=== PATIENT | female | born 1990 | race Caucasian/White ===

== ENCOUNTER 2018-10-22 04:21 | Emergency (ER) | payer BC ==
[~2018-10-22] VITALS: Ht 152.4 cm; Wt 58.1 kg
--- NOTE | 2018-10-22 04:31 | NUR ---
Note undone in EDM - 10/22/18 at 0434 by ELLIE BIBRA FROM HOME. AAOX4. NO RESP DISTRESS NOTED, BREATHING EVEN AND UNLABORED. C/O ANXIETY ATTACK. PT STATES THAT SHE FEELS HER HEART RATE FAST AND FEELS PALPITATION. PT STATES THAT SHE HAD CONSUMMED AND UNKNOWN AMOUNT AF VODKA. SHE REPORTS PASSING OUT FROM DRINKING. PT REPORTS THAT HER ANXIETY ID BECAUSE SHE IS BEING A BAD FRIEND. TO ER BED 9. AWAITING MD FOR MAINE.
--- NOTE | 2018-10-22 04:31 | NUR ---
GABRIELA FROM HOME. AAOX4. NO RESP DISTRESS NOTED, BREATHING EVEN AND UNLABORED. C/O ANXIETY ATTACK. PT STATES THAT SHE FEELS HER HEART RATE FAST AND FEELS PALPITATION. PT IS NOTED TACHYCARDIC ON MONITOR. PT STATES THAT SHE HAD CONSUMMED AND UNKNOWN AMOUNT AF VODKA. SHE REPORTS PASSING OUT FROM DRINKING. PT REPORTS THAT HER ANXIETY ID BECAUSE SHE IS BEING A BAD FRIEND. TO ER BED 9. AWAITING MD FOR MAINE.
[2018-10-22] MEDS ORDERED: LORAZEPAM INJ 2 MG/ML VIAL ONE ×2 (05:10→06:05)
[2018-10-22] MEDS ORDERED: ASPIRIN 81 MG TAB.CHEW ONE (05:10)
[2018-10-22 05:14] LABS: BASOPHILS % (AUTO) 0.4 % (0.0-2.0); EOSINOPHILS % (AUTO) 0.3 % (0.0-6.0); HEMATOCRIT 37 % (33-45); HEMOGLOBIN 12.4 g/dL (11.5-14.8); LYMPHOCYTES # (AUTO) 0.5 /CMM (0.8-4.8); LYMPHOCYTES % (AUTO) 13.8 % (20.0-44.0); MEAN CORPUSCULAR HGB CONC 34 g/dl (31.0-36.0); MEAN CORPUSCULAR VOLUME 95 fL (82-100); MONOCYTES # (AUTO) 0.3 /CMM (0.1-1.30); MONOCYTES % (AUTO) 7.7 % (2.0-12.0); NEUTROPHILS # (AUTO) 3.1 /CMM (1.8-8.9); NEUTROPHILS % (AUTO) 77.8 % (43.0-81.0); PLATELET COUNT (AUTO) 80 /CMM (150-450); RED BLOOD CELL COUNT(AUTO) 3.85 MIL/uL (4.0-5.2)
[2018-10-22] MEDS: ASPIRIN 81 MG TAB.CHEW PO ONE (05:15)
[2018-10-22] MEDS: IV D5/ 0.9% NACL 1,000 ML IV ONE (05:15)
[2018-10-22] MEDS: LORAZEPAM INJ 2 MG/ML VIAL IV ONE ×2 (05:15→06:12)
[2018-10-22 05:19] LABS: CALCIUM, SERUM 9.3 mg/dL (8.5-10.1); CARBON DIOXIDE 25 mmol/L (21-32); CHLORIDE 102 mmol/L (98-107); CREATININE 0.8 mg/dL (0.6-1.3); GLUCOSE 124 mg/dL (74-106); POTASSIUM 3.4 mmol/L (3.5-5.1); SODIUM SERUM 138 mmol/L (136-145); UREA NITROGEN, BLOOD 20 mg/dL (7-18)
[2018-10-22 05:35] LABS: ALANINE AMINOTRANSFERASE 54 U/L (12-78); ALBUMIN 3.8 g/dL (3.4-5.0); ALCOHOL, BLOOD 9 mg/dL (0-0); ALKALINE PHOSPHATASE 68 U/L (46-116); ASPARTATE AMINOTRANSFERASE 69 U/L (15-37); BILIRUBIN,DIRECT 0.1 mg/dL (0.0-0.2); BILIRUBIN,TOTAL 0.6 mg/dL (0.2-1.0); TOTAL PROTEIN, SERUM 7.6 g/dL (6.4-8.2)
[2018-10-22 05:36] LABS: ACETAMINOPHEN 0 ug/ml (10-30); SALICYLATE 1.1 mg/dL (2.8-20.0)
[2018-10-22 05:39] LABS: EOSINOPHILS % (MANUAL) 1 % (0-4); LYMPHOCYTES % (MANUAL) 13 % (16-48); MONOCYTES % (MANUAL) 1 % (0-11.0); NEUTROPHILS % (MANUAL) 85 (42-76)
--- NOTE | 2018-10-22 05:50 | NUR ---
PT REPORTS THAT THE CHEST PALPITATIONS ARE BACK. MD MADE AWARE. ORDER TO DO REPEAT EKG. MED ORDERS RECEIVED WELL
[2018-10-22 06:06] LABS: APPEARANCE,URINE Slightly Cloudy (CLEAR); BILIRUBIN,URINE SMALL (NEGATIVE); BLOOD, URINE Negative Ery/uL (NEGATIVE); COLOR,URINE Other (YELLOW); KETONES,URINE Trace (NEGATIVE); LEUKOCYTE ESTERASE ,URINE Negative (NEGATIVE); NITRITE, URINE Negative (NEGATIVE); PROTEIN,URINE 30 mg/dl (NEGATIVE); UGLUCOSE 250 MG/DL mg/dL (NEGATIVE)
[2018-10-22] MEDS: IV LR 1000 ML 1,000 ML IV ONE (06:23)
--- NOTE | 2018-10-22 06:24 | NUR ---
LULU (BOYFRIEND) [phone] PLEASE CALL FOR ANY INFORMATION PER PT
--- NOTE | 2018-10-22 07:19 | NUR ---
PT AND REPORT GIVEN TO DELTA CUNNINGHAM FOR CAMMIE. PT IN BED SLEEPING. NAD NOTED
[2018-10-22 08:10] LABS: RBC,URINE 0-2 /HPF (0-2); WBC,URINE 0-2 /HPF (0-3)
[2018-10-22 08:11] LABS: BACTERIA,URINE Rare /HPF (None Seen); CALCIUM OXALATE CRYSTALS,UR Few /HPF (None Seen); SQUAMOUS EPITHELIAL CELL,UR Few /HPF (None Seen)
--- NOTE | 2018-10-22 08:18 | NUR ---
LAB IN TO DRAW BLOOD VSS SLEEPING CALM AND QUIET NOW
--- NOTE | 2018-10-22 09:00 | NUR ---
PT. VERBALIZED UNDERSTANDING OF AFTERCARE INSTRUCTIONS.IV removed. Catheter intact and site benign. Pressure and 4x4 applied to site. No bleeding noted.
[2018-10-22 10:22] VITALS: BP 125/74
== END 2018-10-22 10:23 | disposition home or self-care (01) ==
LOC: ER 04:25
DX: R00.0 Tachycardia, unspecified (principal); R07.89 Other chest pain; F41.9 Anxiety disorder, unspecified; R00.2 Palpitations; F10.10 Alcohol abuse, uncomplicated; F12.10 Cannabis abuse, uncomplicated; Y90.0 Blood alcohol level of less than 20 mg/100 ml; Z98.890 Other specified postprocedural states
CPT/HCPCS: 36415; 71045; 80048; 80076; 80307; 80329; 81001; 84484 ×2; 84703; 85025; 85378; 93005 ×2; 96374; 96376; 99284; J2060 ×2; J7042; J7120 ×2; 80305; 81000-TC; G0480

== ENCOUNTER 2020-10-10 21:34 | Emergency (ER) | payer BC ==
[~2020-10-10] VITALS: Ht 152.4 cm; Wt 61.2 kg
--- NOTE | 2020-10-10 21:40 | NUR ---
PT BIBRA C/O NEAR SYNCOPE, WEAKNESS, DIZZINESS. PT AAOX4 BREATHING EVENLY AND UNLABORED. PER PT, SHE "NEARLY PASSED OUT AND FELL FORWARD TO HER KNEES". PT ATTACHED TO MONITOR AND POX. PT HAS 20G IV IN LEFT AC. BLOOD OBTAINED AND SENT TO LAB. PA AT BEDSIDE. WILL CONTINUE TO MONITOR.
--- NOTE | 2020-10-10 21:40 | NUR ---
Note undone in EDM - 10/11/20 at 0007 by PATTIE PT BIBRA C/O NEAR SYNCOPY, WEAKNESS, DIZZINESS. PT AAOX4 BREATHING EVENLY AND UNLABORED. PER PT, SHE "NEARLY PASSED OUT AND FELL FORWARD TO HER KNEES". PT ATTACHED TO MONITOR AND POX. PT HAS 20G IV IN LEFT AC. BLOOD OBTAINED AND SENT TO LAB. PA AT BEDSIDE. WILL CONTINUE TO MONITOR.
--- NOTE | 2020-10-10 21:53 | NUR ---
ATIF VANG - BROTHER. [phone]
[2020-10-10 22:23] LABS: BASOPHILS % (AUTO) 0.4 % (0.0-2.0); EOSINOPHILS % (AUTO) 0.1 % (0.0-6.0); HEMATOCRIT 34 % (33-45); HEMOGLOBIN 11.3 g/dL (11.5-14.8); LYMPHOCYTES # (AUTO) 0.6 K/uL (0.8-4.8); LYMPHOCYTES % (AUTO) 5.1 % (20.0-44.0); MEAN CORPUSCULAR HGB CONC 33 g/dl (31.0-36.0); MEAN CORPUSCULAR VOLUME 101 fL (82-100); MONOCYTES # (AUTO) 0.7 K/uL (0.1-1.30); MONOCYTES % (AUTO) 5.3 % (2.0-12.0); NEUTROPHILS # (AUTO) 11.4 K/uL (1.8-8.9); NEUTROPHILS % (AUTO) 89.1 % (43.0-81.0); PLATELET COUNT (AUTO) 233 K/uL (150-450); RED BLOOD CELL COUNT(AUTO) 3.37 MIL/uL (4.0-5.2); WHITE BLOOD COUNT (AUTO) 12.7 K/uL (4.3-11.0)
[2020-10-10] MEDS ORDERED: IV NS 0.9% 1,000 ML BAG IV ONE (22:30)
[2020-10-10 22:33] LABS: CALCIUM, SERUM 9.2 mg/dL (8.5-10.1); CREATININE 0.5 mg/dL (0.6-1.3); POTASSIUM 4.2 mmol/L (3.5-5.1)
[2020-10-10 22:40] LABS: ALBUMIN 2.5 g/dL (3.4-5.0); BILIRUBIN,DIRECT 1.7 mg/dL (0.0-0.2); BILIRUBIN,TOTAL 2.3 mg/dL (0.2-1.0); TOTAL PROTEIN, SERUM 7.5 g/dL (6.4-8.2)
--- NOTE | 2020-10-10 23:06 | NUR ---
URINE SENT TO LAB
[2020-10-10 23:12] LABS: BILIRUBIN,URINE LARGE (NEGATIVE); COLOR,URINE DARK YELLOW (YELLOW); LEUKOCYTE ESTERASE ,URINE Negative (NEGATIVE); NITRITE, URINE Negative (NEGATIVE); PH,URINE 6.5 (5.0-8.0); PROTEIN,URINE Trace mg/dl (NEGATIVE); UGLUCOSE Negative (NEGATIVE); UROBILINOGEN,URINE >=8.0 EU/dL (0.2)
[2020-10-10 23:25] LABS: BACTERIA,URINE Rare /HPF (None Seen); RBC,URINE NONE SEEN /HPF (0-2); SQUAMOUS EPITHELIAL CELL,UR Few /HPF (None Seen); WBC,URINE NONE SEEN /HPF (0-3)
--- NOTE | 2020-10-10 23:44 | NUR ---
Patient discharged to home in stable condition. Written and verbal after care instructions given. Patient verbalizes understanding of instruction. IV removed. Catheter intact and site benign. Pressure and 4x4 applied to site. No bleeding noted. PT ambulatory with a steady gait
[2020-10-10 23:52] VITALS: BP 136/70
== END 2020-10-11 | disposition home or self-care (01) ==
LOC: ER 21:36
DX: R53.1 Weakness (principal); R55 Syncope and collapse; F10.20 Alcohol dependence, uncomplicated; F32.9 Major depressive disorder, single episode, unspecified; Z98.890 Other specified postprocedural states; Y90.9 Presence of alcohol in blood, level not specified
CPT/HCPCS: 36415; 80048; 80076; 80307; 80320; 81001; 84703; 85025; 93005; 99284; J7030; G0480

== ENCOUNTER 2021-02-22 23:45 | Emergency (ER) | payer BC ==
[~2021-02-22] VITALS: Ht 160 cm; Wt 68.0 kg
[2021-02-23 00:57] VITALS: BP 134/71
== END 2021-02-22 23:58 | disposition left against medical advice (07) ==
LOC: ER 23:51
DX: F41.0 Panic disorder [episodic paroxysmal anxiety] (principal); F32.9 Major depressive disorder, single episode, unspecified; Z98.890 Other specified postprocedural states

== ENCOUNTER 2021-03-26 14:08 | Emergency (ER) | payer BC ==
[~2021-03-26] VITALS: Ht 167.6 cm; Wt 74.8 kg
--- NOTE | 2021-03-26 14:23 | NUR ---
Pj ra c/o bilateral lower extremity swelling +3 and pain 3/10 x 3 days. In room air and denies SOB. Respiration regular and unlabored. Attached to the monitor.
--- NOTE | 2021-03-26 15:35 | NUR ---
Patient does not wish to proceed with medical care recommended by Dr. Beaver. Patient given information related to possible complications, up to and including , which could occur as a result of leaving the hospital at this time. Patient verbalizes understanding of risks involved due to leaving against medical advice. Patient has signed AMA form.
[2021-03-26 15:39] VITALS: BP 129/84
== END 2021-03-26 15:41 | disposition left against medical advice (07) ==
LOC: ER 14:10
DX: R60.0 Localized edema (principal); F32.9 Major depressive disorder, single episode, unspecified; Z98.890 Other specified postprocedural states

== ENCOUNTER 2021-08-23 20:56 | Inpatient (IN) | payer BC ==
[~2021-08-23] VITALS: Ht 152.4 cm; Wt 56.7 kg
--- NOTE | 2021-08-23 21:16 | NUR ---
pt bibra c/o sob in detox facility,pt connected to monitor o2 is 98% to 100% on RA.
[2021-08-23] MEDS ORDERED: IV NS 0.9% 1,000 ML BAG IV ONE (21:30)
[2021-08-23 21:43] LABS: BASOPHILS % (AUTO) 0.3 % (0.0-2.0); EOSINOPHILS % (AUTO) 0.3 % (0.0-6.0); HEMATOCRIT 28 % (33-45); HEMOGLOBIN 9.5 g/dL (11.5-14.8); LYMPHOCYTES # (AUTO) 0.4 K/uL (0.8-4.8); LYMPHOCYTES % (AUTO) 6.9 % (20.0-44.0); MEAN CORPUSCULAR HGB CONC 34 g/dl (31.0-36.0); MEAN CORPUSCULAR VOLUME 102 fL (82-100); MONOCYTES # (AUTO) 0.6 K/uL (0.1-1.30); MONOCYTES % (AUTO) 9.8 % (2.0-12.0); NEUTROPHILS # (AUTO) 4.9 K/uL (1.8-8.9); NEUTROPHILS % (AUTO) 82.7 % (43.0-81.0); PLATELET COUNT (AUTO) 73 K/uL (150-450); RED BLOOD CELL COUNT(AUTO) 2.77 MIL/uL (4.0-5.2)
[2021-08-23 21:53] LABS: CALCIUM, SERUM 8.2 mg/dL (8.5-10.1); CREATININE 1.1 mg/dL (0.6-1.3); POTASSIUM 3.7 mmol/L (3.5-5.1)
--- NOTE | 2021-08-23 22:00 | NUR ---
NS NOT GIVEN MD CANCELLED IT.
[2021-08-23 22:05] LABS: BILIRUBIN,DIRECT 17.2 mg/dL (0.0-0.2); BILIRUBIN,TOTAL 21.4 mg/dL (0.2-1.0)
[2021-08-23 22:20] LABS: ALBUMIN 1.4 g/dL (3.4-5.0)
[2021-08-23] MEDS ORDERED: CEFTRIAXONE 1GM BAG (ER ONLY) 1 GM/50 ML PIGGYBACK IV ONE (22:30)
[2021-08-23] MEDS ORDERED: CEFTRIAXONE 1GM BAG (ER ONLY) 50 ML IV ONE (22:55)
[2021-08-23] MEDS ORDERED: TEMAZEPAM 15 MG CAPSULE PO PRN (23:30)
[2021-08-23] MEDS ORDERED: Z GUARD REMEDY 4 OZ OINT TP PRN (23:30)
[2021-08-23] MEDS ORDERED: LORAZEPAM INJ 2 MG/ML VIAL IV PRN (23:30)
[2021-08-23] MEDS ORDERED: ONDANSETRON HCL/PF 4 MG/2 ML VIAL IVP PRN (23:30)
[2021-08-23] MEDS ORDERED: MORPHINE SULFATE INJ 2 MG/ML DISP.SYRIN IV PRN (23:30)
[2021-08-23] MEDS ORDERED: IV NS 0.9% 1,000 ML IV PRN (23:30)
--- NOTE | 2021-08-24 05:59 | NUR ---
covid swab collected and sent
[2021-08-24 06:19] LABS: BASOPHILS # (AUTO) 0.1 K/uL (0.0-0.2); BASOPHILS % (AUTO) 1.6 % (0.0-2.0); EOSINOPHILS % (AUTO) 0.7 % (0.0-6.0); HEMATOCRIT 26 % (33-45); LYMPHOCYTES # (AUTO) 0.4 K/uL (0.8-4.8); MEAN CORPUSCULAR HGB CONC 35 g/dl (31.0-36.0); MEAN CORPUSCULAR VOLUME 102 fL (82-100); MONOCYTES # (AUTO) 0.6 K/uL (0.1-1.30); MONOCYTES % (AUTO) 9.7 % (2.0-12.0); NEUTROPHILS # (AUTO) 4.7 K/uL (1.8-8.9); PLATELET COUNT (AUTO) 62 K/uL (150-450); RED BLOOD CELL COUNT(AUTO) 2.56 MIL/uL (4.0-5.2); WHITE BLOOD COUNT (AUTO) 5.8 K/uL (4.3-11.0)
[2021-08-24 06:57] LABS: CALCIUM, SERUM 8.2 mg/dL (8.5-10.1); CREATININE 1.2 mg/dL (0.6-1.3); PHOSPHORUS 2.7 mg/dL (2.5-4.9); POTASSIUM 3.6 mmol/L (3.5-5.1)
[2021-08-24] MEDS ORDERED: PANTOPRAZOLE 40 MG TABLET.DR PO SCH (07:30)
--- NOTE | 2021-08-24 07:32 | NUR ---
REPORT GIVEN TO DESEAN SORENSON FOR CAMMIE
[2021-08-24] MEDS ORDERED: FOLIC ACID 1 MG TABLET ONE (08:35)
[2021-08-24] MEDS ORDERED: THIAMINE HCL 100 MG TABLET ONE (08:35)
[2021-08-24] MEDS ORDERED: PANTOPRAZOLE 40 MG TABLET.DR PO ONE (08:35)
[2021-08-24] MEDS ORDERED: FOLIC ACID 1 MG TABLET PO SCH (09:00)
[2021-08-24] MEDS ORDERED: THIAMINE HCL 100 MG TABLET PO SCH (09:00)
[2021-08-24 09:44] LABS: EOSINOPHILS % (MANUAL) 1 % (0-4); LYMPHOCYTES % (MANUAL) 4 % (16-48); MONOCYTES % (MANUAL) 3 % (0-11.0); NEUTROPHILS % (MANUAL) 92 (42-76)
[2021-08-24] MEDS ORDERED: CHOL100043 PO (10:01)
[2021-08-24] MEDS ORDERED: THIA100T70 PO (10:01)
[2021-08-24] MEDS ORDERED: BACI28.42 TP (10:01)
[2021-08-24] MEDS ORDERED: FLUC200T8 PO (10:01)
[2021-08-24] MEDS ORDERED: MULT1TAB70 PO (10:01)
[2021-08-24] MEDS ORDERED: FOLI0.4T6 PO (10:01)
--- NOTE | 2021-08-24 11:55 | NUR ---
IV CANNULA REMOVED
--- NOTE | 2021-08-24 11:55 | NUR ---
PATIENT WENT AMA DESPITE EXPLANATION. FORM SIGNED. DR DOROTHY OSORIO MADE AWARE.
[2021-08-24 12:17] VITALS: BP 138/71
[2021-08-24] MEDS ORDERED: CEFTRIAXONE 1 G in IV D5W 50 ML IV SCH (21:00)
== END 2021-08-24 11:55 | disposition left against medical advice (07) | DRG 372 ==
LOC: ER 21:05 → TRANSITION 08-24 00:36
PROVIDERS: ADMIT Nurse Practitioner Acute Care; ATTEND Nurse Practitioner Acute Care
DX: K65.2 Spontaneous bacterial peritonitis (principal); E87.1 Hypo-osmolality and hyponatremia; K76.6 Portal hypertension; J90 Pleural effusion, not elsewhere classified; K80.70 Calculus of gallbladder and bile duct without cholecystitis without obstruction; D69.59 Other secondary thrombocytopenia; Z53.29 Procedure and treatment not carried out because of patient's decision for other reasons; Z20.822 Contact with and (suspected) exposure to COVID-19; Z98.890 Other specified postprocedural states; F32.A Depression, unspecified; K70.10 Alcoholic hepatitis without ascites; D53.9 Nutritional anemia, unspecified; E88.09 Other disorders of plasma-protein metabolism, not elsewhere classified; F10.10 Alcohol abuse, uncomplicated; Y90.9 Presence of alcohol in blood, level not specified
CPT/HCPCS: 36415; 71045-TC; 80048-TC; 80076-TC; 82140-TC; 83690-TC; 83735-TC; 84100-TC; 84703-TC; 85025-TC; 85730-TC; G0378; J0696; J2060; J2270; J2405; J7030; J7060

== ENCOUNTER 2021-11-19 11:24 | Inpatient (IN) | payer BC ==
[~2021-11-19] VITALS: Ht 152.4 cm; Wt 60.3 kg
[2021-11-19] VITALS: BP 113/43
[~2021-11-19 11:24] MED LIST: BACI28.42 TP; CHOL100043 PO; FLUC200T8 PO; FOLI0.4T6 PO; MULT1TAB70 PO; THIA100T70 PO
--- NOTE | 2021-11-19 11:30 | NUR ---
BIBRA 89 FROM HOME W/ C/O NAUSEA/VOMITING AND LOW BLOOD SUGAR (52); ZOFRAN, D10 AND 250 ML NS GIVEN PERFORMANCE IMPROVEMENT MANAGER. TO ER BED 12.
--- NOTE | 2021-11-19 11:55 | NUR ---
MIRIAM ([facility]) [phone]
[2021-11-19] MEDS ORDERED: IV NS 0.9% 500 ML BAG IV ONE (12:00)
[2021-11-19] MEDS ORDERED: ONDANSETRON HCL/PF 4 MG/2 ML VIAL IVP ONE (12:00)
--- NOTE | 2021-11-19 12:00 | NUR ---
COVID SWAB COLLECTED AND SENT TO LAB
[2021-11-19] MEDS ORDERED: ONDANSETRON HCL/PF 4 MG/2 ML VIAL ONE ×2 (12:15→13:44)
--- NOTE | 2021-11-19 12:15 | NUR ---
PT RETURNED FROM RADIOLOGY
--- NOTE | 2021-11-19 12:25 | NUR ---
IV LINE ON LAC #20 STUDENT ADMISSIONS CLERK; BLOOD DRAWN AND SENT TO LAB.
--- NOTE | 2021-11-19 12:39 | NUR ---
EKG DONE AT BED SIDE
--- NOTE | 2021-11-19 12:42 | NUR ---
PT CONDITION STABL NO PAIN
[2021-11-19 12:55] LABS: SERUM AMMONIA 28 umol/L (11-32)
[2021-11-19 12:59] LABS: ALANINE AMINOTRANSFERASE 43 U/L (12-78); ALBUMIN 2.1 g/dL (3.4-5.0); ALKALINE PHOSPHATASE 122 U/L (46-116); ASPARTATE AMINOTRANSFERASE 258 U/L (15-37); BILIRUBIN,DIRECT 9.2 mg/dL (0.0-0.2); BILIRUBIN,TOTAL 12.6 mg/dL (0.2-1.0); CALCIUM, SERUM 8.2 mg/dL (8.5-10.1); CARBON DIOXIDE 13 mmol/L (21-32); CHLORIDE 98 mmol/L (98-107); CREATININE 0.8 mg/dL (0.6-1.3); GLUCOSE 132 mg/dL (74-106); LIPASE 72 U/L (73-393); SODIUM SERUM 138 mmol/L (136-145); TOTAL PROTEIN, SERUM 8.2 g/dL (6.4-8.2); UREA NITROGEN, BLOOD 10 mg/dL (7-18)
[2021-11-19 13:11] LABS: BASOPHILS % (AUTO) 0.4 % (0.0-2.0); LYMPHOCYTES # (AUTO) 0.4 K/uL (0.8-4.8); LYMPHOCYTES % (AUTO) 9.6 % (20.0-44.0); MEAN CORPUSCULAR HGB CONC 34 g/dl (31.0-36.0); MEAN CORPUSCULAR VOLUME 112 fL (82-100); MONOCYTES # (AUTO) 0.4 K/uL (0.1-1.30); MONOCYTES % (AUTO) 8.3 % (2.0-12.0); NEUTROPHILS # (AUTO) 3.8 K/uL (1.8-8.9); NEUTROPHILS % (AUTO) 81.7 % (43.0-81.0); WHITE BLOOD COUNT (AUTO) 4.6 K/uL (4.3-11.0)
--- NOTE | 2021-11-19 13:15 | NUR ---
TROPONIN 55 PER LAB; DR. LOCKHART MADE AWARE.
[2021-11-19 13:17] LABS: RED BLOOD CELL COUNT(AUTO) 1.45 MIL/uL (4.0-5.2)
[2021-11-19 13:19] LABS: HEMATOCRIT 16 % (33-45); HEMOGLOBIN 5.6 g/dL (11.5-14.8); PLATELET COUNT (AUTO) 32 K/uL (150-450)
[2021-11-19] MEDS ORDERED: IV NS 0.9% 1,000 ML BAG IV ONE (13:30)
[2021-11-19] MEDS ORDERED: CEFTRIAXONE 1GM BAG (ER ONLY) 50 ML IV ONE (13:47)
[2021-11-19] MEDS ORDERED: CEFTRIAXONE 1GM BAG (ER ONLY) 1 GM/50 ML PIGGYBACK IV ONE (14:00)
[2021-11-19] MEDS ORDERED: ONDANSETRON HCL/PF 4 MG/2 ML VIAL IV ONE (14:00)
--- NOTE | 2021-11-19 14:00 | NUR ---
GOT BED 117-2
--- NOTE | 2021-11-19 14:04 | NUR ---
REPORT GIVEN TO NURSE VUONG FOR CAMMIE
[2021-11-19 14:11] LABS: BASOPHILS % (MANUAL) 0 % (0.0-2.0); EOSINOPHILS % (MANUAL) 0 % (0-4); LYMPHOCYTES % (MANUAL) 9 % (16-48); MONOCYTES % (MANUAL) 8 % (0-11.0); NEUTROPHILS % (MANUAL) 83 (42-76)
--- NOTE | 2021-11-19 14:36 | NUR ---
PT TRANSFERRED TO [facility] VIA [facility] ACLS PROTOCOL.
--- NOTE | 2021-11-19 16:00 | NUR ---
[facility] RN OPENING NOTE RECEIVED PATIENT FROM ER VIA VIKTOR ASSISTED BY 2 ER STAFF. ALERT, ORIENTED X 4. ON ROOM AIR. WITH LEFT ANTECUBITAL IV SALINE LOCK, INTACT AND PATENT. INITIAL PHYSICAL ASSESSMENT DONE. ORIENTED PATIENT TO ROOM. PLACED PATIENT ON NPO. BED IS LOCKED IN LOWEST POSITION, 3 SIDE RAILS UP, CALL LIGHT WITHIN REACH. WILL CONTINUE TO MONITOR.
[2021-11-19] MEDS ORDERED: MAGNESIUM HYDROXIDE 30 ML UDC PO PRN (16:30)
[2021-11-19] MEDS ORDERED: ACETAMINOPHEN 325 MG TABLET PO PRN (16:30)
[2021-11-19] MEDS ORDERED: Z GUARD REMEDY 4 OZ OINT TP PRN (16:30)
[2021-11-19] MEDS ORDERED: GUAIFENESIN/D-METHORPHAN HB 5 ML UDC PO PRN (16:30)
--- NOTE | 2021-11-19 16:30 | NUR ---
BRENDAN FALK NOTIFIED REGARDING ELEVATED TROPONIN AND LACTIC ACID.
[2021-11-19] MEDS: POTASSIUM CL. PREMIX PERIPHER. 50 ML IV SCH ×4 (17:27→22:04)
[2021-11-19] MEDS: PANTOPRAZOLE 40 MG VIAL IV SCH (17:52)
[2021-11-19] MEDS ORDERED: PHYTONADIONE INJ 10 MG/1 ML AMPUL SQ ONE (18:30)
[2021-11-19 18:48] VITALS: BP 111/54
--- NOTE | 2021-11-19 18:51 | NUR ---
RN CLOSING NOTE PATIENT IS RESTING COMFORTABLY IN BED. BREATHING UNLABORED AND NOT IN ANY FORM OF DISTRESS. LEFT ANTECUBITAL LINE INTACT AND HAS ONGOING INFUSION OF POTASSIUM 50 ML (2ND BAG OUT 4 BAGS) AND NS AT 75 ML/HR. ZOSYN IV AND BLOOD TRANSFUSION WILL BE GIVEN ONCE ALL REQUIRED POTASSIUM REPLACEMENT BAGS ARE GIVEN. PATIENT IS ON NPO. ALL DUE MEDS GIVEN. ALL SAFETY PRECAUTIONS ARE KEPT IN PLACE. WILL ENDORSE TO [place] AND SILVERWARE SALESPERSON NURSE.
--- NOTE | 2021-11-19 19:38 | NUR ---
[facility] RN OPENING NOTE: RECEIVED PATIENT RESTING COMFORTABLY IN BED. ON RA TOLERATING WELL, BREATHING EVEN AND UNLABORED AND NOT IN ANY FORM OF RESPIRATORY DISTRESS. WITH IV ACCESS ON LEFT ANTECUBITAL LINE INTACT AND HAS ONGOING INFUSION OF POTASSIUM 50 ML (2ND BAG OUT 4 BAGS) AND NS AT 75 ML/HR. AWAITING FOR ZOSYN IV AND BLOOD TRANSFUSION TO BE GIVEN ONCE ALL REQUIRED POTASSIUM REPLACEMENT BAGS ARE GIVEN. PATIENT REMAINS ON NPO. CALL LIGHT WITHIN REACH, BED IN LOWEST AND LOCKED POSITION, SIGNIFICANT OTHER AT BEDSIDE. WILL CONTINUE TO MONITOR CLOSELY.
[2021-11-19 19:46] LABS: OCCULT BLOOD STOOL POSITIVE (NEGATIVE)
[2021-11-19 20:00] VITALS: BP 110/50
[2021-11-19] MEDS: ONDANSETRON HCL/PF 4 MG/2 ML VIAL IVP PRN (20:16)
[2021-11-19] MEDS: PIPERACILLIN /TAZOBACTAM 3.375 G in IV D5W 50 ML IV SCH (23:18)
--- NOTE | 2021-11-19 23:35 | NUR ---
RN NOTE PATIENT REFUSED BLOOD DRAWN FOR ABG, PT IS HARDSTICK TO OBTAIN NEW IV ACCESS. DOC BERJ ORDERED MIDLINE INSERTION. STILL AWAITING FOR BLOOD TRANSFUSION.
[2021-11-20] VITALS (21 sets, daily range): BP systolic 100–120; BP diastolic 43–77
--- NOTE | 2021-11-20 02:40 | NUR ---
RN NOTE BLOOD TRANSFUSION STARTED AT THIS TIME, BLOOD PRODUCT COMPATIBILITY CHECKED, V/S TAKEN AND RECORDED, WILL CONT TO MONITOR CLOSELY FOR ANY ADVERSE REACTION.
--- NOTE | 2021-11-20 03:00 | NUR ---
RN NOTE PATIENT REQUESTED TO HAVE FLUIDS BY MOUTH. SHE'S BEEN NPO SINCE YESTERDAY AFTERNOON DUE TO N/V. INFORMED DOC YADI, ORDERED CLEAR LIQUID DIET TO START NOW.
[2021-11-20] MEDS: PANTOPRAZOLE 40 MG VIAL IV SCH ×2 (04:20→15:35)
--- NOTE | 2021-11-20 06:07 | NUR ---
RN NOTE BLOOD TRANSFUSION DONE AT THIS TIME. PATIENT ABLE TO TOLERATE WELL. V/S TAKEN AND RECORDED, NO ADVERSE REACTION NOTED THROUGHOUT THE TRANSFUSION. NO COMPLAINTS OF SOB AND PAIN, WILL CONT TO MONITOR.
[2021-11-20] MEDS: PIPERACILLIN /TAZOBACTAM 3.375 G in IV D5W 50 ML IV SCH ×3 (06:11→17:54)
--- NOTE | 2021-11-20 06:57 | NUR ---
[facility] RN CLOSING NOTE PATIENT IS RESTING COMFORTABLY IN BED. BREATHING EVEN AND UNLABORED. NOT IN ANY FORM OF DISTRESS. LEFT ANTECUBITAL LINE INTACT RUNNING NS AT 75 ML/HR. S/P 1PRBC. ALL DUE MEDS GIVEN. KEPT DRY AND CLEAN, ALL NEEDS ATTENDED, SAFETY PRECAUTIONS ARE KEPT IN PLACE. SECURITY AT BEDSIDE, CALL LIGHT WITHIN REACH, YESIKA IN LOWEST AND LOCKED POSITION. AWAITING FOR MIDLINE INSERTION, WILL ENDORSE TO AM SHIFT NURSE.
[2021-11-20] MEDS: methylPREDNISolone SOD SUCC 40 MG/ML VIAL IV SCH (08:31)
[2021-11-20] MEDS ORDERED: prednisoLONE 5 MG/5 ML UDC PO SCH (09:00)
[2021-11-20 09:11] LABS: BASOPHILS % (AUTO) 0.6 % (0.0-2.0); EOSINOPHILS % (AUTO) 0.2 % (0.0-6.0); LYMPHOCYTES # (AUTO) 0.5 K/uL (0.8-4.8); LYMPHOCYTES % (AUTO) 13.3 % (20.0-44.0); MEAN CORPUSCULAR HGB CONC 34 g/dl (31.0-36.0); MEAN CORPUSCULAR VOLUME 106 fL (82-100); MONOCYTES # (AUTO) 0.5 K/uL (0.1-1.30); MONOCYTES % (AUTO) 12.5 % (2.0-12.0); NEUTROPHILS # (AUTO) 2.9 K/uL (1.8-8.9); NEUTROPHILS % (AUTO) 73.4 % (43.0-81.0)
[2021-11-20] MEDS: MORPHINE SULFATE INJ 2 MG/ML DISP.SYRIN IV PRN (09:13)
[2021-11-20 09:16] LABS: RED BLOOD CELL COUNT(AUTO) 1.75 MIL/uL (4.0-5.2)
[2021-11-20 09:20] LABS: HEMATOCRIT 19 % (33-45); HEMOGLOBIN 6.3 g/dL (11.5-14.8); PLATELET COUNT (AUTO) 30 K/uL (150-450)
[2021-11-20 09:59] LABS: ALBUMIN 1.9 g/dL (3.4-5.0); BILIRUBIN,DIRECT 8.9 mg/dL (0.0-0.2); BILIRUBIN,TOTAL 12.5 mg/dL (0.2-1.0); CALCIUM, SERUM 7.7 mg/dL (8.5-10.1); CREATININE 1.1 mg/dL (0.6-1.3); POTASSIUM 3.1 mmol/L (3.5-5.1); TOTAL PROTEIN, SERUM 7.5 g/dL (6.4-8.2)
[2021-11-20 10:08] LABS: BAND % (MANUAL) 3 % (0.0-5.0); BASOPHILS % (MANUAL) 0 % (0.0-2.0); EOSINOPHILS % (MANUAL) 0 % (0-4); LYMPHOCYTES % (MANUAL) 13 % (16-48); MAGNESIUM 1.2 mg/dL (1.8-2.4); MONOCYTES % (MANUAL) 10 % (0-11.0); NEUTROPHILS % (MANUAL) 74 (42-76)
[2021-11-20 11:23] LABS: THYROID STIMULATING HORMONE 1.878 uIU/mL (0.358-3.74)
--- NOTE | 2021-11-20 11:58 | NUR ---
[facility]/RN PATIENT WITH ONGOING PRBC TRANSFUSION. ONLY ONE IV ACCESS AT THIS TIME. PT REFUSES PLACEMENT OF NEW PERIPHERAL IV LINE, MIDLINE ORDERED. UNABLE TO ADMINISTER IV MEDICATION AT THIS TIME, WILL HOLD IV ABX UNTIL AFTER BLOOD TRANSFUSION.
[2021-11-20] MEDS ORDERED: POTASSIUM CHLORIDE 20 MEQ TAB.PRT.SR PO SCH (13:00)
[2021-11-20] MEDS ORDERED: Magnesium 1GM/D5W 100ML PREMIX 100 ML IV SCH (13:00)
--- NOTE | 2021-11-20 13:35 | NUR ---
[facility]/RN 1 UNIT PRBC COMPLETED. VITAL SIGNS STABLE. NO SIGNS OF ADVERSE EFFECT.
[2021-11-20] MEDS: Magnesium 1GM/D5W 100ML PREMIX 100 ML IV SCH ×3 (14:26→17:01)
[2021-11-20 15:34] LABS: BASOPHILS % (AUTO) 0.2 % (0.0-2.0); HEMOGLOBIN 7.3 g/dL (11.5-14.8); LYMPHOCYTES # (AUTO) 0.2 K/uL (0.8-4.8); LYMPHOCYTES % (AUTO) 8.1 % (20.0-44.0); MEAN CORPUSCULAR HGB CONC 36 g/dl (31.0-36.0); MEAN CORPUSCULAR VOLUME 101 fL (82-100); MONOCYTES # (AUTO) 0.1 K/uL (0.1-1.30); MONOCYTES % (AUTO) 3.5 % (2.0-12.0); NEUTROPHILS # (AUTO) 2.6 K/uL (1.8-8.9); NEUTROPHILS % (AUTO) 88.2 % (43.0-81.0); RED BLOOD CELL COUNT(AUTO) 2.02 MIL/uL (4.0-5.2)
[2021-11-20] MEDS: IV NS 0.9% 1,000 ML IV PRN (15:35)
[2021-11-20 15:47] LABS: PLATELET COUNT (AUTO) 25 K/uL (150-450)
[2021-11-20 15:48] LABS: HEMATOCRIT 20 % (33-45)
--- NOTE | 2021-11-20 15:56 | NUR ---
[facility]/RN HEMOGLOBIN 7.3, HEMATOCRIT 20 AND PLT 25. DNP FALK NOTIFIED.
[2021-11-20 16:33] LABS: LYMPHOCYTES % (MANUAL) 8 % (16-48); MONOCYTES % (MANUAL) 1 % (0-11.0); NEUTROPHILS % (MANUAL) 91 (42-76)
--- NOTE | 2021-11-20 19:22 | NUR ---
[facility] RN CLOSING NOTE: PATIENT REMAINS IN BED. AWAKE, A0X4. ON RA, BREATHING EVEN AND UNLABORED. NO S/S OF ACUTE DISTRESS. TELE MONITOR READS NSR WITH HR OF 91 BPM AT THIS TIME. LEFT ANTECUBITAL #20 G, PATENT AND INTACT, WITH NS RUNNING @ 75 ML/HR. SHE ALSO HAS HIWOT MIDLINE, PATENT AND INTACT. SALINE LOCKED. DRESSING C/D/I FOR BOTH IV SITES. S/P 2 PRBC THIS SHIFT. VS STABLE. ALL DUE MEDS GIVEN. KEPT DRY AND CLEAN. ALL NEEDS ATTENDED. SAFETY PRECAUTIONS MAINTAINED: SECURITY AT BEDSIDE, CALL LIGHT WITHIN REACH, YESIKA IN LOWEST AND LOCKED POSITION. WILL ENDORSE CONTINUITY OF CARE TO MATERIAL HANDLER LOADER RN.
--- NOTE | 2021-11-20 20:00 | NUR ---
[facility] RN OPENING NOTE: RECEIVED PATIENT IN BED COMFORTABLE.PER ENDORSEMENT PTS S/P PRBC . ON R/A TOLERATING WELL,SATING 99% NO SOB NO DISTRESS NOTED BREATHING EVEN AND UNLABORED AND NOT IN ANY FORM OF RESPIRATORY DISTRESS.V/S STABLE AFEBRILE . IV ACCESS ON LEFT ANTECUBITAL g20 AND RIGHT UPPER ARM MIDLINE LINE BOTH INTACT AND PATENT . IVF OF NS AT 75CC/HR INFUSING WELL . PATIENT ON CLEAR LIQUID ORDERED. .DUE MEDS GIVEN ORDERED NO ASE NOTED CALL LIGHT WITHIN REACH, ALL NEEDS ATTENDED TOO ,BED IN LOWEST AND LOCKED POSITION, WILL CONTINUE TO MONITOR CLOSELY. PER ENDORSEMENT FFP PLASMA AND PLATELETS TO BE GIVEN , SPOKE TO BRAIN IN THE LAB ONLY PLASMA CAN BE GIVEN TONITE BECAUSE PLATELETS NOT AVAILABLE YET MAYBE ERUM .DENISSE IBARRA IN AM TO FOLLOW UP .
--- NOTE | 2021-11-20 21:32 | NUR ---
ryan rn notes FFP plasma started as ordered double check by 2 rn , v/s stable afebrile no ase noted will continue to monitor pts.
--- NOTE | 2021-11-20 22:27 | NUR ---
[facility] RN NOTES FFP PLASMA ENDED AT 2227 HRS WITH NO COMPLICATION NOTED NO ASE NOTED ,V/S STABLE AFEBRILE WILL CONTINUE TO MONITOR PTS.
[2021-11-21] VITALS (12 sets, daily range): BP systolic 115–136; BP diastolic 69–86
[2021-11-21] MEDS: PANTOPRAZOLE 40 MG VIAL IV SCH ×2 (04:39→17:02)
[2021-11-21] MEDS: IV NS 0.9% 1,000 ML IV PRN (05:36)
--- NOTE | 2021-11-21 06:42 | NUR ---
telehealth nurse closing notes Pts in bed comfortably sleeping , on room air. sating 96% no SOB. no S/S of distress noted. Iv site at Right ac # 20 right upper arm ml intact and infusing well NS@ 75ml/hr. VS is stable. Tele monitor showed SR hr 60. Kept Pt clean, dry and comfortable. Safety precautions is maintained. Bed at low position, brakes locked, side rails upX2, hob elevated, bed alarm is on, and call light is within reach. Will endorse to to rn shift for continuity of care, pts refused the am lab will endorse to morning shift to follow up
--- NOTE | 2021-11-21 07:16 | NUR ---
ryan rn notes Received order from dr lori rose to put pts on npo status. order noted and carried out.
--- NOTE | 2021-11-21 08:09 | NUR ---
drivers license examiner OPENING NOTE PATIENT IN BED SLEEPING. PATIENT IS ALERT AND ORIENTED X4. PATIENT IS ON ROOM AIR. NO SIGNS OF PAIN OR DISCOMFORT. PATIENT HAS IV SITE ON RIGHT AC 20 GAUGE. PATIENT HAS RIGHT UPPER ARM MIDLINE. PATIENT IS NPO . ALL Safety precautions is maintained. Bed at lowEST position, SIDE RAILS UP X2.HOB ELEVATED. BED ALARM IS ON. CALL LIGHT WITHIN REACH.WILL CONTINUE TO ASSESS THROUGHOUT SHIFT.
--- NOTE | 2021-11-21 08:12 | NUR ---
PATIENT HAS PRIVATE SECURITY AT BEDSIDE.
--- NOTE | 2021-11-21 08:12 | NUR ---
PLATELETS READY FOR PICKUP
[2021-11-21] MEDS: methylPREDNISolone SOD SUCC 40 MG/ML VIAL IV SCH (08:58)
[2021-11-21 09:22] LABS: BASOPHILS % (AUTO) 1.1 % (0.0-2.0); HEMATOCRIT 22 % (33-45); HEMOGLOBIN 7.8 g/dL (11.5-14.8); LYMPHOCYTES # (AUTO) 0.2 K/uL (0.8-4.8); LYMPHOCYTES % (AUTO) 5.1 % (20.0-44.0); MEAN CORPUSCULAR HGB CONC 35 g/dl (31.0-36.0); MEAN CORPUSCULAR VOLUME 101 fL (82-100); MONOCYTES # (AUTO) 0.4 K/uL (0.1-1.30); MONOCYTES % (AUTO) 12.2 % (2.0-12.0); NEUTROPHILS # (AUTO) 2.9 K/uL (1.8-8.9); NEUTROPHILS % (AUTO) 81.6 % (43.0-81.0); RED BLOOD CELL COUNT(AUTO) 2.23 MIL/uL (4.0-5.2); WHITE BLOOD COUNT (AUTO) 3.6 K/uL (4.3-11.0)
[2021-11-21 09:25] LABS: BILIRUBIN,TOTAL 13.2 mg/dL (0.2-1.0); CALCIUM, SERUM 7.4 mg/dL (8.5-10.1); MAGNESIUM 2.2 mg/dL (1.8-2.4); PHOSPHORUS 1.1 mg/dL (2.5-4.9); POTASSIUM 3.2 mmol/L (3.5-5.1); TOTAL PROTEIN, SERUM 7.4 g/dL (6.4-8.2)
[2021-11-21 09:51] LABS: PLATELET COUNT (AUTO) 27 K/uL (150-450)
[2021-11-21 10:08] LABS: BAND % (MANUAL) 3 % (0.0-5.0); BASOPHILS % (MANUAL) 0 % (0.0-2.0); EOSINOPHILS % (MANUAL) 0 % (0-4); LYMPHOCYTES % (MANUAL) 6 % (16-48); MONOCYTES % (MANUAL) 9 % (0-11.0); NEUTROPHILS % (MANUAL) 82 (42-76)
--- NOTE | 2021-11-21 10:41 | NUR ---
NOTIFIED DR. FALK ON PLATELETS. AWARE. PLATELET TRANSFUSION
[2021-11-21] MEDS ORDERED: Sodium Phosphate 15 MMOL in IV NS 0.9% 245 ML IV SCH (11:00)
--- NOTE | 2021-11-21 13:23 | NUR ---
telemarketing representative note suspicious smell of weed in the room, notified security and Blair. Blair, security and rn went to the room to educate the importance of not smoking in room. pt and family verbalized understanding.
--- NOTE | 2021-11-21 15:43 | NUR ---
telesales supervisor note patient has private security at bedside
[2021-11-21] MEDS: MORPHINE SULFATE INJ 2 MG/ML DISP.SYRIN IV PRN (18:15)
--- NOTE | 2021-11-21 18:15 | NUR ---
PT COMPLAINING OF PAIN ON A SCALE OF 0-10. GAVE MORPHINE PATIENT IS ALSO COMPLAING OF NAUSEA.GAVE ZOFRAN
[2021-11-21] MEDS: ONDANSETRON HCL/PF 4 MG/2 ML VIAL IVP PRN (18:26)
--- NOTE | 2021-11-21 18:43 | NUR ---
PAVING INSPECTOR CLOSING NOTE PATIENT IS AWAKE, ALERT AND ORIENTED X4. PATIENT O2 TOLERATING WELL ABOVE 95%. PATIENT IS ON ROOM AIR. PATIENT HAS IV SITE ON RIGHT AC 20 GAUGE, RIGHT UPPER ARM MIDLINE. IV PATENT AND FLUSHING WELL. PATIENT IS ON CLEAR LIQUID DIET . PATIENT USES BEDSIDE COMMODE. ALL Safety precautions is maintained. Bed LOCKED AT LOWEST. position,SIDE RAILS UP X2.HOB ELEVATED. . CALL LIGHT WITHIN REACH.
--- NOTE | 2021-11-21 19:30 | NUR ---
MS RN OPENING NOTE RECEIVED PATIENT IN ASLEEP IN BED, A/OX4, BODYGUARD/SECURIY AT BEDSIDE.PATIENT ON RA TOLERATING WELL, NO S/S OF ACUTE RESP DISTRESS.BREATHING EVEN AND UNLABORED.V/S STABLE. IV ACCESS ON LAC g20 AND HIWOT MIDLINE LINE BOTH INTACT AND PATENT.CALL LIGHT WITHIN REACH,BED IN LOWEST AND LOCKED POSITION, WILL CONTINUE TO MONITOR
--- NOTE | 2021-11-22 01:36 | NUR ---
MS RN NOTE UA WAS COLLECTED, LAB WAS CALLED FOR PICKUP.
[2021-11-22 04:00] VITALS: BP 129/78
[2021-11-22] MEDS: PANTOPRAZOLE 40 MG VIAL IV SCH ×2 (05:17→17:19)
[2021-11-22 07:06] LABS: HEMATOCRIT 23 % (33-45); HEMOGLOBIN 7.9 g/dL (11.5-14.8); MEAN CORPUSCULAR HGB CONC 35 g/dl (31.0-36.0); MEAN CORPUSCULAR VOLUME 101 fL (82-100); RED BLOOD CELL COUNT(AUTO) 2.28 MIL/uL (4.0-5.2); WHITE BLOOD COUNT (AUTO) 2.9 K/uL (4.3-11.0)
--- NOTE | 2021-11-22 07:08 | NUR ---
MS RN CLOSING NOTE PATIENT IS ASLEEP IN BED, EASILY AROUSABLE, PATIENT ON RA TOLERATING WELL, NO S/S OF ACUTE RESP DISTRESS.BREATHING EVEN AND UNLABORED.V/S STABLE. PATIENT ABLE TO MAKE NEEDS KNOWN. ALL DUE MEDS GIVEN. CALL LIGHT WITHIN REACH,BED IN LOWEST AND LOCKED POSITION, WILL ENDORSE TO MORNING SHIFT.
[2021-11-22 07:20] LABS: ALBUMIN 1.9 g/dL (3.4-5.0); BILIRUBIN,DIRECT 10.4 mg/dL (0.0-0.2); BILIRUBIN,TOTAL 14.6 mg/dL (0.2-1.0); MAGNESIUM 2.3 mg/dL (1.8-2.4); TOTAL PROTEIN, SERUM 7.3 g/dL (6.4-8.2)
--- NOTE | 2021-11-22 07:30 | NUR ---
superintendent marine oil terminal OPENING NOTE PATIENT IN BED SLEEPING. PATIENT IS ALERT AND ORIENTED X4. PATIENT IS ON ROOM AIR. NO SIGNS OF PAIN OR DISCOMFORT. PATIENT HAS IV SITE ON RIGHT AC 20 GAUGE. PATIENT HAS RIGHT UPPER ARM MIDLINE. IV PATENT AND FLUSHES WELL. PATIENT IS NPO . ALL Safety precautions is maintained. Bed at lowEST position,SIDE RAILS UP X2.HOB ELEVATED. BED ALARM IS ON. CALL LIGHT WITHIN REACH.WILL CONTINUE TO ASSESS THROUGHOUT SHIFT.
[2021-11-22 07:45] LABS: PLATELET COUNT (AUTO) 37 K/uL (150-450)
[2021-11-22 08:00] VITALS: BP 116/70
[2021-11-22 08:46] LABS: CALCIUM, SERUM 7.8 mg/dL (8.5-10.1); CREATININE 0.8 mg/dL (0.6-1.3); PHOSPHORUS 2.4 mg/dL (2.5-4.9); POTASSIUM 3.1 mmol/L (3.5-5.1)
[2021-11-22] MEDS: methylPREDNISolone SOD SUCC 40 MG/ML VIAL IV SCH ×2 (09:00→13:00)
[2021-11-22] MEDS: FOLIC ACID 1 MG TABLET PO SCH (09:00)
[2021-11-22 09:09] LABS: BASOPHILS % (MANUAL) 1 % (0.0-2.0); EOSINOPHILS % (MANUAL) 0 % (0-4); LYMPHOCYTES % (MANUAL) 9 % (16-48); MONOCYTES % (MANUAL) 13 % (0-11.0); NEUTROPHILS % (MANUAL) 77 (42-76)
--- NOTE | 2021-11-22 10:00 | NUR ---
critical lab platelets 37 Addendum: 11/22/21 at 1342 by RAY ALVARADO RN notified dr. rose
[2021-11-22] MEDS: POTASSIUM CL. PREMIX PERIPHER. 50 ML IV SCH ×4 (11:06→14:00)
[2021-11-22] MEDS: ONDANSETRON HCL/PF 4 MG/2 ML VIAL IVP PRN ×2 (11:33→12:49)
--- NOTE | 2021-11-22 11:38 | NUR ---
private security at bedside
--- NOTE | 2021-11-22 11:38 | NUR ---
maria eugenia up cal, patient refused. notified charge nurse. waste in pharmaceutical waste only container in med room
[2021-11-22 12:00] VITALS: BP 159/83
[2021-11-22] MEDS ORDERED: METOCLOPRAMIDE HCL 10 MG/2 ML VIAL IV PRN (13:00)
--- NOTE | 2021-11-22 13:41 | NUR ---
rounds with dr. rose rose ordered reglan for nausa, vomiting
--- NOTE | 2021-11-22 13:41 | NUR ---
private security at bedside
--- NOTE | 2021-11-22 14:02 | NUR ---
patient picked up for surgery. gave report to kell. for procedure EGD. dr. rose aware
--- NOTE | 2021-11-22 14:59 | NUR ---
patient's fiance at bedside
--- NOTE | 2021-11-22 15:00 | NUR ---
4TH DOSE OF KCL IVPB NOT GIVEN PT. WENT FOR EGD.PHARMACY NOTIFIED,WILL GIVE POST EGD.
[2021-11-22 16:00] VITALS: BP 151/91
--- NOTE | 2021-11-22 16:19 | NUR ---
patient back from surgery. patient is back on regular diet. will follow up
[2021-11-22] MEDS ORDERED: Sodium Phosphate 30 MMOL in IV NS 0.9% 250 ML IV SCH (17:00)
[2021-11-22] MEDS ORDERED: POTASSIUM CL. PREMIX PERIPHER. 50 ML IV SCH (17:00)
--- NOTE | 2021-11-22 19:30 | NUR ---
MS RN OPENING NOTE RECEIVED PATIENT IN AWAKE IN BED, A/OX4, BODYGUARD/SECURIY AT BEDSIDE.PATIENT ON RA TOLERATING WELL, NO S/S OF ACUTE RESP DISTRESS.BREATHING EVEN AND UNLABORED.PATIENT HAS A HR OF 101, OTHER V/S STABLE. IV ACCESS ON LAC g20 RUNNING SODIUM PHOSPHATE AT AND HIWOT MIDLINE LINE BOTH INTACT AND PATENT.CALL LIGHT WITHIN REACH,BED IN LOWEST AND LOCKED POSITION, WILL CONTINUE TO MONITOR
--- NOTE | 2021-11-22 19:30 | NUR ---
account development associate closing NOTE PATIENT IN BED SLEEPING. PATIENT IS ALERT AND ORIENTED X4. PATIENT IS ON ROOM AIR. NO SIGNS OF PAIN OR DISCOMFORT. PATIENT HAS IV SITE ON RIGHT AC 20 GAUGE. PATIENT HAS RIGHT UPPER ARM MIDLINE. IV PATENT AND FLUSHES WELL. PATIENT IS on regular diet. patient has bedside commode. SECURITY AT BEDSIDE.ALL Safety precautions is maintained. Bed at LOWEST position,SIDE RAILS UP X2.HOB ELEVATED. BED ALARM IS ON. CALL LIGHT WITHIN REACH.endorse to hourly shift rn
[2021-11-22 20:00] VITALS: BP 123/78
--- NOTE | 2021-11-22 22:48 | NUR ---
MS RN NOTE PLATELETS UNIT STARTED DURING DOWNTIME. VSS. TEMP 98.7, HR 104, RESP 18, BP 128/81, O2 SAT 98%. MANUALLY FILLING OUT FORM. CHECKLIST WAS WITNESSED AND VERIFIED WITH CHARGE NURSE
--- NOTE | 2021-11-22 23:03 | NUR ---
MS RN NOTE 15 MINUTES AFTER PLATELET TRANSFUSION BEGAN. VSS. TEMP 98, HR 93, RESP 19, BP 130/78, O2 SAT 98%
--- NOTE | 2021-11-22 23:33 | NUR ---
MS RN NOTE 30 MINUTES AFTER PLATELETS STARTED VSS. TEMP 98.1, HR 105, RESP 18, BP 119/77, O2 SAT 98%
--- NOTE | 2021-11-22 23:48 | NUR ---
MS RN NOTE PLATELETS JUST ENDED AND VSS. TEMP 98.7, HR 102, RESP 18, BP 135/80, O2 SAT 99%.
[2021-11-23] VITALS: BP 135/80
--- NOTE | 2021-11-23 00:10 | NUR ---
MS RN NOTE BLOOD TRANSFUSION DOWNTIME MANUAL FORM IS COMPLETE AND VERIFIED BY CHARGE NURSE MINERVA. FORM IN PATIENT CHART.
[2021-11-23 04:00] VITALS: BP 119/65
[2021-11-23] MEDS: PANTOPRAZOLE 40 MG VIAL IV SCH ×2 (04:55→16:36)
--- NOTE | 2021-11-23 07:10 | NUR ---
RN NOTE RECEIVED PATIENT IN BED RESTING ALERT ORIENTED X4 VERBALLY RESPONSIVE ON ROOM AIRO2:98% IV SITE IS LEFT AC AND RIGHT UPPER ARM MIDLINE INTACT PATENT,CONTIENT BOWEL/BLADDER AMBULATORY WITH ASSIST,SAFETY MEASURE IMPLEMENT BED IN LOW POSITION AND LOCKED,HEAD OF THE BED ELEVATED,CALL LIGHT WITHIN REACH CONTINUE TO MONITOR.
[2021-11-23 07:37] LABS: BASOPHILS % (AUTO) 0.3 % (0.0-2.0); EOSINOPHILS % (AUTO) 0.6 % (0.0-6.0); HEMATOCRIT 23 % (33-45); LYMPHOCYTES # (AUTO) 0.2 K/uL (0.8-4.8); LYMPHOCYTES % (AUTO) 6.5 % (20.0-44.0); MEAN CORPUSCULAR HGB CONC 35 g/dl (31.0-36.0); MEAN CORPUSCULAR VOLUME 99 fL (82-100); MONOCYTES # (AUTO) 0.6 K/uL (0.1-1.30); MONOCYTES % (AUTO) 23.6 % (2.0-12.0); NEUTROPHILS # (AUTO) 1.7 K/uL (1.8-8.9); RED BLOOD CELL COUNT(AUTO) 2.28 MIL/uL (4.0-5.2); WHITE BLOOD COUNT (AUTO) 2.5 K/uL (4.3-11.0)
[2021-11-23 07:46] LABS: PLATELET COUNT (AUTO) 35 K/uL (150-450)
--- NOTE | 2021-11-23 08:00 | NUR ---
RN NOTE RECEIVED A CALL FROM THE LAB PLATELET IS [address] SAID IF NO BLEEDING NO PROCEDURE JUST OBSERVE,NOTED AND CARRIED OUT CONTINUE TO MONITOR.
[2021-11-23 08:06] LABS: IMMUNOGLOBULIN A, SERUM 461 mg/dL (87-352); IMMUNOGLOBULIN G, SERUM 3087 mg/dL (586-1602); IMMUNOGLOBULIN M, SERUM 293 mg/dL (26-217)
[2021-11-23 08:48] LABS: ALBUMIN 1.8 g/dL (3.4-5.0); BILIRUBIN,TOTAL 15.8 mg/dL (0.2-1.0); CALCIUM, SERUM 7.9 mg/dL (8.5-10.1); CREATININE 0.7 mg/dL (0.6-1.3); TOTAL PROTEIN, SERUM 6.9 g/dL (6.4-8.2)
[2021-11-23] MEDS: prednisoLONE 5 MG/5 ML UDC PO SCH (08:58)
[2021-11-23] MEDS: FOLIC ACID 1 MG TABLET PO SCH (08:58)
--- NOTE | 2021-11-23 09:00 | NUR ---
RN NOTE RECEIVED A CALL FROM LAB POTASSIUM 2.[address] FALK AND RECEIVED ORDER FOR POTASSIUM IV AND PO ORDER NOTED AND CARRIED OUT.
[2021-11-23 09:12] LABS: POTASSIUM 2.6 mmol/L (3.5-5.1)
--- NOTE | 2021-11-23 09:24 | NUR ---
LOW PLATELET AND LOW K RELAYED TO MD ,ORDERS OBTAINED RELAYED TO PRIMARY RN.
--- NOTE | 2021-11-23 09:25 | NUR ---
PER HOSPICE VOLUNTEER IF NO BLEEDING ,NO PROCEDURE DONT TRANSFUSE PLATELET,PER PRIMARY RN NO BLEEDING AT HIS TIME AND NO PROCEDURE, AWARE.
[2021-11-23] MEDS: POTASSIUM CL. PREMIX PERIPHER. 50 ML IV SCH ×5 (09:48→14:24)
[2021-11-23] MEDS: POTASSIUM CHLORIDE 20 MEQ TAB.PRT.SR PO SCH ×2 (09:48→11:29)
[2021-11-23] MEDS: SPIRONOLACTONE 25 MG TABLET PO SCH (10:47)
--- NOTE | 2021-11-23 11:35 | NUR ---
RN NOTE PATIENT REFUSES PO POTASSIUM BUT IV IS OK NOTIFIED DR DEYA CARDONA, SAID OK CONTINUE TO MONITOR.
[2021-11-23 11:54] LABS: BASOPHILS % (MANUAL) 0 % (0.0-2.0); EOSINOPHILS % (MANUAL) 0 % (0-4); LYMPHOCYTES % (MANUAL) 8 % (16-48); MONOCYTES % (MANUAL) 16 % (0-11.0); NEUTROPHILS % (MANUAL) 76 (42-76)
[2021-11-23 12:00] VITALS: BP 123/75
--- NOTE | 2021-11-23 17:32 | NUR ---
RN NOTE RECEIVED A CRITICAL LAB RESULT FIBRINOGEN [address] FALK CONTINUE TO MONITOR.
--- NOTE | 2021-11-23 18:40 | NUR ---
RN NOTE PATIENT REMAINS ALERT ORIENTED X4 ON ROOM AIR NO SOB NOTED,ALL DUE MEDS GIVEN MD ORDERED KEPT CLEAN AND DRY ALL THE TIME,ENDORSE NEXT COMING SHIFT FOR CONTINUATION OF CARE.
--- NOTE | 2021-11-23 19:40 | NUR ---
RN OPENING NOTES: RECEIVED PT IN BED, AWAKE, ALERT/ORIENTED X4 AND VERBALLY RESPONSIVE. ON ROOM AIR AND PT TOLERATED WELL. GUARD AT BEDSIDE. IV ACCESS ON LAC#20 G AND HIWOT MIDLINE #20G INTACT AND PATENT. NO S/S OF INFILTRATIONS. NO C/O PAIN OE DISCOMFORT. NO ACUTE DISTRESS. ABLE TO USE BEDSIDE COMMODE WITH ASSIST. ALL SAFETY MEASURES IN PLACE. BED IN LOWEST POSITION AND LOCKED. SIDE RAILS UP X3, BED ALARM ON. PLACE CALL LIGHT WITH IN REACH. WILL CONTINUE TO MONITOR
[2021-11-23 20:00] VITALS: BP 134/83
[2021-11-23] MEDS: MORPHINE SULFATE INJ 2 MG/ML DISP.SYRIN IV PRN (21:27)
--- NOTE | 2021-11-23 21:35 | NUR ---
RN NOTES: PT C/O SEVERE ABDOMEN PAIN, 9/10 PAIN SCALE. MORPHINE GIVEN PER PRN ORDERED AND PT TOLERATED WELL. WILL CONTINUE TO MONITOR
[2021-11-24 04:00] VITALS: BP 136/82
[2021-11-24] MEDS: PANTOPRAZOLE 40 MG VIAL IV SCH ×2 (04:39→16:30)
--- NOTE | 2021-11-24 06:39 | NUR ---
RN CLOSING NOTES: PT IN BED, AWAKE, ALERT/ORIENTED X4 AND VERBALLY RESPONSIVE. ON ROOM AIR AND PT TOLERATED WELL. O2 SAT 96%. IV ACCESS ON LAC#20 G AND HIWOT MIDLINE #20G INTACT AND PATENT. NO S/S OF INFILTRATIONS. NO C/O PAIN OE DISCOMFORT. NO ACUTE DISTRESS. ABLE TO USE BEDSIDE COMMODE WITH ASSIST. ALL DUE MEDS GIVEN ORDERED. ALL SAFETY MEASURES IN PLACE. BED IN LOWEST POSITION AND LOCKED. SIDE RAILS UP X3, BED ALARM ON. PLACE CALL LIGHT WITH IN REACH. WILL ENDORSE TO MORNING SHIFT NURSE.
[2021-11-24 06:57] LABS: ALBUMIN 1.8 g/dL (3.4-5.0); CALCIUM, SERUM 8.3 mg/dL (8.5-10.1); CREATININE 0.6 mg/dL (0.6-1.3); MAGNESIUM 1.9 mg/dL (1.8-2.4); POTASSIUM 3.6 mmol/L (3.5-5.1); TOTAL PROTEIN, SERUM 7.3 g/dL (6.4-8.2)
[2021-11-24 07:10] LABS: HEMATOCRIT 25 % (33-45); HEMOGLOBIN 8.9 g/dL (11.5-14.8); MEAN CORPUSCULAR HGB CONC 35 g/dl (31.0-36.0); MEAN CORPUSCULAR VOLUME 99 fL (82-100); RED BLOOD CELL COUNT(AUTO) 2.56 MIL/uL (4.0-5.2); WHITE BLOOD COUNT (AUTO) 4.1 K/uL (4.3-11.0)
--- NOTE | 2021-11-24 07:47 | NUR ---
OPENING NOTES: PT IN BED, AWAKE, ALERT/ORIENTED X4 AND VERBALLY RESPONSIVE. ON ROOM AIR AND PT TOLERATED WELL. IV ACCESS ON LAC#20 G AND HIWOT MIDLINE #20G INTACT AND PATENT. NO S/S OF INFILTRATIONS. NO C/O PAIN OE DISCOMFORT. NO ACUTE DISTRESS. ALL SAFETY MEASURES IN PLACE. BED IN LOWEST POSITION AND LOCKED. SIDE RAILS UP X3, BED ALARM ON. PLACE CALL LIGHT WITH IN REACH. WILL CONTINUE THE PLAN OF CARE.
[2021-11-24 07:50] LABS: PLATELET COUNT (AUTO) 42 K/uL (150-450)
--- NOTE | 2021-11-24 07:50 | NUR ---
RN NOTE RECEIVED LAB RESULT OF PLATELET 42. PREVIOUS PLATELET COUNT 35 TRENDING UP.
[2021-11-24 08:00] VITALS: BP 128/84
[2021-11-24] MEDS: FOLIC ACID 1 MG TABLET PO SCH ×3 (08:16→12:00)
[2021-11-24] MEDS: SPIRONOLACTONE 25 MG TABLET PO SCH ×3 (08:16→12:00)
[2021-11-24] MEDS: prednisoLONE 5 MG/5 ML UDC PO SCH ×3 (08:17→12:00)
--- NOTE | 2021-11-24 08:54 | NUR ---
RN NOTE PATIENT REFUSED AM MEDICATION, DISCUSSED WITH PATIENT THE IMPORTANCE OF MEDICATION, PATIENT STILL REFUSED MEDICATION.
[2021-11-24 10:34] LABS: BAND % (MANUAL) 2 % (0.0-5.0); LYMPHOCYTES % (MANUAL) 4 % (16-48); MONOCYTES % (MANUAL) 20 % (0-11.0); NEUTROPHILS % (MANUAL) 74 (42-76)
[2021-11-24 11:07] LABS: *ANA ANTI-CENTROMERE B AB <0.2 AI (0.0-0.9); *ANA ANTI-DNA(DS) AB, QN 15 IU/mL (0-9); *ANA ANTI-JO-1 <0.2 AI (0.0-0.9); *ANA ANTICHROMATIN ANTIBODY 0.2 AI (0.0-0.9); *ANA RNP ANTIBODIES <0.2 AI (0.0-0.9); *ANA SJOGREN'S ANTI-SS-A <0.2 AI (0.0-0.9); *ANA SJOGREN'S ANTI-SS-B <0.2 AI (0.0-0.9); *ANAANTI-SCLERODERMA-70 AB <0.2 AI (0.0-0.9); *ANASMITH AB <0.2 AI (0.0-0.9)
[2021-11-24] MEDS ORDERED: PRED15SO6 PO (11:47)
[2021-11-24] MEDS ORDERED: SPIR25TA6 PO (11:51)
[2021-11-24] MEDS ORDERED: FOLI0.8C PO (11:51)
[2021-11-24] MEDS ORDERED: ONDA4TAB11 PO (11:51)
[2021-11-24] MEDS ORDERED: PANT20TA2 PO (11:51)
[2021-11-24 13:06] LABS: *SPE A/G RATIO 0.6 (0.7-1.7); *SPE ALPHA-1-GLOBULIN 0.3 g/dL (0.0-0.4); *SPE ALPHA-2-GLOBULIN 0.3 g/dL (0.4-1.0); *SPE BETA GLOBULIN 0.5 g/dL (0.7-1.3); *SPE M-SPIKE Not Observed g/dL (Not Observed)
[2021-11-24 16:00] VITALS: BP 134/85
[2021-11-24 17:15] VITALS: BP 122/74
--- NOTE | 2021-11-24 17:50 | NUR ---
RN note patient sp cryo transfusion no reaction noted patient a/ox4 states " I feel fine". VITAL SIGNS STABLE
--- NOTE | 2021-11-24 18:02 | NUR ---
RN NOTE DISCHARGE INSTRUCTIONS GIVEN TO PATIENT, PATIENT REMINDED TO FOLLOW UP WITH PCP AND GI, ALSO TAKE PRESCRIBED MEDICATIONS. PATIENT STATED "OKAY I WILL MAKE A APPOINTMENT". NO FURTHER QUESTIONS
--- NOTE | 2021-11-24 18:30 | NUR ---
RN NOTE PATIENT TAKEN TO FRONT LOBBY PICKED UP BY FRIEND.
== END 2021-11-24 18:56 | disposition home or self-care (01) | DRG 441 ==
LOC: ER 11:27 → TELE1 14:12 → TELE-TD 16:18 → MEDSG1 11-21 08:41
PROVIDERS: ADMIT Nurse Practitioner Family; ATTEND Nurse Practitioner Family
PROC: 30233N1 Transfusion of Nonautologous Red Blood Cells into Peripheral Vein, Percutaneous Approach (ICD-10-PCS; principal; 2021-11-19)
PROC: 05HB33Z Insertion of Infusion Device into Right Basilic Vein, Percutaneous Approach (ICD-10-PCS; 2021-11-20)
PROC: 0DJ08ZZ Inspection of Upper Intestinal Tract, Via Natural or Artificial Opening Endoscopic (ICD-10-PCS; 2021-11-22)
DX: K76.6 Portal hypertension (principal); I21.A1 Myocardial infarction type 2; J69.0 Pneumonitis due to inhalation of food and vomit; E44.0 Moderate protein-calorie malnutrition; E87.2 Acidosis; D61.818 Other pancytopenia; D68.9 Coagulation defect, unspecified; J98.11 Atelectasis; K31.89 Other diseases of stomach and duodenum; D69.6 Thrombocytopenia, unspecified; K70.31 Alcoholic cirrhosis of liver with ascites; Z20.822 Contact with and (suspected) exposure to COVID-19; Z98.890 Other specified postprocedural states; F32.A Depression, unspecified; E87.6 Hypokalemia; E80.6 Other disorders of bilirubin metabolism; E88.09 Other disorders of plasma-protein metabolism, not elsewhere classified; Y90.9 Presence of alcohol in blood, level not specified; K80.20 Calculus of gallbladder without cholecystitis without obstruction; D53.9 Nutritional anemia, unspecified; E83.42 Hypomagnesemia; K76.0 Fatty (change of) liver, not elsewhere classified; E53.8 Deficiency of other specified B group vitamins; D73.1 Hypersplenism; D72.821 Monocytosis (symptomatic); R74.01 Elevation of levels of liver transaminase levels; E16.2 Hypoglycemia, unspecified; N20.0 Calculus of kidney; N28.1 Cyst of kidney, acquired
CPT/HCPCS: 36415; 71045-TC; 76700-TC; 80048-TC; 80053-TC; 80076-TC; 82140-TC; 82272-TC; 82607-TC; 82728-TC; 82784; 83010; 83540-TC; 83605-TC; 83615-TC; 83690-TC; 83735-TC; 84100-TC; 84155; 84165; 84443-TC; 84484-TC; 84702-TC; 85025-TC; 85045-TC; 85385-TC; 85610-TC; 85730-TC; 86140-TC; 86225; 86235; 86334; 86431-TC; 86706; 86803; 86850-TC; 87040-TC; 87081-TC; 87086-TC; 87340; 93307-TC; A9563; C9113; C9803; G0378; J0696; J2270; J2405; J2543; J2704; J2765; J2920; J3430; J3475; J3480; J3490; J7030; J7040; J7050; J7060; J7510; P9012; P9016; P9017; P9034; U0003

== ENCOUNTER 2021-11-27 16:03 | Emergency (ER) | payer BC ==
[~2021-11-27] VITALS: Ht 157.5 cm; Wt 62.1 kg
[~2021-11-27 16:03] MED LIST changes: -BACI28.42 TP; -CHOL100043 PO; -FLUC200T8 PO; -FOLI0.4T6 PO; +FOLI0.8C PO; -MULT1TAB70 PO; +ONDA4TAB11 PO; +PANT20TA2 PO; +PRED15SO6 PO; +SPIR25TA6 PO; -THIA100T70 PO
[2021-11-27 17:23] LABS: BASOPHILS % (AUTO) 0.8 % (0.0-2.0); EOSINOPHILS % (AUTO) 0.6 % (0.0-6.0); HEMATOCRIT 29 % (33-45); HEMOGLOBIN 9.7 g/dL (11.5-14.8); LYMPHOCYTES # (AUTO) 0.2 K/uL (0.8-4.8); LYMPHOCYTES % (AUTO) 4.5 % (20.0-44.0); MEAN CORPUSCULAR HGB CONC 34 g/dl (31.0-36.0); MEAN CORPUSCULAR VOLUME 102 fL (82-100); MONOCYTES # (AUTO) 1.1 K/uL (0.1-1.30); MONOCYTES % (AUTO) 23.8 % (2.0-12.0); NEUTROPHILS # (AUTO) 3.3 K/uL (1.8-8.9); NEUTROPHILS % (AUTO) 70.3 % (43.0-81.0); RED BLOOD CELL COUNT(AUTO) 2.79 MIL/uL (4.0-5.2); WHITE BLOOD COUNT (AUTO) 4.7 K/uL (4.3-11.0)
[2021-11-27 17:36] LABS: CALCIUM, SERUM 8.6 mg/dL (8.5-10.1); CARBON DIOXIDE 22 mmol/L (21-32); CHLORIDE 104 mmol/L (98-107); CREATININE 0.6 mg/dL (0.6-1.3); GLUCOSE 101 mg/dL (74-106); POTASSIUM 3.3 mmol/L (3.5-5.1); SODIUM SERUM 134 mmol/L (136-145); UREA NITROGEN, BLOOD 12 mg/dL (7-18)
[2021-11-27 17:41] LABS: ALANINE AMINOTRANSFERASE 30 U/L (12-78); ALBUMIN 1.7 g/dL (3.4-5.0); ALKALINE PHOSPHATASE 121 U/L (46-116); ASPARTATE AMINOTRANSFERASE 109 U/L (15-37); BILIRUBIN,DIRECT 12.5 mg/dL (0.0-0.2); TOTAL PROTEIN, SERUM 7.1 g/dL (6.4-8.2)
[2021-11-27 17:42] LABS: PLATELET COUNT (AUTO) 47 K/uL (150-450)
[2021-11-27 17:44] LABS: COLOR,URINE BROWN (YELLOW)
[2021-11-27 17:45] LABS: SERUM AMMONIA < 10 umol/L (11-32)
[2021-11-27 17:53] LABS: BACTERIA,URINE 3+ /HPF (None Seen); SQUAMOUS EPITHELIAL CELL,UR 0-2 /HPF (None Seen)
--- NOTE | 2021-11-27 18:00 | NUR ---
PT TRANSFER FROM BED 14 AWAKE GENRALIZED JUNDICE AND EDEMA AND ASCITES VS CHEDED NO FEVER
[2021-11-27] MEDS ORDERED: CEFTRIAXONE 1GM BAG (ER ONLY) 1 GM/50 ML PIGGYBACK IV ONE (18:30)
--- NOTE | 2021-11-27 18:47 | NUR ---
MOVE SHEET SUBMITTED.
[2021-11-27] MEDS ORDERED: CEFTRIAXONE 1GM BAG (ER ONLY) 50 ML IV ONE (18:49)
--- NOTE | 2021-11-27 19:04 | NUR ---
COVID SWAB DONE AND SENT TO LAB
--- NOTE | 2021-11-27 19:15 | NUR ---
[facility] CALLED FLIGHT ENGINEER INSTRUCTOR PAGED.
--- NOTE | 2021-11-27 19:31 | NUR ---
HAND OFF BRENDA SORENSON
--- NOTE | 2021-11-27 19:32 | NUR ---
DR. BRUNER ON PHONE CALL WITH DR. GUTIERREZ REGARDING ADMISSION
[2021-11-27 19:38] LABS: LIPASE 350 U/L (73-393)
[2021-11-27] MEDS ORDERED: CIPR500T5 PO (20:01)
[2021-11-27 20:07] LABS: BAND % (MANUAL) 2 % (0.0-5.0); EOSINOPHILS % (MANUAL) 1 % (0-4); LYMPHOCYTES % (MANUAL) 13 % (16-48); MONOCYTES % (MANUAL) 13 % (0-11.0); NEUTROPHILS % (MANUAL) 71 (42-76)
[2021-11-27 21:10] VITALS: BP 135/82
--- NOTE | 2021-11-27 21:10 | NUR ---
Patient discharged to home in stable condition. Written and verbal after care instructions given. Patient verbalizes understanding of instruction.IV removed. Catheter intact and site benign. Pressure and 4x4 applied to site. No bleeding noted.
[2021-12-14] MEDS ORDERED: SPIR25TA6 PO (12:17)
[2021-12-14] MEDS ORDERED: NITR100C15 PO (12:17)
[2021-12-14] MEDS ORDERED: ACID1TAB12 PO (12:17)
[2021-12-14] MEDS ORDERED: Thiamine HCL PO (12:17)
== END 2021-11-27 21:10 | disposition home or self-care (01) ==
LOC: ER 16:10
DX: K70.40 Alcoholic hepatic failure without coma (principal); N39.0 Urinary tract infection, site not specified; D69.6 Thrombocytopenia, unspecified; Z20.822 Contact with and (suspected) exposure to COVID-19; D53.9 Nutritional anemia, unspecified; D68.59 Other primary thrombophilia; F10.20 Alcohol dependence, uncomplicated
CPT/HCPCS: 99291; 96365; 87426; 82140; 85025; 80048; 83690; 80076; 84703; 81001; 36415; 85730; 86850; 85007; J0696; C9803

== ENCOUNTER 2021-12-09 09:19 | Inpatient (IN) | payer BC ==
[~2021-12-09] VITALS: Ht 152.4 cm; Wt 61.2 kg
[~2021-12-09 09:19] MED LIST changes: +CIPR500T5 PO
--- NOTE | 2021-12-09 09:32 | NUR ---
PATIENT BIBRA78 FROM HOME. C/O GENERALIZED WEAKNESS. A/O X3, STABLE ON RA. SLIGHTLY WITHDRAWN DURING INTERACTION. GENERALIZED JAUNDICE SKIN COLOR NOTED PRIMARILY TO FACE. AWAITING TO BE SEEN BY MD. WILL CONTINUE TO MONITOR
--- NOTE | 2021-12-09 09:47 | NUR ---
LABS DRAWN AND SENT TO LAB
--- NOTE | 2021-12-09 09:55 | NUR ---
IV ACCESS STEPHANIEIHED @ [facility] G#20, FLUSHING WELL.
[2021-12-09 09:58] LABS: BASOPHILS % (AUTO) 0.3 % (0.0-2.0); EOSINOPHILS % (AUTO) 0.5 % (0.0-6.0); LYMPHOCYTES # (AUTO) 0.4 K/uL (0.8-4.8); LYMPHOCYTES % (AUTO) 6.5 % (20.0-44.0); MEAN CORPUSCULAR HGB CONC 35 g/dl (31.0-36.0); MEAN CORPUSCULAR VOLUME 103 fL (82-100); MONOCYTES # (AUTO) 0.6 K/uL (0.1-1.30); MONOCYTES % (AUTO) 11.4 % (2.0-12.0); NEUTROPHILS # (AUTO) 4.6 K/uL (1.8-8.9); NEUTROPHILS % (AUTO) 81.3 % (43.0-81.0); PLATELET COUNT (AUTO) 57 K/uL (150-450); RED BLOOD CELL COUNT(AUTO) 1.78 MIL/uL (4.0-5.2); WHITE BLOOD COUNT (AUTO) 5.6 K/uL (4.3-11.0)
[2021-12-09 10:03] LABS: HEMATOCRIT 18 % (33-45); HEMOGLOBIN 6.5 g/dL (11.5-14.8)
--- NOTE | 2021-12-09 10:03 | NUR ---
HEMOGLOBULIN - 6.5, HEMOCRIT - 18, PLATET - 57
[2021-12-09 10:38] LABS: ALANINE AMINOTRANSFERASE 30 U/L (12-78); ALBUMIN 1.5 g/dL (3.4-5.0); ALKALINE PHOSPHATASE 100 U/L (46-116); ASPARTATE AMINOTRANSFERASE 132 U/L (15-37); BILIRUBIN,DIRECT 12.7 mg/dL (0.0-0.2); BILIRUBIN,TOTAL 17.3 mg/dL (0.2-1.0); CALCIUM, SERUM 8.1 mg/dL (8.5-10.1); CHLORIDE 101 mmol/L (98-107); CREATININE 0.7 mg/dL (0.6-1.3); GLUCOSE 109 mg/dL (74-106); SODIUM SERUM 135 mmol/L (136-145); TOTAL PROTEIN, SERUM 6.8 g/dL (6.4-8.2); UREA NITROGEN, BLOOD 9 mg/dL (7-18)
[2021-12-09 10:49] LABS: CARBON DIOXIDE 23 mmol/L (21-32)
[2021-12-09 10:53] LABS: SERUM AMMONIA 11 umol/L (11-32)
[2021-12-09 10:56] LABS: POTASSIUM 2.6 mmol/L (3.5-5.1)
--- NOTE | 2021-12-09 11:11 | NUR ---
MOVE SHEET SUBMITTED.
[2021-12-09] MEDS ORDERED: POTASSIUM CHLORIDE 20 MEQ TAB.PRT.SR PO ONE ×2 (11:17→11:30)
[2021-12-09] MEDS ORDERED: POTASSIUM CL. PREMIX PERIPHER. 100 ML ONE (11:17)
[2021-12-09] MEDS: POTASSIUM CL. PREMIX PERIPHER. 50 ML IV SCH ×2 (11:30→12:30)
--- NOTE | 2021-12-09 11:42 | NUR ---
COVID TEST COLLECTED AND SENT
--- NOTE | 2021-12-09 11:53 | NUR ---
BED 307-2
--- NOTE | 2021-12-09 12:21 | NUR ---
URINE COLLECTED AND SENT
--- NOTE | 2021-12-09 12:37 | NUR ---
CONSENT FOR BLOOD TRANSFUSION SIGNED.
[2021-12-09 12:48] LABS: BAND % (MANUAL) 4 % (0.0-5.0); LYMPHOCYTES % (MANUAL) 8 % (16-48); MONOCYTES % (MANUAL) 1 % (0-11.0); NEUTROPHILS % (MANUAL) 87 (42-76)
--- NOTE | 2021-12-09 13:00 | NUR ---
BLOOD COMPONENT CHECKED AND VERIFIED WITH KRISTA REA RN
--- NOTE | 2021-12-09 13:01 | NUR ---
VITAL SIGNS TAKEN AND RECORDED
[2021-12-09 13:06] LABS: BILIRUBIN,URINE LARGE (NEGATIVE); COLOR,URINE AMBER (YELLOW); LEUKOCYTE ESTERASE ,URINE MODERATE (NEGATIVE); NITRITE, URINE POSITIVE (NEGATIVE); PH,URINE 5.5 (5.0-8.0); PROTEIN,URINE 30 mg/dl (NEGATIVE); UGLUCOSE 250 MG/DL mg/dL (NEGATIVE)
--- NOTE | 2021-12-09 13:13 | NUR ---
REPORT GIVEN TO JOSE ALFREDO FOR [facility]
--- NOTE | 2021-12-09 13:17 | NUR ---
15 MIN AFTER BLOOD TRANSFUSION HAS STARTED, NO ADVERSE REACTION NOTED. VITAL SIGNS STABLE. WILL KEEP ON MONITORING PATIENT.
[2021-12-09 13:26] LABS: BACTERIA,URINE 4+ /HPF (None Seen); RBC,URINE NONE SEEN /HPF (0-2); WBC,URINE TOO NUMEROUS TO COUN /HPF (0-3)
--- NOTE | 2021-12-09 13:48 | NUR ---
TRANSPORTED TO FLOOR, BLOOD TRANSFUSION STARTED. ENDORSED TO RECIEVING NURSE. CONDIOTION: GUARDED.
--- NOTE | 2021-12-09 13:50 | NUR ---
PT TRANSPORTED TO 3W TELE FLOOR WITH ACLS PROTOCOLS IN PLACE, RECIEVED BY DELTA VELIZ AND KIZZY.
[2021-12-09] MEDS ORDERED: ONDANSETRON 4 MG TAB.RAPDIS PO PRN (14:00)
[2021-12-09] MEDS ORDERED: ACETAMINOPHEN 325 MG TABLET PO PRN (14:00)
--- NOTE | 2021-12-09 14:00 | NUR ---
RN NOTE RECEIVED PT FROM EMERGENCY ROOM WITH A BLOOD BAG INFUSING. PATIENT IS A/O X4. PATIENT IS COOPERATIVE. ON ROOM AIR, NO SOB OR RESPIRATORY DISTRESS NOTED. PATIENT IS HOOKED UP TO TELE MONITORING READING SINUS TACHY AT 105. PATIENT IS SEVERELY JAUNDICED AND ABDOMEN IS EXTENDED AND FIRM. NO COMPLAINTS OF PAIN AT THIS TIME. PATIENT IS RESTING COMFORTABLY. SAFETY CHECKS: BED IN LOWEST POSITION, CALL LIGHT IS WITHIN REACH, BED IS LOCKED. WILL CONTINUE TO MONITOR.
[2021-12-09 14:52] VITALS: BP 114/56
--- NOTE | 2021-12-09 15:00 | NUR ---
RN NOTE BLOOD TRANSFUSION STARTED IN ER AND FINISHED UPON ADMISSION TO MED SURG/TELE UNIT. TOTAL INFUSED WAS 300ML. PATIENT RESTING COMFORTABLY.
[2021-12-09] MEDS: CEFTRIAXONE 1 G in IV D5W 50 ML IV SCH (15:25)
[2021-12-09] MEDS: Magnesium 1GM/D5W 100ML PREMIX 100 ML IV SCH ×4 (16:07→20:36)
[2021-12-09] MEDS ORDERED: Thiamine 100 MG in IV D5W 50 ML IV SCH (17:00)
--- NOTE | 2021-12-09 17:23 | NUR ---
LEARNING AND DEVELOPMENT CONSULTANT NOTE PATIENT REFUSED HAVING PICTURE TAKEN AT THIS TIME RELATED TO REDNESS ON PERINEUM.
--- NOTE | 2021-12-09 18:55 | NUR ---
TELE CLOSING NOTE PATIENT AWAKE ON BED A/O X4. ON ROOM AIR, WITH EQUAL AND UNLABORED BREATHING WITH NO SOB OR RESPIRATORY DISTRESS NOTED. PATIENT IS HOOKED UP TO TELE MONITORING READING SINUS TACHY AT 105 BPM. PATIENT IS SEVERELY JAUNDICED AND ABDOMEN IS DISTENDED AND FIRM. NO COMPLAINTS OF PAIN AT THIS TIME. PATIENT IS RESTING COMFORTABLY. SAFETY CHECKS: BED IN LOWEST POSITION, CALL LIGHT IS WITHIN REACH, BED IS LOCKED. ENDORSE PATIENT FOR CONTINUITY OF CARE.
--- NOTE | 2021-12-09 19:30 | NUR ---
TELE/RN OPENING NOTE RECEIVED PATIENT RESTING IN BED. AWAKE, ALERT AND ORIENTED X 4. ABLE TO MAKE NEEDS KNOWN. DENIES PAIN AT THIS TIME. CONTINUES ON ROOM AIR WITH NO S/SX OF RESPIRATORY DISTRESS NOTED. IV ACCESS TO LEFT AC #20G INTACT AND PATENT. CONTINUES ON IV MAGNESIUM REPLACEMENT. CONTINUES ON TELE MONITOR WITH CURRENT READING ST. BODY GUARD IN ROOM. CALL LIGHT WITHIN REACH. ASPIRATION, FALL AND SAFETY PRECAUTIONS MAINTAINED. ALL NEEDS ATTENDED TO AT THIS TIME.
[2021-12-09 20:00] VITALS: BP 106/65
--- NOTE | 2021-12-09 20:30 | NUR ---
TELE/RN NOTE PATIENT WITH C/O ABDOMINAL PAIN SHARP IN NATURE. PAIN SCALE 7/10. ONLY HAS TYLENOL PRN ORDERED. NOTIFIED HOMICIDE INVESTIGATOR STEVEN ENCARNACION WITH NEW ORDER FOR MORPHINE PRN. ORDER INPUTTED AND CARRIED OUT.
[2021-12-09] MEDS: MORPHINE SULFATE INJ 2 MG/ML DISP.SYRIN IV PRN (20:37)
[2021-12-10 05:56] LABS: BASOPHILS % (AUTO) 0.3 % (0.0-2.0); EOSINOPHILS % (AUTO) 1.3 % (0.0-6.0); HEMATOCRIT 22 % (33-45); HEMOGLOBIN 7.7 g/dL (11.5-14.8); LYMPHOCYTES # (AUTO) 0.4 K/uL (0.8-4.8); LYMPHOCYTES % (AUTO) 6.3 % (20.0-44.0); MEAN CORPUSCULAR HGB CONC 35 g/dl (31.0-36.0); MEAN CORPUSCULAR VOLUME 100 fL (82-100); MONOCYTES # (AUTO) 0.8 K/uL (0.1-1.30); MONOCYTES % (AUTO) 13.7 % (2.0-12.0); NEUTROPHILS # (AUTO) 4.4 K/uL (1.8-8.9); NEUTROPHILS % (AUTO) 78.4 % (43.0-81.0); PLATELET COUNT (AUTO) 62 K/uL (150-450); RED BLOOD CELL COUNT(AUTO) 2.19 MIL/uL (4.0-5.2); WHITE BLOOD COUNT (AUTO) 5.6 K/uL (4.3-11.0)
--- NOTE | 2021-12-10 06:20 | NUR ---
MS/RN CLOSING NOTE PATIENT CURRENTLY SLEEPING IN BED. ALERT AND ORIENTED X 4. ABLE TO MAKE NEEDS KNOWN. DENIES PAIN AT THIS TIME. CONTINUES ON ROOM AIR WITH NO S/SX OF RESPIRATORY DISTRESS NOTED. IV ACCESS TO LEFT AC #20G INTACT, PATENT AND SALINE LOCKED. CONTINUES ON SOFT DIET WITH NO S/SX OF ASPIRATION OR PAIN NOTED. CALL LIGHT WITHIN REACH. ASPIRATION, FALL AND SAFETY PRECAUTIONS MAINTAINED. WILL ENDORSE PLAN OF CARE TO ONCOMING SHIFT RN.
[2021-12-10 06:31] LABS: CALCIUM, SERUM 8.1 mg/dL (8.5-10.1); CREATININE 0.6 mg/dL (0.6-1.3); MAGNESIUM 2.5 mg/dL (1.8-2.4); POTASSIUM 3.2 mmol/L (3.5-5.1)
[2021-12-10 06:45] LABS: PHOSPHORUS 0.9 mg/dL (2.5-4.9)
--- NOTE | 2021-12-10 06:55 | NUR ---
MS/RN NOTE RECEIVED CRITICAL LAB VALUE PHOSPHORUS 0.9. NOTIFIED SOCIAL STUDIES DEPARTMENT CHAIR STEVEN ENCARNACION. AWAITING RESPONSE.
--- NOTE | 2021-12-10 07:30 | NUR ---
RN MS NOTES PT IN BED, AWAKE, ALERT AND ORIENTED, DENIES PAIN THIS TIME, NOT IN DISTRESS, ABLE TO WALK TO THE BATHROOM WITH MINIMAL ASSISTANCE, PT FEELS WEAK, BEDSIDE COMMODE PROVIDED, KEPT COMFORTABLE, CALL LIGHT WITHIN REACH.
[2021-12-10 08:00] VITALS: BP 113/66
--- NOTE | 2021-12-10 08:58 | NUR ---
WOUND CARE CONSULT: PT PRESENTS WITH SLIGHT REDNESS TO GROIN FOLDS/PERINEUM, PRESENT ON ADMISSION. Z GUARD IN USE. DISCUSSED SKIN PROTECTION WITH NURSING STAFF. MD IN AGREEMENT WITH PLAN OF CARE.
[2021-12-10] MEDS: FOLIC ACID 1 MG TABLET PO SCH (09:03)
[2021-12-10] MEDS: THIAMINE HCL 100 MG TABLET PO SCH (09:03)
[2021-12-10] MEDS: PANTOPRAZOLE 40 MG TABLET.DR PO SCH (09:03)
[2021-12-10] MEDS: SPIRONOLACTONE 25 MG TABLET PO SCH (09:04)
[2021-12-10] MEDS: POTASSIUM CHLORIDE 20 MEQ TAB.PRT.SR PO SCH ×2 (09:04→10:24)
[2021-12-10] MEDS: Z GUARD REMEDY 4 OZ OINT TP PRN ×2 (09:07→09:08)
[2021-12-10] MEDS: Z GUARD REMEDY 4 OZ OINT TP SCH (09:17)
[2021-12-10] MEDS: MORPHINE SULFATE INJ 2 MG/ML DISP.SYRIN IV PRN (11:11)
--- NOTE | 2021-12-10 11:57 | NUR ---
RN MS NOTES DR. CLARK INFORMED OF PT'S LATEST LAB RESULTS, ORDERED TO GIVE SODIUM PHOSPHATE IV, NOTED AND CARRIED OUT.
[2021-12-10] MEDS ORDERED: Sodium Phosphate 15 MMOL in IV NS 0.9% 250 ML IV ONE (12:00)
--- NOTE | 2021-12-10 12:05 | NUR ---
SS consult requested for ETOH dependence. Pt. is a 31-year-old female who was admitted to [facility] due to ETOH dependence. Upon SS consult, pt. is alert and oriented x3 (place, self and situation). Pt. presents with a depressed mood and congruent affect. Pt. appears unkempt and provides appropriate eye contact. Pt. appears guarded throughout the interview. Pt. states she lives at [address] [place] [address]. Pt. stated her primary contact center professional was Souleymane ([phone]) who was sleeping at bedside. Pt. stated that Souleymane was her security. resource management planner explored pt.s substance use history. Pt. denied substance use. Pt. denied alcohol use. Pt. stated she was not interested in any resources. Pt. asked for [employer] business card and estate planner gave it to her. resource management planner explored pt.s psychiatric history. Pt. stated she does not believe in mental health illness. Pt. denied psychiatric diagnosis. Pt. denied suicidal and homicidal ideation. Pt. denied visual and auditory hallucinations. Plan: Upon discharge, pt will return to [address] [place] [address]. resource management planner will remain available as needed.
[2021-12-10] MEDS: prednisoLONE 5 MG/5 ML UDC PO SCH (12:29)
[2021-12-10 15:45] LABS: CALCIUM, SERUM 8.1 mg/dL (8.5-10.1); CREATININE 0.6 mg/dL (0.6-1.3); MAGNESIUM 2.2 mg/dL (1.8-2.4); POTASSIUM 3.4 mmol/L (3.5-5.1)
[2021-12-10 16:00] VITALS: BP 110/71
[2021-12-10 16:37] LABS: THYROID STIMULATING HORMONE 4.177 uIU/mL (0.358-3.74); URIC ACID 2.7 mg/dL (2.6-7.2)
[2021-12-10] MEDS: CEFTRIAXONE 1 G in IV D5W 50 ML IV SCH (17:29)
[2021-12-10] MEDS: ALBUMIN 25% 25 GM in PREMIX 1 EA IV SCH ×2 (19:02→23:28)
[2021-12-10] MEDS: ONDANSETRON HCL/PF 4 MG/2 ML VIAL IVP PRN (19:02)
--- NOTE | 2021-12-10 19:11 | NUR ---
RN MS CLOSING NOTE Pt A/O X4, no c/o pain or discomfort at this time, no s/s of distress noted. Pt left in bed, in stable condition with call light within reach, and bed in low position. All afternoon meds administered per MD orders. Will endorse pt's care to night oncoming nurse.
--- NOTE | 2021-12-10 19:20 | NUR ---
MS/RN OPENING NOTE RECEIVED PATIENT RESTING IN BED. AWAKE, ALERT AND ORIENTED X 4. ABLE TO MAKE NEEDS KNOWN. DENIES PAIN AT THIS TIME. CONTINUES ON ROOM AIR WITH NO S/SX OF RESPIRATORY DISTRESS NOTED. IV ACCESS TO LEFT AC #20G INTACT, PATENT AND SALINE LOCKED. CONTINUES ON SOFT DIET WITH NO S/SX OF ASPIRATION OR PAIN NOTED. CALL LIGHT WITHIN REACH. ASPIRATION, FALL AND SAFETY PRECAUTIONS MAINTAINED. ALL NEEDS ATTENDED TO AT THIS TIME.
[2021-12-10 20:00] VITALS: BP 108/56
[2021-12-11] VITALS (9 sets, daily range): BP systolic 94–111; BP diastolic 49–69
[2021-12-11] MEDS: MORPHINE SULFATE INJ 2 MG/ML DISP.SYRIN IV PRN (00:19)
[2021-12-11] MEDS: ALBUMIN 25% 25 GM in PREMIX 1 EA IV SCH ×2 (05:31→12:32)
[2021-12-11 06:03] LABS: BASOPHILS % (AUTO) 0.6 % (0.0-2.0); EOSINOPHILS % (AUTO) 0.2 % (0.0-6.0); LYMPHOCYTES # (AUTO) 0.3 K/uL (0.8-4.8); LYMPHOCYTES % (AUTO) 7.3 % (20.0-44.0); MEAN CORPUSCULAR HGB CONC 35 g/dl (31.0-36.0); MEAN CORPUSCULAR VOLUME 100 fL (82-100); MONOCYTES # (AUTO) 0.4 K/uL (0.1-1.30); NEUTROPHILS # (AUTO) 3.4 K/uL (1.8-8.9); NEUTROPHILS % (AUTO) 81.9 % (43.0-81.0); PLATELET COUNT (AUTO) 63 K/uL (150-450); WHITE BLOOD COUNT (AUTO) 4.1 K/uL (4.3-11.0)
--- NOTE | 2021-12-11 06:10 | NUR ---
MS/RN CLOSING NOTE PATIENT CURRENTLY RESTING IN BED. AWAKE, ALERT AND ORIENTED X 4. ABLE TO MAKE NEEDS KNOWN. DENIES PAIN AT THIS TIME. CONTINUES ON ROOM AIR WITH NO S/SX OF RESPIRATORY DISTRESS NOTED. IV ACCESS TO LEFT AC #20G INTACT, PATENT AND SALINE LOCKED. CONTINUES ON SOFT DIET WITH NO S/SX OF ASPIRATION OR PAIN NOTED. CALL LIGHT WITHIN REACH. ASPIRATION, FALL AND SAFETY PRECAUTIONS MAINTAINED. WILL ENDORSE PLAN OF CARE TO ONCOMING SHIFT RN.
[2021-12-11 06:26] LABS: HEMATOCRIT 19 % (33-45); HEMOGLOBIN 6.6 g/dL (11.5-14.8); RED BLOOD CELL COUNT(AUTO) 1.88 MIL/uL (4.0-5.2)
--- NOTE | 2021-12-11 06:40 | NUR ---
MS/RN NOTE RECEIVED CALL FROM LAB WITH CRITICAL LAB VALUES HGB 6.6 AND HCT 19. NO S/SX OF ACTIVE BLEEDING NOTED. NOTIFIED ELIGIBILITY CONSULTANT MD ENCARNACION. AWAITING RESPONSE.
[2021-12-11 06:58] LABS: ALBUMIN 2.1 g/dL (3.4-5.0); BILIRUBIN,TOTAL 15.8 mg/dL (0.2-1.0); CREATININE 0.7 mg/dL (0.6-1.3); PHOSPHORUS 2.2 mg/dL (2.5-4.9); POTASSIUM 3.7 mmol/L (3.5-5.1); TOTAL PROTEIN, SERUM 6.3 g/dL (6.4-8.2)
[2021-12-11] MEDS ORDERED: POTASSIUM PHOSPHATE MM 15 MMOL in IV NS 0.9% 250 ML IV SCH (08:30)
[2021-12-11] MEDS: PANTOPRAZOLE 40 MG TABLET.DR PO SCH (08:31)
[2021-12-11] MEDS: FOLIC ACID 1 MG TABLET PO SCH (08:32)
[2021-12-11] MEDS: prednisoLONE 5 MG/5 ML UDC PO SCH (08:32)
[2021-12-11] MEDS: SPIRONOLACTONE 25 MG TABLET PO SCH (08:32)
[2021-12-11] MEDS: THIAMINE HCL 100 MG TABLET PO SCH (08:32)
[2021-12-11] MEDS: Z GUARD REMEDY 4 OZ OINT TP SCH (08:33)
[2021-12-11] MEDS ORDERED: POTASSIUM PHOSPHATE MM 7.5 MMOL in IV NS 0.9% 100 ML IV SCH (09:00)
[2021-12-11 09:39] LABS: BAND % (MANUAL) 3 % (0.0-5.0); LYMPHOCYTES % (MANUAL) 8 % (16-48); MONOCYTES % (MANUAL) 5 % (0-11.0); NEUTROPHILS % (MANUAL) 84 (42-76)
[2021-12-11] MEDS: CEFTRIAXONE 1 G in IV D5W 50 ML IV SCH (14:03)
--- NOTE | 2021-12-11 18:56 | NUR ---
RN CLOSING NOTE PATIENT A/O X4. RECEIVED LYING IN BED, AWAKE. TOLERATED ALL MEDICATIONS ON SHIFT. PARACENTESIS PERFORMED @ BEDSIDE ON SHIFT. 4550ML OF FLUID TAKEN OFF AND DISCARDED. TOLERATED PROCEDURE WELL. IV ACCESS TO LAC INTACT AND PATENT. RECEIVED 1 UNIT OF PRBC ON SHIFT. STARTED @ 1515, COMPLETED @ 1840. TOLERATED WELL WITH NO S/SX OF ADVERSE REACTION. VITALS STABLE THROUGHOUT TRANSFUSION. NO SOB OR RESPIRATORY DISTRESS OBSERVED OR REPORTED. 1UNIT OF PLASMA DUE, HOWEVER REQUIRES 45 MINUTES OF THAW TIME PRIOR TO INFUSION. WILL ENDORSE TO ONCOMING SHIFT. DIET ADVANCED FROM NPO TO SOFT DIET ORDER. TOLERATED MEALS WELL. SAFETY MEASURES REMAIN IN PLACE WITH BED IN LOWEST POSITION AND LOCKED. SIDERAIL UP X2. CALL LIGHT WITHIN REACH.
--- NOTE | 2021-12-11 19:30 | NUR ---
MS RN OPENING NOTE PATIENT AWAKE IN BED, ALERT/ORIENTED X 4, PT ABLE TO MAKE NEEDS KNOWN. PATIENT STABLE ON RA, NO S/S OF DISTRESS OR SOB NOTED, BREATHING EVEN AND UNLABORED. LAC #20G INTACT AND SALINE LOCKED. PATIENT REQUESTING EYE DROPS FOR DRY EYES, WILL NOTIFY MD. SAFETY MEASURES IN PLACE: CALL LIGHT WITHIN REACH, SIDE RAILS UP X 2, BED LOCKED IN LOWEST POSITION, BED ALARM ON. WILL CONTINUE TO MONITOR PATIENT
[2021-12-11] MEDS ORDERED: POLYVINYL ALCOHOL 15 ML BOTTLE EACHEYE PRN (20:30)
[2021-12-11] MEDS: NITROFURANTOIN/MONOHYDRATE MACROCRYSTALS 100 MG CAPSULE PO SCH (20:38)
[2021-12-12] MEDS: ONDANSETRON HCL/PF 4 MG/2 ML VIAL IVP PRN (04:19)
--- NOTE | 2021-12-12 07:02 | NUR ---
MS RN CLOSING NOTE PATIENT SLEEPING IN BED, ALERT/ORIENTED X 2-3, PT ABLE TO MAKE NEEDS KNOWN. PATIENT STABLE ON RA, NO S/S OF DISTRESS OR SOB NOTED, BREATHING EVEN AND UNLABORED. LEFT WRIST #22G INTACT AND SALINE LOCKED. PATIENT RECEIVED 1 BAG OF PLASMA THIS SHIFT, TOLERATED WELL, VITAL SIGNS WNL. MEDICATIONS GIVEN ORDERED, PT NEEDS MET THROUGHOUT SHIFT. SAFETY MEASURES IN PLACE: CALL LIGHT WITHIN REACH, SIDE RAILS UP X 2, BED LOCKED IN LOWEST POSITION, BED ALARM ON. WILL ENDORSE TO DAYSHIFT NURSE FOR CONTINUITY OF CARE
[2021-12-12 09:24] LABS: CALCIUM, SERUM 8.2 mg/dL (8.5-10.1); CREATININE 0.5 mg/dL (0.6-1.3); MAGNESIUM 1.8 mg/dL (1.8-2.4); PHOSPHORUS 1.3 mg/dL (2.5-4.9); POTASSIUM 3.4 mmol/L (3.5-5.1)
[2021-12-12 09:29] LABS: BASOPHILS % (AUTO) 0.9 % (0.0-2.0); EOSINOPHILS % (AUTO) 0.4 % (0.0-6.0); HEMATOCRIT 23 % (33-45); HEMOGLOBIN 7.7 g/dL (11.5-14.8); LYMPHOCYTES # (AUTO) 0.9 K/uL (0.8-4.8); LYMPHOCYTES % (AUTO) 19.6 % (20.0-44.0); MEAN CORPUSCULAR HGB CONC 34 g/dl (31.0-36.0); MEAN CORPUSCULAR VOLUME 98 fL (82-100); MONOCYTES # (AUTO) 0.7 K/uL (0.1-1.30); MONOCYTES % (AUTO) 15.6 % (2.0-12.0); NEUTROPHILS # (AUTO) 2.9 K/uL (1.8-8.9); NEUTROPHILS % (AUTO) 63.5 % (43.0-81.0); PLATELET COUNT (AUTO) 76 K/uL (150-450); RED BLOOD CELL COUNT(AUTO) 2.31 MIL/uL (4.0-5.2); WHITE BLOOD COUNT (AUTO) 4.5 K/uL (4.3-11.0)
[2021-12-12] MEDS: NITROFURANTOIN/MONOHYDRATE MACROCRYSTALS 100 MG CAPSULE PO SCH ×2 (09:31→21:30)
[2021-12-12] MEDS: PANTOPRAZOLE 40 MG TABLET.DR PO SCH (09:31)
[2021-12-12] MEDS: THIAMINE HCL 100 MG TABLET PO SCH (09:31)
[2021-12-12] MEDS: SPIRONOLACTONE 25 MG TABLET PO SCH (09:32)
[2021-12-12] MEDS: FOLIC ACID 1 MG TABLET PO SCH (09:32)
[2021-12-12] MEDS: Z GUARD REMEDY 4 OZ OINT TP PRN (09:40)
[2021-12-12] MEDS: prednisoLONE 5 MG/5 ML UDC PO SCH (09:40)
[2021-12-12] MEDS: Z GUARD REMEDY 4 OZ OINT TP SCH (09:40)
[2021-12-12] MEDS ORDERED: Sodium Phosphate 15 MMOL in IV NS 0.9% 245 ML IV SCH (15:30)
[2021-12-12 16:00] VITALS: BP 106/46
[2021-12-12 18:31] LABS: BAND % (MANUAL) 1 % (0.0-5.0); LYMPHOCYTES % (MANUAL) 26 % (16-48); MONOCYTES % (MANUAL) 12 % (0-11.0); NEUTROPHILS % (MANUAL) 61 (42-76)
--- NOTE | 2021-12-12 18:42 | NUR ---
RN CLOSING NOTE PATIENT REMAINS A/O X4 AND ABLE TO VERBALIZE ALL NEEDS. RECEIVED LYING IN BED, AWAKE. TOLERATED ALL MEDICATIONS ON SHIFT. IV ACCESS TO L-WRIST REMAINS INTACT AND PATENT. SCHEDULED SODIUM PHOSPHATE CURRENTLY RUNNING @ 63.3ML/HR. TOLERATING WELL. PATIENT CONTINUES TO HAVE MOOD SWINGS AND NEGATIVE BEHAVIORAL EPISODES THROUGHOUT SHIFT. REPORTED BY CHANGE AGENT @ 1715 THAT PATIENT THREW HER DINNER TRAY BECAUSE SHE DID NOT LIKE HER DINNER. UPON QUESTIONING, PATIENT HAD NO REAL EXPLANATION TO WHY SHE WAS UPSET, OTHER THAN THE FOOD IS NASTY AND HER TOWELS WERE NOT DELIVERED TO HER IN "TIMELY FASHION". PATIENT WAS ADVISED THAT THE CHANGE AGENT WAS IN PROCESS OF GETTING TOWELS WHEN SHE WALKED OUT OF ROOM. PATIENT HAVING EPISODES OF FORGETFULNESS FOLLOWED BY CONSTANT REMINDER AND REDIRECTION. NO SOB OR RESPIRATORY DISTRESS OBSERVED OR REPORTED. SAFETY MEASURES REMAIN IN PLACE WITH BED IN LOWEST POSITION AND LOCKED. SIDERAIL UP X2. CALL LIGHT WITHIN REACH. Addendum: 12/12/21 at 1902 by RENEA ARNDT RN RN CLOSING NOTE PATIENT REMAINS A/O X 2-3 AND ABLE TO VERBALIZE ALL NEEDS. RECEIVED LYING IN BED, AWAKE. TOLERATED ALL MEDICATIONS ON SHIFT. IV ACCESS TO L-WRIST REMAINS INTACT AND PATENT. SCHEDULED SODIUM PHOSPHATE CURRENTLY RUNNING @ 63.3ML/HR. TOLERATING WELL. PATIENT CONTINUES TO HAVE MOOD SWINGS AND NEGATIVE BEHAVIORAL EPISODES THROUGHOUT SHIFT. REPORTED BY CHANGE AGENT @ 1715 THAT PATIENT THREW HER DINNER TRAY BECAUSE SHE DID NOT LIKE HER DINNER. UPON QUESTIONING, PATIENT HAD NO REAL EXPLANATION TO WHY SHE WAS UPSET, OTHER THAN THE FOOD IS NASTY AND HER TOWELS WERE NOT DELIVERED TO HER IN "TIMELY FASHION". PATIENT WAS ADVISED THAT THE CHANGE AGENT WAS IN PROCESS OF GETTING TOWELS WHEN SHE WALKED OUT OF ROOM. PATIENT HAVING EPISODES OF FORGETFULNESS FOLLOWED BY CONSTANT REMINDER AND REDIRECTION. NO SOB OR RESPIRATORY DISTRESS OBSERVED OR REPORTED. SAFETY MEASURES REMAIN IN PLACE WITH BED IN LOWEST POSITION AND LOCKED. SIDERAIL UP X2. CALL LIGHT WITHIN REACH.
[2021-12-12 20:00] VITALS: BP 107/63
--- NOTE | 2021-12-12 20:20 | NUR ---
MS RN OPENING NOTE PATIENT AWAKE IN BED, ALERT/ORIENTED X 2-3, PT ABLE TO MAKE NEEDS KNOWN. PATIENT STABLE ON RA, NO S/S OF DISTRESS OR SOB NOTED, BREATHING EVEN AND UNLABORED. LEFT WRIST #22G INTACT AND INFUSING SODIUM PHOSPHATE @ 63.333 ML/HR. PATIENT FOUND INCONTINENT FOR URINE AND STOOL, HYGIENE CARE PROVIDED. SAFETY MEASURES IN PLACE: CALL LIGHT WITHIN REACH, SIDE RAILS UP X 2, BED LOCKED IN LOWEST POSITION, BED ALARM ON. WILL CONTINUE TO MONITOR PATIENT
--- NOTE | 2021-12-12 23:43 | NUR ---
MS RN NOTE PATIENT WAS YELLING IN ROOM FOR HELP, UPON ENTERING PT STATED SHE FELT CLAUSTROPHOBIC AND TO REMOVE ALL BLANKETS, REMOVED BLANKETS REQUESTED AND TURNED ON HEATER PER PATIENT REQUEST. LESS THAN 5 MINUTES LATER PATIENT BEGAN YELLING AGAIN FOR HELP, UPON ENTERING PATIENT WAS RUDE AND YELLING TO PUT BLANKETS BACK ON, EXPLAINED TO PATIENT THAT THEY WERE REMOVED PER HER REQUEST, PATIENT STATED "CAN'T YOU SEE I'M FUCKING COLD!" PLACED ALL BLANKETS BACK ON PATIENT PER HER REQUEST
--- NOTE | 2021-12-13 07:05 | NUR ---
MS RN CLOSING NOTE PATIENT SLEEPING IN BED, ALERT/ORIENTED X 3, PT ABLE TO MAKE NEEDS KNOWN. PATIENT STABLE ON RA, NO S/S OF DISTRESS OR SOB NOTED, BREATHING EVEN AND UNLABORED. LEFT WRIST #22G INTACT AND SALINE LOCKED. MEDICATIONS GIVEN ORDERED, PT NEEDS MET THROUGHOUT SHIFT. PATIENT NOTED WITH 3 EPISODES OF MALODOROUS LIQUID STOOL, OBTAINED ORDER FOR C. DIFF HOWEVER, PATIENT WAS INCONTINENT AND UNABLE TO COLLECT STOOL SAMPLE, EXPLAINED TO PATIENT TO CONTACT PERSONNEL WHEN URGE TO HAVE BM TO USE BSC. PATIENT WAS RUDE AND DEMANDING TO STAFF AT TIMES DURING SHIFT. SAFETY MEASURES IN PLACE: CALL LIGHT WITHIN REACH, SIDE RAILS UP X 2, BED LOCKED IN LOWEST POSITION, BED ALARM ON. WILL ENDORSE TO DAYSHIFT NURSE FOR CONTINUITY OF CARE
[2021-12-13 07:29] LABS: BASOPHILS % (AUTO) 0.3 % (0.0-2.0); HEMATOCRIT 24 % (33-45); HEMOGLOBIN 8.3 g/dL (11.5-14.8); LYMPHOCYTES # (AUTO) 0.5 K/uL (0.8-4.8); LYMPHOCYTES % (AUTO) 9.3 % (20.0-44.0); MEAN CORPUSCULAR HGB CONC 35 g/dl (31.0-36.0); MEAN CORPUSCULAR VOLUME 97 fL (82-100); MONOCYTES # (AUTO) 1.4 K/uL (0.1-1.30); MONOCYTES % (AUTO) 26.1 % (2.0-12.0); NEUTROPHILS # (AUTO) 3.5 K/uL (1.8-8.9); NEUTROPHILS % (AUTO) 63.3 % (43.0-81.0); PLATELET COUNT (AUTO) 89 K/uL (150-450); RED BLOOD CELL COUNT(AUTO) 2.46 MIL/uL (4.0-5.2); WHITE BLOOD COUNT (AUTO) 5.5 K/uL (4.3-11.0)
[2021-12-13 07:45] LABS: ALBUMIN 2.1 g/dL (3.4-5.0); BILIRUBIN,TOTAL 13.4 mg/dL (0.2-1.0); CALCIUM, SERUM 8.4 mg/dL (8.5-10.1); CREATININE 0.6 mg/dL (0.6-1.3); PHOSPHORUS 2.2 mg/dL (2.5-4.9); POTASSIUM 3.5 mmol/L (3.5-5.1)
[2021-12-13 08:00] VITALS: BP 96/55
[2021-12-13] MEDS: PANTOPRAZOLE 40 MG TABLET.DR PO SCH (08:00)
--- NOTE | 2021-12-13 08:18 | NUR ---
MS RN OPENING NOTE PATIENT AWAKE IN BED, ALERT/ORIENTED X 4, PT ABLE TO MAKE NEEDS KNOWN. PATIENT STABLE ON RA, NO S/S OF DISTRESS OR SOB NOTED, BREATHING EVEN AND UNLABORED. LAC #20G INTACT. SAFETY MEASURES IN PLACE: CALL LIGHT WITHIN REACH, SIDE RAILS UP X 2, BED LOCKED IN LOWEST POSITION, BED ALARM ON. WILL CONTINUE TO MONITOR PATIENT.
[2021-12-13] MEDS: THIAMINE HCL 100 MG TABLET PO SCH (08:57)
[2021-12-13] MEDS: SPIRONOLACTONE 25 MG TABLET PO SCH (08:57)
[2021-12-13] MEDS: FOLIC ACID 1 MG TABLET PO SCH (08:57)
[2021-12-13] MEDS: NITROFURANTOIN/MONOHYDRATE MACROCRYSTALS 100 MG CAPSULE PO SCH ×2 (08:57→20:28)
[2021-12-13] MEDS: prednisoLONE 5 MG/5 ML UDC PO SCH (08:58)
[2021-12-13] MEDS: Z GUARD REMEDY 4 OZ OINT TP PRN (09:02)
[2021-12-13 09:51] LABS: BAND % (MANUAL) 1 % (0.0-5.0); EOSINOPHILS % (MANUAL) 1 % (0-4); LYMPHOCYTES % (MANUAL) 10 % (16-48); MONOCYTES % (MANUAL) 11 % (0-11.0); NEUTROPHILS % (MANUAL) 77 (42-76)
[2021-12-13] MEDS: Z GUARD REMEDY 4 OZ OINT TP SCH (11:13)
--- NOTE | 2021-12-13 13:15 | NUR ---
RN MS NOTES PT SEEN AND EXAMINED BY DR. HERRING, PLAN OF CARE DISCUSSED WITH PT, KEPT PT CLEAN AND DRY, NEEDS ATTENDED.
[2021-12-13] MEDS ORDERED: Sodium Phosphate 15 MMOL in IV NS 0.9% 245 ML IV SCH (15:30)
--- NOTE | 2021-12-13 19:27 | NUR ---
MS/RN CLOSING NOTE PATIENT CURRENTLY RESTING IN BED. AWAKE, ALERT AND ORIENTED X 4. ABLE TO MAKE NEEDS KNOWN. DENIES PAIN AT THIS TIME. NO S/SX OF RESPIRATORY DISTRESS NOTED. IV ACCESS TO LEFT AC #20G INTACT, PATENT. CONTINUES ON SOFT DIET WITH NO S/SX OF ASPIRATION. PT HAD MULTIPLE EPISODES OF DIARRHEA THROUGHOUT SHIFT. ANTI DIARRHEAL MED ORDER BY MD. CALL LIGHT WITHIN REACH. ASPIRATION, FALL AND SAFETY PRECAUTIONS MAINTAINED. WILL ENDORSE PLAN OF CARE TO ONCOMING SHIFT RN.
--- NOTE | 2021-12-13 19:48 | NUR ---
MS/RN OPENING NOTE PATIENT CURRENTLY RESTING IN BED. AWAKE, ALERT AND ORIENTED X 4. ABLE TO MAKE NEEDS KNOWN. DENIES PAIN AT THIS TIME. NO S/SX OF RESPIRATORY DISTRESS NOTED. IV ACCESS TO LEFT AC #20G INTACT, PATENT. CONTINUES ON SOFT DIET WITH NO S/SX OF ASPIRATION. CALL LIGHT WITHIN REACH. ASPIRATION, FALL AND SAFETY PRECAUTIONS MAINTAINED.
[2021-12-13 20:00] VITALS: BP 102/58
[2021-12-13] MEDS: ACIDOPHILUS/BULGARICUS 1 EACH TAB.CHEW PO SCH (20:28)
[2021-12-14] MEDS: MORPHINE SULFATE INJ 2 MG/ML DISP.SYRIN IV PRN (02:01)
--- NOTE | 2021-12-14 02:09 | NUR ---
MS RN NOTES prn morphine given for abdominal and back discomfort 11/26 tolerated well.
--- NOTE | 2021-12-14 06:37 | NUR ---
MS RN CLOSING NOTE PATIENT SLEEPING IN BED, ALERT/ORIENTED X 3, PT ABLE TO MAKE NEEDS KNOWN. PATIENT STABLE ON RA, NO S/S OF DISTRESS OR SOB NOTED, BREATHING EVEN AND UNLABORED. LEFT WRIST #22G INTACT AND SALINE LOCKED. MEDICATIONS GIVEN ORDERED, PT NEEDS MET THROUGHOUT SHIFT. PT CONTINUOUS TO YELL WHEN SHE NEEDS ASSISTANCE DESPITE REMINDER OF USING THE CALL LIGHT CALLING NURSING STAFF DEROGATORY NAMES WHEN SHE IS NOT ATTENDED QUICKLY SHE WOULD LIKE.SAFETY MEASURES IN PLACE: CALL LIGHT WITHIN REACH, SIDE RAILS UP X 2, BED LOCKED IN LOWEST POSITION, BED ALARM ON. WILL ENDORSE TO DAYSHIFT NURSE FOR CONTINUITY OF CARE
[2021-12-14 07:15] LABS: BASOPHILS % (AUTO) 0.2 % (0.0-2.0); EOSINOPHILS % (AUTO) 0.1 % (0.0-6.0); HEMATOCRIT 24 % (33-45); HEMOGLOBIN 8.2 g/dL (11.5-14.8); LYMPHOCYTES # (AUTO) 0.3 K/uL (0.8-4.8); LYMPHOCYTES % (AUTO) 5.1 % (20.0-44.0); MEAN CORPUSCULAR HGB CONC 34 g/dl (31.0-36.0); MEAN CORPUSCULAR VOLUME 98 fL (82-100); MONOCYTES # (AUTO) 1.1 K/uL (0.1-1.30); MONOCYTES % (AUTO) 16.2 % (2.0-12.0); NEUTROPHILS # (AUTO) 5.4 K/uL (1.8-8.9); NEUTROPHILS % (AUTO) 78.4 % (43.0-81.0); PLATELET COUNT (AUTO) 92 K/uL (150-450); RED BLOOD CELL COUNT(AUTO) 2.47 MIL/uL (4.0-5.2); WHITE BLOOD COUNT (AUTO) 6.9 K/uL (4.3-11.0)
--- NOTE | 2021-12-14 07:20 | NUR ---
RN OPENING NOTES RECEIVED PATIENT RESTING IN BED, EASILY AROUSED. NO SIGNS OF ACUTE DISTRESS NOTED. ON ROOM AIR, NO SOB NOTED, BREATHING EVEN AND UNLABORED. WITH IV ACCESS ON LEFT WRIST #22G, INTACT AND PATENT, SALINE LOCKED. NOTED PATIENT JAUNDICED, WITH ABDOMINAL DISTENTION R/T ASCITES. COMFORT AND SAFETY MEASURE PROVIDED. BED IN LOWEST AND LOCKED POSITION, SIDE RAILS UP, CALL LIGHT PLACED WITHIN EASY REACH. WILL CONTINUE TO MONITOR PATIENT.
[2021-12-14 07:46] LABS: ALBUMIN 2.1 g/dL (3.4-5.0); BILIRUBIN,TOTAL 13.1 mg/dL (0.2-1.0); CALCIUM, SERUM 8.3 mg/dL (8.5-10.1); CREATININE 0.5 mg/dL (0.6-1.3); POTASSIUM 3.9 mmol/L (3.5-5.1); TOTAL PROTEIN, SERUM 6.1 g/dL (6.4-8.2)
[2021-12-14] MEDS: SPIRONOLACTONE 25 MG TABLET PO SCH (09:00)
[2021-12-14] MEDS: PANTOPRAZOLE 40 MG TABLET.DR PO SCH (09:19)
[2021-12-14] MEDS: THIAMINE HCL 100 MG TABLET PO SCH (09:20)
[2021-12-14] MEDS: ACIDOPHILUS/BULGARICUS 1 EACH TAB.CHEW PO SCH ×3 (09:20→16:16)
[2021-12-14] MEDS: NITROFURANTOIN/MONOHYDRATE MACROCRYSTALS 100 MG CAPSULE PO SCH (09:20)
[2021-12-14] MEDS: FOLIC ACID 1 MG TABLET PO SCH (09:20)
[2021-12-14] MEDS: Z GUARD REMEDY 4 OZ OINT TP SCH (09:26)
[2021-12-14] MEDS: prednisoLONE 5 MG/5 ML UDC PO SCH (09:27)
[2021-12-14] MEDS ORDERED: ACID1TAB12 PO (12:17)
[2021-12-14] MEDS ORDERED: NITR100C15 PO (12:17)
[2021-12-14] MEDS ORDERED: Thiamine HCL PO (12:17)
[2021-12-14] MEDS ORDERED: SPIR25TA6 PO (12:17)
[2021-12-14 12:39] LABS: BAND % (MANUAL) 1 % (0.0-5.0); LYMPHOCYTES % (MANUAL) 12 % (16-48); MONOCYTES % (MANUAL) 6 % (0-11.0); NEUTROPHILS % (MANUAL) 81 (42-76)
--- NOTE | 2021-12-14 18:58 | NUR ---
EEO OFFICER NOTE PATIENT DISCHARGED HOME IN STABLE CONDITION. PATIENT REMAINS A/O X4, VERBALLY RESPONSIVE. NO SIGNS OF ACUTE DISTRESS NOTED. STABLE ON ROOM AIR, BREATHING EVEN AND UNLABORED. IV ACCESS ON LEFT WRIST REMOVED, NO BLEEDING NOTED, PRESSURE DRESSING APPLIED TO SITE. ARM NAMEBAND REMOVED. PATIENT REFUSED PHOTOS OF SKIN ISSUE TO BE TAKEN. ALL BELONGINGS ACCOUNTED FOR, FORM SIGNED BY PATIENT. EXIT CARE FOLDER GIVEN TO PATIENT, DISCHARGE INSTRUCTIONS PROVIDED WITH VERBALIZATION OF UNDERSTANDING. PATIENT LEFT UNIT @1855, FREELANCE TRANSLATOR NÉSTOR ACCOMPANIED PATIENT TO THE LOBBY VIA W/C. PATIENT PICKED UP BY DILAN PINEDA VIA PRIVATE CAR. CN AWARE OF DISCHARGE.
== END 2021-12-14 19:00 | disposition home or self-care (01) | DRG 441 ==
LOC: ER 09:32 → TELE 12:04 → MED 20:16
PROVIDERS: ADMIT Nurse Practitioner Acute Care; ATTEND Nurse Practitioner Acute Care
PROC: 30233N1 Transfusion of Nonautologous Red Blood Cells into Peripheral Vein, Percutaneous Approach (ICD-10-PCS; principal; 2021-12-09)
PROC: 0W9G3ZZ Drainage of Peritoneal Cavity, Percutaneous Approach (ICD-10-PCS; 2021-12-11)
PROC: 30233K1 Transfusion of Nonautologous Frozen Plasma into Peripheral Vein, Percutaneous Approach (ICD-10-PCS; 2021-12-11)
DX: K76.6 Portal hypertension (principal); E43 Unspecified severe protein-calorie malnutrition; D62 Acute posthemorrhagic anemia; E87.1 Hypo-osmolality and hyponatremia; N39.0 Urinary tract infection, site not specified; I85.10 Secondary esophageal varices without bleeding; D68.9 Coagulation defect, unspecified; E87.2 Acidosis; Z16.12 Extended spectrum beta lactamase (ESBL) resistance; K92.2 Gastrointestinal hemorrhage, unspecified; K70.31 Alcoholic cirrhosis of liver with ascites; E83.42 Hypomagnesemia; E83.39 Other disorders of phosphorus metabolism; E87.6 Hypokalemia; D69.6 Thrombocytopenia, unspecified; E80.6 Other disorders of bilirubin metabolism; E88.09 Other disorders of plasma-protein metabolism, not elsewhere classified; R74.01 Elevation of levels of liver transaminase levels; B96.20 Unspecified Escherichia coli [E. coli] as the cause of diseases classified elsewhere; K70.11 Alcoholic hepatitis with ascites; K31.89 Other diseases of stomach and duodenum; F60.9 Personality disorder, unspecified; F10.20 Alcohol dependence, uncomplicated; K72.10 Chronic hepatic failure without coma
CPT/HCPCS: 36415; 71045-TC; 76942-TC; 80048-TC; 80053-TC; 80076-TC; 81001; 82140-TC; 82533; 83605-TC; 83735-TC; 84100-TC; 84443-TC; 84484-TC; 84550-TC; 85025-TC; 85730-TC; 86850-TC; 87040-TC; 87081-TC; 87086-TC; 87186-TC; A4216; A9563; G0378; J0696; J2270; J2405; J3411; J3475; J3480; J3490; J7030; J7040; J7050; J7060; J7120; J7510; P9016; P9017; P9047

== ENCOUNTER 2022-01-11 21:14 | Inpatient (IN) | payer BC ==
[~2022-01-11] VITALS: Ht 152.4 cm; Wt 55.3 kg
[~2022-01-11 21:14] MED LIST changes: +ACID1TAB12 PO; -CIPR500T5 PO; +NITR100C15 PO; +Thiamine HCL PO
--- NOTE | 2022-01-11 21:25 | NUR ---
[id number]. DIFFICULTY BREATHING 2ND TO ABD DISTENTION. PATIENT IS AAOX4. -CP, JAUNDICE WITH ABDOMINAL DISTENTION. WITH BILATERAL LOWER LEG PITTING EDEMA GRADE 2. PLACED COMFORTABLY IN BED. VITALS CHECKED.
--- NOTE | 2022-01-11 21:29 | NUR ---
bibra from home to er bed 6. aaox4. sob on 02 via nc @ 4lpm. brought in for difficulty breathing 2nd to abdominal distention. pt is dx with liver failure. was at the bedside.
--- NOTE | 2022-01-11 21:38 | NUR ---
TRANSPORT OPERATIONS INSPECTOR AT BEDSIDE
[2022-01-11 22:38] LABS: BASOPHILS % (AUTO) 0.2 % (0.0-2.0); EOSINOPHILS % (AUTO) 0.2 % (0.0-6.0); HEMATOCRIT 26 % (33-45); HEMOGLOBIN 8.5 g/dL (11.5-14.8); LYMPHOCYTES # (AUTO) 0.3 K/uL (0.8-4.8); LYMPHOCYTES % (AUTO) 2.5 % (20.0-44.0); MEAN CORPUSCULAR HGB CONC 33 g/dl (31.0-36.0); MEAN CORPUSCULAR VOLUME 102 fL (82-100); MONOCYTES # (AUTO) 0.6 K/uL (0.1-1.30); MONOCYTES % (AUTO) 4.8 % (2.0-12.0); NEUTROPHILS # (AUTO) 10.8 K/uL (1.8-8.9); NEUTROPHILS % (AUTO) 92.3 % (43.0-81.0); PLATELET COUNT (AUTO) 81 K/uL (150-450); RED BLOOD CELL COUNT(AUTO) 2.55 MIL/uL (4.0-5.2); WHITE BLOOD COUNT (AUTO) 11.7 K/uL (4.3-11.0)
--- NOTE | 2022-01-11 22:46 | NUR ---
CAREGIVER KIM [phone]
[2022-01-11 22:57] LABS: CALCIUM, SERUM 8.7 mg/dL (8.5-10.1); CREATININE 0.7 mg/dL (0.6-1.3); POTASSIUM 4.3 mmol/L (3.5-5.1)
[2022-01-11 23:03] LABS: ALBUMIN 1.9 g/dL (3.4-5.0); BILIRUBIN,DIRECT 5.8 mg/dL (0.0-0.2); BILIRUBIN,TOTAL 8.6 mg/dL (0.2-1.0); TOTAL PROTEIN, SERUM 6.2 g/dL (6.4-8.2)
--- NOTE | 2022-01-11 23:30 | NUR ---
COVID SWAB SENT TO LAB
--- NOTE | 2022-01-11 23:53 | NUR ---
XRAY DONE AT BEDSIDE
[2022-01-12] MEDS ORDERED: ENOXAPARIN SODIUM 40 MG/0.4 ML DISP.SYRIN SQ SCH
[2022-01-12] MEDS ORDERED: ONDANSETRON HCL/PF 4 MG/2 ML VIAL IVP PRN
[2022-01-12] MEDS ORDERED: FUROSEMIDE 40 MG/4 ML VIAL IV ONE
[2022-01-12] MEDS ORDERED: ACETAMINOPHEN 325 MG TABLET PO PRN
--- NOTE | 2022-01-12 00:16 | NUR ---
UPDATE GIVEN TO CAREGIVER
[2022-01-12] MEDS ORDERED: AZITHROMYCIN 500 MG in IV D5W 250 ML IV ONE (01:30)
[2022-01-12] MEDS ORDERED: CEFTRIAXONE 1GM BAG (ER ONLY) 1 GM/50 ML PIGGYBACK IV ONE (01:30)
[2022-01-12] MEDS ORDERED: CEFTRIAXONE 1GM BAG (ER ONLY) 50 ML IV ONE (01:48)
[2022-01-12] MEDS ORDERED: AZITHROMYCIN 500 MG VIAL ONE (01:48)
[2022-01-12] MEDS: ALBUMIN 25% 25 GM in PREMIX 1 EA IV SCH ×3 (01:55→11:24)
--- NOTE | 2022-01-12 02:12 | NUR ---
REPORT GIVEN TO DELTA BUCIO
--- NOTE | 2022-01-12 03:01 | NUR ---
PT TRANSPORTED TO ROOM 323-1 VIA [facility] IN STABLE CONDITION
--- NOTE | 2022-01-12 03:10 | NUR ---
RN NOTES; PATIENT RECEIVED IN RM 323-1 FROM ER WITH VIKTOR DIXON ABLE TO VERBALIZE NEEDS,ON 2L OXYGEN SUPPLEMENT VIA NC MIRELA WELL,NO SIGN SOB/DISTRESS NOTED,NO COMPLAINE OF PAIN/DISCOMFORT AT THIS TIME,IV ACCESS ON LAC 20G SL PATENT AND INTACT,PT WAS ORIENT THE RM AND VERBALIZE UNDERSTANDING,SAFETY MEASURE INPLACE,CALL LIGHT WITHIN REACH.BED LOCKED AND LOW POSITON,WILL CONTINUE TO MONITOR.
[2022-01-12] MEDS ORDERED: CEFEPIME 2 GM in IV D5W 100 ML IV ONE (03:30)
[2022-01-12] MEDS ORDERED: FUROSEMIDE 40 MG/4 ML VIAL ONE (04:38)
--- NOTE | 2022-01-12 04:48 | NUR ---
RN NOTES; ALBUMIN 25GM IV AND LASIX 40MG INJ WAS GIVEN EXCEPT MAXIPIME 2GM NOT AVAILABLE IN THE NURSING OFFICE AND [facility].SUPERVISURE AND CHARGE NURSE AWARE.
[2022-01-12] MEDS ORDERED: ALBUMIN 25% 100 ML IV ONE (04:59)
--- NOTE | 2022-01-12 06:23 | NUR ---
RN CLOSING NOTE; PATIENT IN BED SLEEPING BUT EASY TO AROUSED,AOX4 ON 2L OXYGEN SUPPLEMENT VIA NC MIRELA WELL,NO SIGN SOB/DISTRESS NOTED,NO COMPLAINE OF PAIN/DISCOMFORT DURING SHIFT,DUE MEDS GIVEN ORDER,ALL NEEDS ATTENDED,,IV ACCESS ON LAC 20G SL PATENT AND INTACT,SAFETY MEASURE INPLACE,CALL LIGHT WITHIN REACH.BED LOCKED AND LOW POSITON,WILL ENDORSED TO NEXT SHIFT.
--- NOTE | 2022-01-12 07:15 | NUR ---
ROAD CONSULTANT OPENING NOTES: RECEIVED PT IN BED ASLEEP EASILY AROUSED WITH STIMULI. ALERT AND ORIENTED X 4 AND ABLE TO VERBALIZED NEEDS. ON ROOM AIR AND TOLERATING WELL. NO SOB OR CARDIAC DISTRESS NOTED. ON OPTOMETRIST PRESIDENT/PRACTICE OWNER WITH CURRENT READING OF SR 91BPM. IV ACCESS ON LAC G#20 PATENT, INTACT AND SALINE LOCKED. SAFETY MEASURES MAINTAINED: BED IN LOWEST AND LOCKED POSITION, SIDE RAILS UP X 2. CALL LIGHT IN EASY REACH FOR HELP. WILL MONITOR PT ACCORDINGLY.
[2022-01-12 07:43] LABS: HEMATOCRIT 23 % (33-45); HEMOGLOBIN 7.8 g/dL (11.5-14.8); LYMPHOCYTES # (AUTO) 0.3 K/uL (0.8-4.8); LYMPHOCYTES % (AUTO) 2.6 % (20.0-44.0); MEAN CORPUSCULAR HGB CONC 33 g/dl (31.0-36.0); MEAN CORPUSCULAR VOLUME 103 fL (82-100); MONOCYTES # (AUTO) 0.7 K/uL (0.1-1.30); MONOCYTES % (AUTO) 5.2 % (2.0-12.0); NEUTROPHILS # (AUTO) 12.3 K/uL (1.8-8.9); NEUTROPHILS % (AUTO) 92.2 % (43.0-81.0); PLATELET COUNT (AUTO) 76 K/uL (150-450); RED BLOOD CELL COUNT(AUTO) 2.27 MIL/uL (4.0-5.2); WHITE BLOOD COUNT (AUTO) 13.3 K/uL (4.3-11.0)
[2022-01-12 07:46] LABS: ALBUMIN 2.1 g/dL (3.4-5.0); BILIRUBIN,TOTAL 8.2 mg/dL (0.2-1.0); CALCIUM, SERUM 8.5 mg/dL (8.5-10.1); CREATININE 0.5 mg/dL (0.6-1.3); MAGNESIUM 1.5 mg/dL (1.8-2.4); POTASSIUM 4.5 mmol/L (3.5-5.1); TOTAL PROTEIN, SERUM 6.1 g/dL (6.4-8.2)
[2022-01-12] MEDS: PANTOPRAZOLE 40 MG TABLET.DR PO SCH (07:59)
[2022-01-12 08:00] VITALS: BP 121/82
[2022-01-12] MEDS: FOLIC ACID 1 MG TABLET PO SCH (09:14)
[2022-01-12] MEDS: SPIRONOLACTONE 25 MG TABLET PO SCH (09:14)
[2022-01-12] MEDS: THIAMINE HCL 100 MG TABLET PO SCH (09:14)
[2022-01-12 09:51] LABS: LYMPHOCYTES % (MANUAL) 4 % (16-48); MONOCYTES % (MANUAL) 3 % (0-11.0); NEUTROPHILS % (MANUAL) 93 (42-76)
[2022-01-12] MEDS: Magnesium 1GM/D5W 100ML PREMIX 100 ML IV SCH ×2 (11:24→12:36)
[2022-01-12] MEDS: CEFEPIME 2 GM in IV D5W 100 ML IV SCH ×2 (12:54→21:10)
[2022-01-12 16:48] VITALS: BP 111/57
--- NOTE | 2022-01-12 19:25 | NUR ---
RN OPENING NOTE PATIENT AWAKE IN BED. A/OX4. NO S/S OF DISTRESS, BREATHING WITHOUT DIFFICULTY ON 5L NC. LAC #20 SL INTACT AND PATENT. TELE READS SR 98. SAFETY MEASURES IN PLACE: BED LOCKED AT LOWEST POSITION, RAILS UP X2, CALL LOZANO WITHIN REACH. WILL CONTINUE TO MONITOR PATIENT.
--- NOTE | 2022-01-12 19:47 | NUR ---
RN NOTE IT WAS ENDORSED TO THIS RN THAT PATIENT HAD REFUSED ALL - ALL - FOOD ITEMS OFFERED. IN TRYING TO ACCOMMODATE PATIENT (OFFERING NON-GLUTEN FOOD ITEMS) PATIENT HAD CONSUMED VIRTUALLY NOTHING ALL DAY, SENDING ITEMS BACK. UPON COMING ON SHIFT, THIS RN OFFERED THE PATIENT SANDWICHES SANS BREAD. IT WAS EXPLAINED TO PATIENT THAT CAFETERIA IS NOW CLOSED AND ONLY NIGHTLY SNACKS ARE AVAILABLE. PATIENT TOOK THE SANDWICHES, TAKING A BITE OF ONE, AND STATING SHE DECIDED TO NOT HAVE EITHER SANDWICH. UPON CLEARING HER TABLE, SHE CHANGED HER MIND AGAIN ASKING FOR THE REMAINING SANDWICH. UPON HANDING IT TO THE PATIENT THE PATIENT THREW IT AGAINST THE WALL ALONG WITH A JUICE. IT WAS EXPLAINED TO THE PATIENT THAT SHE CANNOT THROW THINGS TO WHICH SHE REPLIED, "I JUST DID"; I EXPLAINED TO HER WE ARE TRYING OUR BEST TO BE ACCOMMODATING TO WHICH SHE STATED, "NO YOU ARE NOT!". PATIENT IS STABLE; WILL CONTINUE TO MONITOR PATIENT.
[2022-01-12 20:43] VITALS: BP 111/60
[2022-01-13 00:42] VITALS: BP 124/55
[2022-01-13] MEDS: TRAZODONE 50 MG TABLET PO PRN ×2 (01:01→21:38)
--- NOTE | 2022-01-13 04:33 | NUR ---
RN NOTE PATIENT HAS BEEN REFUSING HER TELE MONITOR. PATIENT WAS EDUCATED ON THE USE AND NECESSITY OF THE TELE MONITOR FOR PATIENT'S HEALTH AND SAFETY, BUT PATIENT REFUSES TELE MONITOR NONETHELESS. PATIENT REMAINS STABLE; WILL CONTINUE TO MONITOR PATIENT.
[2022-01-13 04:36] VITALS: BP 112/68
[2022-01-13] MEDS: CEFEPIME 2 GM in IV D5W 100 ML IV SCH ×3 (05:42→21:38)
--- NOTE | 2022-01-13 06:39 | NUR ---
RN CLOSING NOTE PATIENT ASLEEP IN BED. A/OX4. NO S/S OF DISTRESS, BREATHING WITHOUT DIFFICULTY ON ROOM AIR. LAC #20 SL INTACT AND PATENT. TELE MONITOR STILL REFUSED BY PATIENT. SAFETY MEASURES IN PLACE: BED LOCKED AND AT LOWEST POSITION, RAILS UP X2, CALL LOZANO WITHIN REACH. WILL ENDORSE TO NEXT SHIFT FOR CAMMIE.
[2022-01-13 08:00] VITALS: BP 99/49
[2022-01-13] MEDS: SPIRONOLACTONE 25 MG TABLET PO SCH (09:00)
[2022-01-13] MEDS: PANTOPRAZOLE 40 MG TABLET.DR PO SCH (09:08)
[2022-01-13] MEDS: THIAMINE HCL 100 MG TABLET PO SCH (09:08)
[2022-01-13] MEDS: FOLIC ACID 1 MG TABLET PO SCH (09:08)
[2022-01-13] MEDS ORDERED: MAGNESIUM OXIDE 400 MG TABLET PO ONE (10:00)
[2022-01-13] MEDS ORDERED: MULT-754 PO (13:52)
[2022-01-13 16:00] VITALS: BP 95/42
--- NOTE | 2022-01-13 18:05 | NUR ---
RN CLOSING NOTE PATIENT RECEIVED IN BED AND SLEEPING. REMAINS A/OX4 AND ABLE TO VERBALIZE ALL NEEDS. PATIENT OBSERVED ON ROOM AIR, HOWEVER NO S/SX OF RESPIRATORY DISTRESS. PATIENT DENIED PAIN UPON ASSESSMENT. REMAINS INCONTINENT OF GI/ WITH ONE BOWEL MOVEMENT OBSERVED. STILL REMAINS WEAK AND ON BED CONFINEMENT. BED-BATH GIVEN AND TOLERTED WELL. IV ANTIBIOTICS RECEIVED VIA IV; TOLERATED WELL WITH NO S/SX OF ADVERSE REACTION. IV ACCESS TO LAC REMAINS INTACT AND PATENT. TOLERATED ALL MEDICATIONS AND CARE WELL. PATIENT REMAINED COMFORTABLE AND KEPT CLEAN AND DRY. SAFETY MEASURES REMAIN IN PLACE WITH BED LOW AND LOCKED. SIDE-RAIL UPX2 WITH CALL LIGHT, PHONE AND TABLE WITHIN REACH. WILL CONT TO MONITOR.
--- NOTE | 2022-01-13 19:40 | NUR ---
RN OPENING NOTE PATIENT AWAKE IN BED W/ FAMILY AT BEDSIDE. A/OX4. NO S/S OF DISTRESS, BREATHING WITHOUT DIFFICULTY ON ROOM AIR. LAC#20 SL INTACT AND PATENT. PER ALYSHA KRISHNAMURTHY, PATIENT HAS BEEN DOWNGRADED FROM TELE TO MS. SAFETY MEASURES IN PLACE: BED LOCKED IN PLACE AND AT LOWEST POSITION, RAILS UP X2, CALL LOZANO WITHIN REACH. WILL CONTINUE TO MONITOR PATIENT. Addendum: 01/13/22 at 2055 by ROBYN SCHNEIDER RN ADDENDUM: SPOKE W/ CHARGE - NO ORDER HAS BEEN GIVEN OF YET TO DOWNGRADE TO MS - ONLY PROG NOTE. AZAM WIGGINS, STATED PATIENT IS TO REMAIN TELE. NONETHELESS, PATIENT STILL REFUSES TELE MONITOR. PATIENT STABLE; WILL CONTINUE TO MONITOR PATIENT.
[2022-01-13 20:00] VITALS: BP 101/52
[2022-01-14] VITALS (9 sets, daily range): BP systolic 97–116; BP diastolic 52–78
[2022-01-14] MEDS: CEFEPIME 2 GM in IV D5W 100 ML IV SCH (05:16)
--- NOTE | 2022-01-14 06:24 | NUR ---
RN CLOSING NOTE PATIENT ASLEEP IN BED. A/OX4. NO S/S OF DISTRESS, BREATHING WITHOUT DIFFICULTY ON ROOM AIR. LAC #20 SL INTACT AND PATENT. PATIENT IS ADAMANT ABOUT REFUSING TELE MONITOR. SAFETY MEASURES IN PLACE: BED LOCKED AND AT LOWEST POSITION, RAILS UP X2, CALL LOZANO WITHIN REACH. WILL ENDORSE TO NEXT SHIFT FOR CAMMIE.
--- NOTE | 2022-01-14 07:45 | NUR ---
SALES REPRESENTATIVE PRINTING OPENING NOTES: RECEIVED PT IN BED ASLEEP EASILY AROUSED WITH STIMULI. ALERT AND ORIENTED X 4 AND ABLE TO VERBALIZE NEEDS. ON ROOM AIR AND TOLERATING WELL. NO SOB OR CARDIAC DISTRESS NOTED. ON MUNITIONS HANDLER SUPERVISOR WITH CURRENT READING OF SR 91BPM. IV ACCESS ON LAC G#20 PATENT, INTACT AND SALINE LOCKED. SAFETY MEASURES MAINTAINED: BED IN LOWEST AND LOCKED POSITION, SIDE RAILS UP X 2. CALL LIGHT IN EASY REACH FOR HELP. WILL MONITOR PT ACCORDINGLY.
--- NOTE | 2022-01-14 08:00 | NUR ---
DIAMOND CLEANER OPENING NOTES RECEIVED PT IN BED ASLEEP EASILY AROUSED WITH STIMULI. ALERT AND ORIENTED X 4 AND ABLE TO VERBALIZED NEEDS. ON ROOM AIR AND TOLERATING WELL. NO SOB OR CARDIAC DISTRESS NOTED. REFUSED HER HYDRAMATIC SPECIALIST BEFORE START OF DAY SHIFT BUT P=96 AT 0800. IV ACCESS ON LAC G#20 PATENT, INTACT AND SALINE LOCKED. SAFETY MEASURES MAINTAINED: BED IN LOWEST AND LOCKED POSITION, SIDE RAILS UP X 2. CALL LIGHT IN EASY REACH FOR HELP. WILL MONITOR PT ACCORDINGLY.
[2022-01-14] MEDS: THIAMINE HCL 100 MG TABLET PO SCH (08:24)
[2022-01-14] MEDS: FOLIC ACID 1 MG TABLET PO SCH (08:24)
[2022-01-14] MEDS: PANTOPRAZOLE 40 MG TABLET.DR PO SCH (08:24)
[2022-01-14] MEDS: SPIRONOLACTONE 25 MG TABLET PO SCH (08:24)
--- NOTE | 2022-01-14 08:43 | NUR ---
PATIENT IS BEING VERY DIFFICULT ON PURPOSE REGARDING HER BREAKFAST CHOICE. KITCHEN IS AWARE OF HER ALLERGIES AND FOOD PREFERENCE AND SENT UP A MEAL WHICH SHE REFUSED. SHE STATES THAT SHE WILL NOT EAT EGGS OR GLUTEN FREE CEREAL BUT WILL NOT LET ME KNOW WHAT SHE WILL EAT. RN ASKED PATIENT NUMEROUS TIMES WHAT SHE WOULD LIKE TO EAT AND MENTIONED TO PATIENT THAT THE KITCHEN IS READY AND WILLING TO GIVE HER WHAT SHE WANTS BUT SHE WON'T TELL THE RN WHAT SHE WANTS.
[2022-01-14 12:16] LABS: BASOPHILS % (AUTO) 0.3 % (0.0-2.0); EOSINOPHILS % (AUTO) 0.3 % (0.0-6.0); LYMPHOCYTES # (AUTO) 0.4 K/uL (0.8-4.8); LYMPHOCYTES % (AUTO) 7.6 % (20.0-44.0); MEAN CORPUSCULAR HGB CONC 33 g/dl (31.0-36.0); MEAN CORPUSCULAR VOLUME 104 fL (82-100); MONOCYTES # (AUTO) 0.6 K/uL (0.1-1.30); MONOCYTES % (AUTO) 9.9 % (2.0-12.0); NEUTROPHILS # (AUTO) 4.8 K/uL (1.8-8.9); NEUTROPHILS % (AUTO) 81.9 % (43.0-81.0); PLATELET COUNT (AUTO) 53 K/uL (150-450); WHITE BLOOD COUNT (AUTO) 5.9 K/uL (4.3-11.0)
[2022-01-14 12:38] LABS: RED BLOOD CELL COUNT(AUTO) 1.94 MIL/uL (4.0-5.2)
[2022-01-14 12:41] LABS: HEMATOCRIT 20 % (33-45); HEMOGLOBIN 6.7 g/dL (11.5-14.8)
--- NOTE | 2022-01-14 13:32 | NUR ---
RN NOTES U/S GUIDED PARACENTESIS DONE BY DR MCCLELLAN, PT TOLERATED PROCEDURES WITH 2,400ML DARK YELLOW FLUIDS REMOVED. FLUID DRAINED BROUGHT TO LAB FOR CYTOLOGY.
[2022-01-14] MEDS ORDERED: ALBUMIN 5% 25 GM in PREMIX 1 EA IV SCH (15:00)
--- NOTE | 2022-01-14 15:00 | NUR ---
RN NOTES PATIENT WITH CRITICAL LEVEL HGB 6.7. DR NAVA AWARE. ORDERED TO DO TYPE AND SCREEN THEN INFUSE PRBC X 1 UNIT.
[2022-01-14] MEDS ORDERED: ALBUMIN 25% 12.5 GM/50 ML BOTTLE IV ONE (15:30)
[2022-01-14] MEDS ORDERED: ALBUMIN 25% 25 GM in PREMIX 1 EA IV SCH (15:30)
[2022-01-14 15:35] LABS: LYMPHOCYTES % (MANUAL) 10 % (16-48); MONOCYTES % (MANUAL) 10 % (0-11.0); NEUTROPHILS % (MANUAL) 80 (42-76)
--- NOTE | 2022-01-14 16:33 | NUR ---
RN NOTES ADMINISTERED ALBUMIN 25% 25GM/100ML IV POST PARACENTESIS PER MD ORDER.
[2022-01-14] MEDS: MORPHINE SULFATE INJ 2 MG/ML DISP.SYRIN IV PRN (16:35)
--- NOTE | 2022-01-14 18:16 | NUR ---
RN NOTES BLOOD TRANSFUSION PRBC X 1 VIA LEFT AC #20G STARTED AT 1815. WILL MONITOR FOR ANY ADVERSE/ALLERGIC REACTIONS.
--- NOTE | 2022-01-14 18:35 | NUR ---
RN NOTES NO ALLERGIC/ADVERSE REACTIONS NOTED AFTER 15MINUTES OF STARTING BLOOD TRANSFUSION. WILL CONTINUE TO MONITOR.
--- NOTE | 2022-01-14 18:40 | NUR ---
PLAYER MANAGER CLOSING NOTES: PT IN BED AWAKE AND WATCHING TV AT THIS TIME. A/O X4. ABLE TO VERBALIZE NEEDS. BLOOD TRANSFUSION OF PRBC X1 ONGOING VIA IV ACCESS ON LAC G#20. PT ON ROOM AIR, TOLERATING WELL, NO SOB OR CARDIAC DISTRESS VOICED. PT STILL REFUSING TELE-MONITORING DESPITE ENCOURAGEMENT.ALL NEEDS AND CARE ATTENDED WELL. SAFETY MEASURES MAINTAINED: BED IN LOWEST LOCKED POSITION, SIDE RAILS UP X 2. CALL LIGHT AND TRAY TABLE W/ IN EASY REACH OF PT. WILL ENDORSE CONTINUITY OF CARE TO FARMWORKER POULTRY NURSE.
[2022-01-14] MEDS: CIPROFLOXACIN HCL 500 MG TABLET PO SCH (21:59)
[2022-01-14] MEDS: TRAZODONE 50 MG TABLET PO PRN (22:00)
--- NOTE | 2022-01-14 22:53 | NUR ---
MUD MIXER HELPER NOTE PATIENT CALLED THIS RN TO ROOM, STATED SHE HAS A BUMP IN ANAL AREA THAT'S ITCHING. EXAMINED AND APPEARS LIKE AN ABSCESS, WARM COMPRESS APPLIED. WOUND CONSULT ORDERED
[2022-01-15] VITALS: BP 105/69
[2022-01-15 03:28] VITALS: BP 133/91
[2022-01-15 04:00] VITALS: BP 106/58
[2022-01-15] MEDS: MORPHINE SULFATE INJ 2 MG/ML DISP.SYRIN IV PRN ×2 (04:16→09:20)
--- NOTE | 2022-01-15 06:40 | NUR ---
SUSTAINABILITY SPECIALIST CLOSING NOTE PATIENT AWAKE IN BED, ALERT/ORIENTED X 4, PT ABLE TO MAKE NEEDS KNOWN. PATIENT STABLE ON RA, NO S/S OF DISTRESS OR SOB NOTED, BREATHING EVEN AND UNLABORED. PATIENT CONTINUES TO REFUSE TELE MONITOR. PATIENT RECEIVED 1 UNIT PRBC AND TOLERATED WELL, NO SIDE EFFECTS NOTED. PATIENT NOTED WITH PERIANAL ABSCESS, PHOTO TAKEN AND WOUND CONSULT ORDERED, APPLIED WARM COMPRESSES. IV ACCESS ON LEFT AC #20G INTACT AND SALINE LOCKED. MEDICATIONS GIVEN ORDERED, PT NEEDS MET THROUGHOUT SHIFT. PATIENT C/O ABDOMINAL PAIN DESPITE MORPHINE GIVEN, HOT PACK AND WARM BLANKET PLACED ON ABDOMEN. SAFETY MEASURES IN PLACE: CALL LIGHT WITHIN REACH, SIDE RAILS UP X 2, BED LOCKED IN LOWEST POSITION, BED ALARM ON. WILL ENDORSE TO DAY SHIFT NURSE FOR CONTINUITY OF CARE
--- NOTE | 2022-01-15 07:50 | NUR ---
CONTROL SYSTEMS DESIGNER OPENING NOTES PATIENT IN BED SLEEPING. TELE (REFUSES MONITOR). PERINEAL ABSCESS DISCOVERED LAST NIGHT. PHOTO TAKEN, WOUND CARE CONSULT ORDERED, HOT COMPRESSES USED FOR COMFORT.LAC #20G, SL. SAFETY MEASURES IN PLACE: BED IN LOWEST LOCKED POSITION, SIDE RAILS X 2, CALL LIGHT AND TABLE WITHIN REACH. WILL CONTINUE TO MONITOR.
[2022-01-15 08:08] VITALS: BP 118/70
[2022-01-15] MEDS: CIPROFLOXACIN HCL 500 MG TABLET PO SCH ×2 (09:08→20:54)
[2022-01-15] MEDS: SPIRONOLACTONE 25 MG TABLET PO SCH (09:09)
[2022-01-15] MEDS: THIAMINE HCL 100 MG TABLET PO SCH (09:09)
[2022-01-15] MEDS: FOLIC ACID 1 MG TABLET PO SCH (09:16)
[2022-01-15] MEDS: PANTOPRAZOLE 40 MG TABLET.DR PO SCH (09:18)
--- NOTE | 2022-01-15 10:33 | NUR ---
WOUND CARE CONSULT: PT PRESENTS WITH JAUNDICE AND PERIANAL RAISED AREA, PRESENT ON ADMISSION. DR MEDINA NOTIFIED OF SURGICAL CONSULT REQUEST. PT IS INDEPENDENT WITH BED MOBILITY AND IS INCONTINENT AT TIMES. DISCUSSED SKIN PROTECTION WITH NURSING STAFF. IN AGREEMENT WITH PLAN OF CARE.
[2022-01-15] MEDS ORDERED: CIPR500T5 PO (11:05)
[2022-01-15 11:27] LABS: BASOPHILS # (AUTO) 0.1 K/uL (0.0-0.2); BASOPHILS % (AUTO) 1.4 % (0.0-2.0); EOSINOPHILS % (AUTO) 0.4 % (0.0-6.0); HEMATOCRIT 25 % (33-45); HEMOGLOBIN 8.4 g/dL (11.5-14.8); LYMPHOCYTES # (AUTO) 0.6 K/uL (0.8-4.8); LYMPHOCYTES % (AUTO) 11.4 % (20.0-44.0); MEAN CORPUSCULAR HGB CONC 33 g/dl (31.0-36.0); MEAN CORPUSCULAR VOLUME 100 fL (82-100); MONOCYTES # (AUTO) 0.5 K/uL (0.1-1.30); MONOCYTES % (AUTO) 9.7 % (2.0-12.0); NEUTROPHILS # (AUTO) 4.3 K/uL (1.8-8.9); NEUTROPHILS % (AUTO) 77.1 % (43.0-81.0); PLATELET COUNT (AUTO) 55 K/uL (150-450); RED BLOOD CELL COUNT(AUTO) 2.51 MIL/uL (4.0-5.2); WHITE BLOOD COUNT (AUTO) 5.6 K/uL (4.3-11.0)
[2022-01-15 12:00] VITALS: BP 104/56
--- NOTE | 2022-01-15 12:12 | NUR ---
GENERAL SURGERY CONSULT FOR PERINEAL ABSCESS ORDERED BY DR IBARRA. INFORMED HER DR NAVA HAS A DISCHARGE ORDER IN FOR TODAY AND TO PLEASE CONSULT WITH HIM. SHE ACKNOWLEDGED THIS. Addendum: 01/15/22 at 1254 by KEYA CARRION RN DISCHARGE CANCELLED FOR TODAY. DR CHA HAD WANTED TO SET UP PATIENT FOR GENERAL SURGERY CONSULT FOR TODAY BUT SHE HAD ALREADY EATEN LUNCH. SO SHE WILL BE SCHEDULED FOR TOMORROW.
[2022-01-15 16:11] VITALS: BP 126/54
--- NOTE | 2022-01-15 18:52 | NUR ---
GRINDING WHEEL FACER CLOSING NOTE PATIENT AWAKE IN BED, ALERT/ORIENTED X 4, PT ABLE TO MAKE NEEDS KNOWN. PATIENT STABLE ON RA, NO S/S OF DISTRESS OR SOB NOTED, BREATHING EVEN AND UNLABORED. PATIENT CONTINUES TO REFUSE TELE MONITOR. PATIENT NOTED WITH PERIANAL ABSCESS, PHOTO TAKEN AND WOUND CONSULT ORDERED, APPLIED WARM COMPRESSES. IV ACCESS ON LEFT AC #20G INTACT AND SALINE LOCKED. MEDICATIONS GIVEN ORDERED, PT NEEDS MET THROUGHOUT SHIFT. PATIENT C/O ABDOMINAL PAIN DESPITE MORPHINE GIVEN, HOT PACK AND WARM BLANKET PLACED ON ABDOMEN. SAFETY MEASURES IN PLACE: CALL LIGHT WITHIN REACH, SIDE RAILS UP X 2, BED LOCKED IN LOWEST POSITION, BED ALARM ON. WILL ENDORSE TO DAY SHIFT NURSE FOR CONTINUITY OF CARE
--- NOTE | 2022-01-15 19:30 | NUR ---
RN OPENING NOTES RECEIVED PT IN BED, AWAKE. AOx4, ABLE TO MAKE NEEDS KNOWN. ON RA AND TOLERATING WELL. NO SOB NOTED. NO S/SX OF RESPIRATORY DISTRESS NOTED. IV ACCESS IN LAC #20 G. IV IS INTACT, PATENT, AND FLUSHING WELL. PATIENT REFUSES TELE MONITOR. REINFORCED THAT PATIENT WILL HAVE NO FOOD OR WATER AFTER MIDNIGHT BECAUSE OF SURGERY. PT VERBALIZES UNDERSTANDING AND AGREES. SAFETY PRECAUTIONS IN PLACE: BED IN LOWEST, LOCKED POSITION, SIDERAILS UPx2, AND BRAKES ON. TABLE AND CALL LIGHT WITHIN REACH. ALL NEEDS MET AT THIS TIME.
[2022-01-15 21:20] LABS: EOSINOPHILS % (MANUAL) 1 % (0-4); LYMPHOCYTES % (MANUAL) 11 % (16-48); MONOCYTES % (MANUAL) 4 % (0-11.0); NEUTROPHILS % (MANUAL) 84 (42-76)
[2022-01-15] MEDS: TRAZODONE 50 MG TABLET PO PRN (23:26)
[2022-01-16] VITALS (7 sets, daily range): BP systolic 90–122; BP diastolic 50–68
--- NOTE | 2022-01-16 06:56 | NUR ---
RN CLOSING NOTES PT IN BED, ASLEEP ON SIDE, AWAKENS TO VERBALS STIMULI. AOx4, ABLE TO MAKE NEEDS KNOWN. ON RA AND TOLERATING WELL. NO SOB NOTED. NO S/SX OF RESPIRATORY DISTRESS NOTED. IV ACCESS IN LAC #20 G. IV IS INTACT, PATENT, AND FLUSHING WELL. PATIENT REFUSES TELE MONITOR. REINFORCED THAT PATIENT WILL HAVE NO FOOD OR WATER AFTER MIDNIGHT BECAUSE OF SURGERY. PT VERBALIZES UNDERSTANDING AND AGREES. ALL ORDERS CARRIED OUT. ALL NEEDS MET. PT KEPT CLEAN AND DRY. SAFETY PRECAUTIONS IN PLACE: BED IN LOWEST, LOCKED POSITION, SIDERAILS UPx2, AND BRAKES ON. TABLE AND CALL LIGHT WITHIN REACH. WILL ENDORSE TO ONCOMING SHIFT FOR CAMMIE.
--- NOTE | 2022-01-16 07:20 | NUR ---
ms rn received on bed, awake,alert,oriented x4, not in any form of distress, respirations even and unlabored,no sob noted, patient on npo ,for liver biopsy today, will monitor patient.
[2022-01-16] MEDS ORDERED: LIDOCAINE 1% INJ 50 ML MDV IJ ONE (07:25)
[2022-01-16] MEDS: PANTOPRAZOLE 40 MG TABLET.DR PO SCH (07:30)
[2022-01-16] MEDS ORDERED: HYDROGEN PEROXIDE 480 ML BOTTLE ONE (07:48)
--- NOTE | 2022-01-16 09:20 | NUR ---
ms randolph npo at this time, for i and d today.
--- NOTE | 2022-01-16 11:00 | NUR ---
ms rn went down to or ,all needs attended.
[2022-01-16] MEDS ORDERED: FENTANYL PF 100MCG/2ML AMPUL ONE ×2 (11:49)
[2022-01-16] MEDS ORDERED: FAMOTIDINE/PF INJ 20 MG/2 ML VIAL IV ONE (11:50)
[2022-01-16] MEDS ORDERED: DEXAMETHASONE SOD PHOSPHATE 10 MG/ML VIAL ONE (11:50)
[2022-01-16] MEDS ORDERED: MIDAZOLAM HCL 2 MG/2ML VIAL ONE (11:50)
[2022-01-16] MEDS ORDERED: SUCCINYLCHOLINE CHLORIDE 20 MG/ML VIAL ONE (11:51)
[2022-01-16] MEDS ORDERED: ANESTHESIA TRAY IN PYXIS 1 EA TRAY MC ONE (12:02)
--- NOTE | 2022-01-16 14:00 | NUR ---
ms rn patient just came back from recovery, awake,alert,oriented 4,denies pain at this time,will monitor patient.
[2022-01-16] MEDS: FOLIC ACID 1 MG TABLET PO SCH (14:50)
[2022-01-16] MEDS: CIPROFLOXACIN HCL 500 MG TABLET PO SCH ×2 (14:51→20:55)
[2022-01-16] MEDS: THIAMINE HCL 100 MG TABLET PO SCH (14:51)
[2022-01-16] MEDS: SPIRONOLACTONE 25 MG TABLET PO SCH (14:51)
--- NOTE | 2022-01-16 18:43 | NUR ---
ms rn, patient just awake, meds given,tolerated well.
--- NOTE | 2022-01-16 19:20 | NUR ---
PREMIUM NOTE INTEREST CALCULATOR CLERK OPENING NOTE RECEIVED PT IN BED, AWAKE. AOx4, ABLE TO MAKE NEEDS KNOWN. ON RA AND TOLERATING WELL. NO SOB NOTED. NO S/SX OF RESPIRATORY DISTRESS NOTED. IV ACCESS IN LEFT AC #20 G, IV IS INTACT, PATENT, AND FLUSHING WELL. PATIENT REFUSES TELE MONITOR. SAFETY PRECAUTIONS IN PLACE: BED LOCKED IN LOWEST POSITION, SIDE RAILS UP x2. BED SIDE TABLE AND CALL LIGHT WITHIN REACH. WILL CONTINUE TO MONITOR PT.
[2022-01-16] MEDS: TRAZODONE 50 MG TABLET PO PRN (23:26)
[2022-01-17] VITALS: BP 96/52
[2022-01-17 04:00] VITALS: BP 99/50
--- NOTE | 2022-01-17 06:53 | NUR ---
PERSONAL HEALTH COACH CLOSING NOTE LEFT PT SLEEPING IN BED. PT A/O x 4, ABLE TO MAKE NEEDS KNOWN. ON RA AND TOLERATING WELL. NO SOB NOTED. NO S/SX OF RESPIRATORY DISTRESS NOTED. IV ACCESS IN LAC #20 G. IV IS INTACT, PATENT, AND FLUSHING WELL. PATIENT REFUSES TELE MONITOR. ALL ORDERS CARRIED OUT. ALL MEDS ADMINISTERED IN TIMELY MANNER. PT KEPT CLEAN AND DRY. SAFETY PRECAUTIONS IN PLACE: BED IN LOWEST, LOCKED POSITION, SIDE RAILS UPx2. CALL LIGHT WITHIN REACH. WILL ENDORSE PT'S CARE TO ONCOMING SHIFT NURSE.
--- NOTE | 2022-01-17 07:28 | NUR ---
ms rn received on bed, awake,alert,oriented x4, not in any form of distress, respirations even and unlabored,no sob noted, s/p i and d of perineal abscess, denies pain at this time, will continue to monitor patient.
[2022-01-17 08:00] VITALS: BP 170/70
[2022-01-17] MEDS: SPIRONOLACTONE 25 MG TABLET PO SCH (09:46)
[2022-01-17] MEDS: THIAMINE HCL 100 MG TABLET PO SCH (09:46)
[2022-01-17] MEDS: CIPROFLOXACIN HCL 500 MG TABLET PO SCH (09:46)
[2022-01-17] MEDS: FOLIC ACID 1 MG TABLET PO SCH (09:46)
[2022-01-17] MEDS: PANTOPRAZOLE 40 MG TABLET.DR PO SCH (09:47)
--- NOTE | 2022-01-17 09:50 | NUR ---
ms rn was seen by dr. huizar, already cleared to be discharge.
--- NOTE | 2022-01-17 09:50 | NUR ---
ms randolph breakfast served,due meds given,tolerated well.
[2022-01-17] MEDS: MORPHINE SULFATE INJ 2 MG/ML DISP.SYRIN IV PRN (10:00)
[2022-01-17] MEDS: PIPERACILLIN /TAZOBACTAM 3.375 G in IV D5W 50 ML IV SCH ×2 (13:34→21:34)
--- NOTE | 2022-01-17 16:00 | NUR ---
ms rn verified w/ corrections caseworker regarding discharge, still have days, d/c plan tomorrow.
[2022-01-17 16:06] VITALS: BP 110/66
--- NOTE | 2022-01-17 17:50 | NUR ---
ms rn on bed, no disstress noted,all needs attended.
[2022-01-17 20:00] VITALS: BP 97/51
--- NOTE | 2022-01-17 20:53 | NUR ---
LOAD CHECKER OPENING NOTE RECEIVED TRANSFER OF CARE REPORT FROM REGISTRY NURSE AKOSUA. PATIENT AWAKE IN BED, ALERT/ORIENTED X 4, PT ABLE TO MAKE NEEDS KNOWN. PATIENT STABLE ON RA, NO S/S OF DISTRESS OR SOB NOTED, BREATHING EVEN AND UNLABORED. NO C/O PAIN AT THIS TIME. PATIENT CONTINUE TO REFUSE TELE MONITOR. SAFETY MEASURES IN PLACE: CALL LIGHT WITHIN REACH, SIDE RAILS UP X 2, BED LOCKED IN LOWEST POSITION, BED ALARM ON. WILL CONTINUE TO MONITOR PATIENT
[2022-01-17] MEDS: TRAZODONE 50 MG TABLET PO PRN (21:48)
[2022-01-18] MEDS: PIPERACILLIN /TAZOBACTAM 3.375 G in IV D5W 50 ML IV SCH ×3 (05:15→20:52)
--- NOTE | 2022-01-18 06:17 | NUR ---
DAIRY NUTRITION SPECIALIST CLOSING NOTE PATIENT SLEEPING IN BED, ALERT/ORIENTED X 4, PT ABLE TO MAKE NEEDS KNOWN. PATIENT STABLE ON RA, NO S/S OF DISTRESS OR SOB NOTED, BREATHING EVEN AND UNLABORED. NO SIGNIFICANT CHANGES THROUGHOUT SHIFT, PT SLEPT WELL THROUGH THE NIGHT. PATIENT CONTINUE TO REFUSE TELE MONITOR. MEDICATIONS GIVEN ORDERED, PT NEEDS MET THROUGHOUT SHIFT. LEFT AC IV ACCESS INTACT AND SALINE LOCKED. SAFETY MEASURES IN PLACE: CALL LIGHT WITHIN REACH, SIDE RAILS UP X 2, BED LOCKED IN LOWEST POSITION, BED ALARM ON. WILL ENDORSE TO DAYSHIFT NURSE FOR CONTINUITY OF CARE
--- NOTE | 2022-01-18 06:20 | NUR ---
DIRECTOR OF SURGERY NOTES Patient in bed alert oriented x 4 . No acute distress noted. Breathing unlabored. IV access patent and intact, no redness, no swelling noted. Patient refusing table assembler despite of explanation of risks and benefits, MD is aware. Head of bed elevated. Safety measures in place. Call light within reach. Will continue to monitor accordingly Addendum: 01/18/22 at 1716 by KELY FUENTES RN error-disregard above notes
--- NOTE | 2022-01-18 07:20 | NUR ---
STITCH BONDING MACHINE OPERATOR NOTES Patient in bed alert oriented x 4 . No acute distress noted. Breathing unlabored. IV access patent and intact, no redness, no swelling noted. Patient refusing ekg monitor tech despite of explanation of risks and benefits, MD is aware. Head of bed elevated. Safety measures in place. Call light within reach. Will continue to monitor accordingly
[2022-01-18 08:00] VITALS: BP 122/77
[2022-01-18] MEDS: PANTOPRAZOLE 40 MG TABLET.DR PO SCH (08:05)
[2022-01-18] MEDS: SPIRONOLACTONE 25 MG TABLET PO SCH (08:36)
[2022-01-18] MEDS: FOLIC ACID 1 MG TABLET PO SCH (08:36)
[2022-01-18] MEDS: THIAMINE HCL 100 MG TABLET PO SCH (08:36)
[2022-01-18 16:00] VITALS: BP 94/51
--- NOTE | 2022-01-18 19:00 | NUR ---
KNIFE SETTER GRINDER MACHINE CLOSING NOTES Patient in bed alert oriented x 4 . No acute distress noted. Breathing unlabored. IV access patent and intact, no redness, no swelling noted. Patient refusing teletypesetter monitor despite of explanation of risks and benefits, MD is aware. Head of bed elevated. Safety measures in place. Call light within reach. Needs attended and anticipated. Will endorse to night nurse for continuity of care
--- NOTE | 2022-01-18 19:30 | NUR ---
LEAD CASTER HELPER OPENING NOTE RECEIVED PT IN BED, AWAKE. A/O x4, ABLE TO MAKE NEEDS KNOWN. ON RA AND TOLERATING WELL. NO SOB NOTED. NO S/SX OF RESPIRATORY DISTRESS NOTED. IV ACCESS IN LEFT AC #20 G, IV IS INTACT, PATENT, AND FLUSHING WELL. PATIENT REFUSES TELE MONITOR. SAFETY PRECAUTIONS IN PLACE: BED LOCKED IN LOWEST POSITION, SIDE RAILS UP x2. BED SIDE TABLE AND CALL LIGHT WITHIN REACH. WILL CONTINUE TO MONITOR PT.
[2022-01-18 20:00] VITALS: BP 94/52
[2022-01-19] VITALS: BP 100/52
[2022-01-19 04:00] VITALS: BP 109/69
[2022-01-19] MEDS: PIPERACILLIN /TAZOBACTAM 3.375 G in IV D5W 50 ML IV SCH ×3 (06:01→21:01)
--- NOTE | 2022-01-19 07:25 | NUR ---
AUTOMOBILE OR TRUCK RENTAL DISPATCHER CLOSING NOTE PATIENT SLEEPING IN BED, ALERT/ORIENTED X 4, PT ABLE TO MAKE NEEDS KNOWN. PATIENT STABLE ON RA, NO S/S OF DISTRESS OR SOB NOTED, BREATHING EVEN AND UNLABORED. PT SLEPT WELL THROUGH THE NIGHT. PATIENT CONTINUE TO REFUSE TELE MONITOR. MEDICATIONS GIVEN ORDERED. LEFT AC IV ACCESS INTACT AND SALINE LOCKED. SAFETY MEASURES IN PLACE: CALL LIGHT WITHIN REACH, SIDE RAILS UP X 2, BED LOCKED IN LOWEST POSITION, BED ALARM ON. WILL ENDORSE TO DAYSHIFT NURSE FOR CONTINUITY OF CARE.
[2022-01-19 08:00] VITALS: BP 100/52
--- NOTE | 2022-01-19 08:05 | NUR ---
RN OPENING NOTE PATIENT AWAKE IN BED RESTING. A/O X4. NO S/S OF PAIN NOTED AT THIS TIME. ON ROOM AIR, NO DISTRESS OR SHORTNESS OF BREATH NOTED. IV ACCESS LAC #20G INTACT, PATENT AND FLUSHING WELL. FALL AND SAFETY MEASURES IN PLACE, BED ALARM ON, BED IN LOW AND LOCK POSITION, CALL LIGHT AND TABLE WITHIN EASY REACH, SIDE RAILS UP X2. WILL CONTINUE TO MONITOR.
[2022-01-19] MEDS: PANTOPRAZOLE 40 MG TABLET.DR PO SCH (08:57)
[2022-01-19] MEDS: THIAMINE HCL 100 MG TABLET PO SCH (08:57)
[2022-01-19] MEDS: FOLIC ACID 1 MG TABLET PO SCH (08:57)
[2022-01-19] MEDS: SPIRONOLACTONE 25 MG TABLET PO SCH (08:58)
--- NOTE | 2022-01-19 10:05 | NUR ---
WOUND CARE CONSULT/FOLLOW UP: PT SEEN FOR PERIANAL ABSCESS WHICH HAD RECENT I&D BY GENERAL SURGEON. DEFER TO SURGEONS POSTOP ORDERS. CLARIFIED WITH NURSING STAFF. WILL SEE PRN.
[2022-01-19] MEDS ORDERED: AMOX-430 PO (11:40)
[2022-01-19 12:00] VITALS: BP 104/58
[2022-01-19 16:00] VITALS: BP 110/56
--- NOTE | 2022-01-19 19:37 | NUR ---
RN CLOSING NOTE PATIENT AWAKE IN BED RESTING. A/O X4. NO S/S OF PAIN NOTED AT THIS TIME. ON ROOM AIR, NO DISTRESS OR SHORTNESS OF BREATH NOTED. IV ACCESS LAC #20G INTACT, PATENT AND FLUSHING WELL. SCHEDULE MEDICATIONS ADMINISTERED. FALL AND SAFETY MEASURES IN PLACE, BED ALARM ON, BED IN LOW AND LOCK POSITION, CALL LIGHT AND TABLE WITHIN EASY REACH, SIDE RAILS UP X2. WILL ENDORSE TO CHILD DEVELOPMENT PROFESSOR.
--- NOTE | 2022-01-19 19:39 | NUR ---
RN OPENING NOTE PATIENT AWAKE IN BED. A/OX4. NO S/S OF DISTRESS, BREATHING WITHOUT DIFFICULTY ON ROOM AIR. LAC #20 SL INTACT AND PATENT. PATIENT HAS RESUMED WEARING THE TELE MONITOR. TELE READS SR 63. SAFETY MEASURES IN PLACE: BED LOCKED AND AT LOWEST POSITION, RAILS UP X2, CALL LOZANO WITHIN REACH. WILL CONTINUE TO MONITOR PATIENT.
[2022-01-19 20:00] VITALS: BP 100/51
[2022-01-19] MEDS: TRAZODONE 50 MG TABLET PO PRN (21:07)
--- NOTE | 2022-01-19 23:24 | NUR ---
RN NOTE PATIENT REFUSED 0000 VS. DISCUSSED WITH RELAY DISPATCHER THAT WE WILL ATTEMPT AGAIN AT 0400 VS SHE IS TELE. PATIENT STABLE; WILL CONTINUE TO MONITOR PATIENT.
[2022-01-20 04:00] VITALS: BP 100/55
[2022-01-20] MEDS: PIPERACILLIN /TAZOBACTAM 3.375 G in IV D5W 50 ML IV SCH (05:14)
--- NOTE | 2022-01-20 06:23 | NUR ---
RN CLOSING NOTE PATIENT AWAKE IN BED. A/OX4. NO S/S OF DISTRESS, BREATHING WITHOUT DIFFICULTY ON ROOM AIR. LAC #20 SL INTACT AND PATENT. PATIENT HAS RETURNED TO REFUSING HER TELE MONITOR; PATIENT EDUCATED ON NECESSITY, BUT STILL REFUSING. SAFETY MEASURES IN PLACE: BED LOCKED AND IN PLACE, RAILS UP X3, CALL LOZANO WITHIN REACH. WILL ENDORSE TO NEXT SHIFT FOR CAMMIE.
[2022-01-20] MEDS: PANTOPRAZOLE 40 MG TABLET.DR PO SCH (08:27)
[2022-01-20] MEDS: THIAMINE HCL 100 MG TABLET PO SCH (08:27)
[2022-01-20] MEDS: FOLIC ACID 1 MG TABLET PO SCH (08:27)
[2022-01-20] MEDS: SPIRONOLACTONE 25 MG TABLET PO SCH (08:30)
[2022-01-20 12:00] VITALS: BP 130/59
--- NOTE | 2022-01-20 14:48 | NUR ---
RN NOTE PATIENT HAD A US GUIDED PARACENTESIS TODAY. TOLERATED PROCEDURE WELL, OUTPUT, 3000ML, COLOR LIGHT TRISHA, DR. ARELLANO. V/S TAKEN STABLE. WILL CONTINUE TO MONITOR.
--- NOTE | 2022-01-20 18:52 | NUR ---
RN CLOSING NOTE PATIENT AWAKE IN BED RESTING. A/O X4. NO S/S OF PAIN NOTED AT THIS TIME. ON ROOM AIR, NO DISTRESS OR SHORTNESS OF BREATH NOTED. IV ACCESS LAC #20G INTACT, PATENT AND FLUSHING WELL. SCHEDULE MEDICATIONS ADMINISTERED. FALL AND SAFETY MEASURES IN PLACE, BED ALARM ON, BED IN LOW AND LOCK POSITION, CALL LIGHT AND TABLE WITHIN EASY REACH, SIDE RAILS UP X2. WILL ENDORSE TO DECORATING EQUIPMENT SETTER.
--- NOTE | 2022-01-20 19:26 | NUR ---
RN OPENING NOTE RECEIVED PATIENT AWAKE IN BED RESTING. AOX4 MIRELA WELL ON RM AIR.NO SIGN SOB/DISTRESS NOTED, IV ACCESS LAC #20G INTACT, PATENT AND FLUSHING WELL. FALL AND SAFETY MEASURES IN PLACE, BED ALARM ON, BED IN LOW AND LOCK POSITION, CALL LIGHT AND TABLE WITHIN EASY REACH, SIDE RAILS UP X2. WILL CONTINUE TO MONITOR.
[2022-01-20 20:00] VITALS: BP 105/68
[2022-01-20] MEDS: AMOX/CLAVULANATE 875 MG TABLET PO SCH (20:07)
[2022-01-20] MEDS: TRAZODONE 50 MG TABLET PO PRN (23:47)
--- NOTE | 2022-01-21 06:18 | NUR ---
RN CLOSING NOTE; PATIENT AWAKE IN BED RESTING. AOX4 MIRELA WELL ON RM AIR.NO SIGN SOB/DISTRESS NOTED,NO COMPLAINE OF PAIN/DISCOMFORT DURING SHIFT,DUE MEDS GIVEN ORDER,ALL NEEDS ATTENDED, IV ACCESS LAC #20G INTACT, PATENT AND FLUSHING WELL. FALL AND SAFETY MEASURES IN PLACE, BED ALARM ON, BED IN LOW AND LOCK POSITION, CALL LIGHT AND TABLE WITHIN EASY REACH, SIDE RAILS UP X2. WILL ENDORSED TO NEXT SHIFT.
--- NOTE | 2022-01-21 07:30 | NUR ---
RN Opening Note PT AOx4, able to express her own concerns. Pt made aware of plan of care, verbalized agreement. Will administer medications as prescribed, provide care as needed and monitor throughout shift. All safety precautions taken, call light and table within reach, bed at lowest position.
[2022-01-21 08:00] VITALS: BP 110/55
[2022-01-21] MEDS: SPIRONOLACTONE 25 MG TABLET PO SCH (09:03)
[2022-01-21] MEDS: FOLIC ACID 1 MG TABLET PO SCH (09:03)
[2022-01-21] MEDS: THIAMINE HCL 100 MG TABLET PO SCH (09:03)
[2022-01-21] MEDS: PANTOPRAZOLE 40 MG TABLET.DR PO SCH (09:09)
[2022-01-21] MEDS: AMOX/CLAVULANATE 875 MG TABLET PO SCH ×2 (09:48→20:25)
[2022-01-21 11:00] VITALS: BP 108/73
[2022-01-21] MEDS ORDERED: Thiamine HCL PO (12:31)
[2022-01-21] MEDS ORDERED: SPIR25TA6 PO (12:31)
[2022-01-21 16:00] VITALS: BP 108/73
--- NOTE | 2022-01-21 18:52 | NUR ---
RN Closing Report. PT AOx4 able to express her own concerns. Provided care as needed. Wound care performed to perineal area as ordered. No signs of swelling or infection. Patient remained calm throughout shift, complained about hospital food, decided to order outside food. Educate patient on importance of following renal diet, pt verbalized understanding, she was able to download a renal diet guide oh her phone. Patient remained safe throughout shift. All safety precautions taken, call light and table within reach, bed at lowest position.
[2022-01-21 20:00] VITALS: BP 107/65
--- NOTE | 2022-01-21 20:13 | NUR ---
RN OPENING NOTES RECEIVED PT IN BED, AWAKE, WATCHING TV. AOx4, ABLE TO MAKE NEEDS KNOWN. ON RA AND TOLERATING WELL. NO SOB NOTED. NO S/SX OF RESPIRATORY DISTRESS NOTED. IV ACCESS IN LAC #20G. IV IS INTACT, PATENT, AND FLUSHING WELL. SAFETY PRECAUTIONS IN PLACE: BED IN LOWEST, LOCKED POSITION, SIDERAILS UPx2, AND BRAKES ON. TABLE AND CALL LIGHT WITHIN REACH. ALL NEEDS MET AT THIS TIME.
[2022-01-22] VITALS: BP 100/56
[2022-01-22 04:00] VITALS: BP 106/61
--- NOTE | 2022-01-22 06:52 | NUR ---
RN CLOSING NOTES PT IN BED, ASLEEP, AWAKENS TO VERBAL STIMULI. AOx4, ABLE TO MAKE NEEDS KNOWN. ON RA AND TOLERATING WELL. NO SOB NOTED. NO S/SX OF RESPIRATORY DISTRESS NOTED. IV ACCESS IN LAC #20G. IV IS INTACT, PATENT, AND FLUSHING WELL. ALL ORDERS CARRIED OUT. ALL NEEDS MET. PT KEPT CLEAN AND DRY. SAFETY PRECAUTIONS IN PLACE: BED IN LOWEST, LOCKED POSITION, SIDERAILS UPx2, AND BRAKES ON. TABLE AND CALL LIGHT WITHIN REACH. WILL ENDORSE TO ONCOMING SHIFT FOR CAMMIE.
[2022-01-22 08:00] VITALS: BP 101/49
[2022-01-22] MEDS: SPIRONOLACTONE 25 MG TABLET PO SCH (08:05)
[2022-01-22] MEDS: THIAMINE HCL 100 MG TABLET PO SCH (08:05)
[2022-01-22] MEDS: PANTOPRAZOLE 40 MG TABLET.DR PO SCH (08:05)
[2022-01-22] MEDS: FOLIC ACID 1 MG TABLET PO SCH (08:05)
[2022-01-22] MEDS: AMOX/CLAVULANATE 875 MG TABLET PO SCH (08:06)
[2022-01-22 11:42] VITALS: BP 107/62
--- NOTE | 2022-01-22 11:51 | NUR ---
RN Receiving Report. PT AOx4, able to express her own concerns. Patient has a caregiver at bedside, interested in discharge information. Will follow up with them after there is more information, pt verbalized understanding. Discussed plan of care and plan of care with patient and he verbalized agreement. Will continue to monitor nd provide care as needed. All safety precautions taken with patient, call light and table within reach, bed at lowest position. Will continue to monitor throughout shift and provide care as needed.
--- NOTE | 2022-01-22 13:18 | NUR ---
engine research engineer Note PT AOx4 able to express her own concerns. Patient refused updated picture of perineal gail, states she is better, No discomfort at site, states she forgot about the problem. Removed IV from left arm, Catheter intact, and patent, applied pressure to site and dressing. Patient states her caregiver will drive her home. No other needs expressed, discharge paperwork given to patient along with copies. Patient agrees, all her belonging were given to her and signed belongings form. Advised to follow up with her primary care physician, shared documents with her provider. Patient advised to monitor for signs of infection and see her physician as needed. Caregiver at bedside. All safety precautions taken.
== END 2022-01-22 16:22 | disposition home health service (06) | DRG 981 ==
LOC: ER 21:16 → MED 01-12 02:45 → TELE 01-12 04:11 → MED 01-22 16:04
PROVIDERS: ADMIT Nurse Practitioner Acute Care; ATTEND Nurse Practitioner Acute Care
PROC: 0W9G3ZZ Drainage of Peritoneal Cavity, Percutaneous Approach (ICD-10-PCS; principal; 2022-01-12)
PROC: 30233N1 Transfusion of Nonautologous Red Blood Cells into Peripheral Vein, Percutaneous Approach (ICD-10-PCS; 2022-01-14)
PROC: 0D9Q0ZZ Drainage of Anus, Open Approach (ICD-10-PCS; 2022-01-16)
DX: K70.31 Alcoholic cirrhosis of liver with ascites (principal); J96.01 Acute respiratory failure with hypoxia; K65.2 Spontaneous bacterial peritonitis; K85.90 Acute pancreatitis without necrosis or infection, unspecified; K61.2 Anorectal abscess; K76.6 Portal hypertension; I85.10 Secondary esophageal varices without bleeding; J90 Pleural effusion, not elsewhere classified; Z20.822 Contact with and (suspected) exposure to COVID-19; D69.6 Thrombocytopenia, unspecified; F10.21 Alcohol dependence, in remission; Z91.018 Allergy to other foods; Z79.899 Other long term (current) drug therapy; D53.9 Nutritional anemia, unspecified; R74.8 Abnormal levels of other serum enzymes; K31.9 Disease of stomach and duodenum, unspecified; F29 Unspecified psychosis not due to a substance or known physiological condition; K72.10 Chronic hepatic failure without coma; Z86.19 Personal history of other infectious and parasitic diseases; F12.90 Cannabis use, unspecified, uncomplicated; Z90.81 Acquired absence of spleen
CPT/HCPCS: 36415; 71045-TC; 76700-TC; 76942-TC; 80048-TC; 80053-TC; 80076-TC; 82140-TC; 83690-TC; 83735-TC; 83880; 84100-TC; 84703-TC; 85025-TC; 85610-TC; 85730-TC; 86850-TC; 87081-TC; 94799-TC; A4216; A6253; A6403; A6407; C9803; G0378; J0330; J0456; J0690; J0692; J0696; J1100; J1940; J2250; J2270; J2405; J2543; J2704; J2765; J3010; J3475; J3490; J7030; J7040; J7050; J7060; P9016; P9047

== ENCOUNTER 2022-12-31 10:13 | Inpatient (IN) | payer BC ==
[~2022-12-31] VITALS: Ht 152.4 cm; Wt 53.1 kg
[2022-12-31] VITALS (9 sets, daily range): BP systolic 87–101; BP diastolic 45–58; TEMP 97.1–99; O2SAT 97–98
[~2022-12-31 10:13] MED LIST changes: -ACID1TAB12 PO; +MULT-754 PO; -NITR100C15 PO; -PANT20TA2 PO; -PRED15SO6 PO
[2022-12-31] MEDS ORDERED: FOLI0.4T6 PO (10:47)
[2022-12-31] MEDS ORDERED: LACT10SO3 PO (10:47)
[2022-12-31] MEDS ORDERED: MULT-24 PO (10:47)
[2022-12-31] MEDS ORDERED: SPIR50TA5 PO (10:47)
[2022-12-31] MEDS ORDERED: THIA100T88 PO (10:47)
[2022-12-31] MEDS ORDERED: ONDA4TAB11 SL (10:47)
[2022-12-31 11:01] LABS: CALCIUM, SERUM 9.2 mg/dL (8.5-10.1); CARBON DIOXIDE 20 mmol/L (21-32); CHLORIDE 106 mmol/L (98-107); CREATININE 0.6 mg/dL (0.6-1.3); GLUCOSE 102 mg/dL (74-106); POTASSIUM 3.8 mmol/L (3.5-5.1); SODIUM SERUM 134 mmol/L (136-145); UREA NITROGEN, BLOOD 15 mg/dL (7-18)
[2022-12-31 11:03] LABS: SERUM AMMONIA < 10 umol/L (11-32)
[2022-12-31 11:06] LABS: ALANINE AMINOTRANSFERASE 32 U/L (12-78); ALBUMIN 1.9 g/dL (3.4-5.0); ALKALINE PHOSPHATASE 137 U/L (46-116); ASPARTATE AMINOTRANSFERASE 67 U/L (15-37); BILIRUBIN,DIRECT 10.1 mg/dL (0.0-0.2); INR 1.95 (0.91-1.10); LIPASE 15 U/L (73-393); PARTIAL THROMBOPLASTIN TIME 43.6 SEC (24.3-34.3); PROTHROMBIN TIME 19.7 SECS (9.2-11.1); TOTAL PROTEIN, SERUM 5.7 g/dL (6.4-8.2)
[2022-12-31 11:13] LABS: LACTIC ACID 1.6 mmol/L (0.4-2.0)
[2022-12-31 11:22] LABS: EOSINOPHILS % (AUTO) 0.8 % (0.0-6.0); LYMPHOCYTES # (AUTO) 0.5 K/uL (0.8-4.8); LYMPHOCYTES % (AUTO) 12.7 % (20.0-44.0); MEAN CORPUSCULAR HEMOGLOBIN 42 PG (26.0-33.0); MEAN CORPUSCULAR HGB CONC 36 g/dl (31.0-36.0); MEAN CORPUSCULAR VOLUME 119 fL (82-100); MONOCYTES # (AUTO) 0.2 K/uL (0.1-1.30); MONOCYTES % (AUTO) 6.6 % (2.0-12.0); NEUTROPHILS # (AUTO) 2.9 K/uL (1.8-8.9); NEUTROPHILS % (AUTO) 78.9 % (43.0-81.0); RED CELL DISTRIBUTION WIDTH 16.1 % (11.5-15.0); WHITE BLOOD COUNT (AUTO) 3.7 K/uL (4.3-11.0)
[2022-12-31 11:39] LABS: HEMATOCRIT 17 % (33-45); HEMOGLOBIN 5.9 g/dL (11.5-14.8); PLATELET COUNT (AUTO) 44 K/uL (150-450)
[2022-12-31] MEDS ORDERED: ACETAMINOPHEN 325 MG TABLET PO PRN (12:00)
[2022-12-31] MEDS ORDERED: ONDANSETRON HCL/PF 4 MG/2 ML VIAL IVP PRN (12:00)
[2022-12-31] MEDS ORDERED: MORPHINE SULFATE INJ 2 MG/ML DISP.SYRIN IV PRN (12:00)
[2022-12-31 12:25] LABS: ANISOCYTOSIS 1+; BASOPHILS % (MANUAL) 0 % (0.0-2.0); EOSINOPHILS % (MANUAL) 0 % (0-4); LYMPHOCYTES % (MANUAL) 11 % (16-48); MONOCYTES % (MANUAL) 8 % (0-11.0); NEUTROPHILS % (MANUAL) 81 (42-76); OVALOCYTES 1+; PLATELET ESTIMATE DECREASED
[2022-12-31] MEDS ORDERED: LACTULOSE 10 G/15 ML UDC (PYXIS) PO PRN (13:00)
[2022-12-31 13:18] LABS: PREGNANCY TEST URINE QUAL NEGATIVE (NEGATIVE)
[2022-12-31 18:01] LABS: HEMOGLOBIN 8.1 g/dL (11.5-14.8)
[2023-01-01] VITALS (9 sets, daily range): BP systolic 90–125; BP diastolic 45–82; TEMP 97.7–98.9; O2SAT 96–100
[2023-01-01 02:15] LABS: HEMOGLOBIN 6.7 g/dL (11.5-14.8)
[2023-01-01 06:50] LABS: BASOPHILS % (AUTO) 1.5 % (0.0-2.0); EOSINOPHILS % (AUTO) 0.5 % (0.0-6.0); LYMPHOCYTES # (AUTO) 0.5 K/uL (0.8-4.8); LYMPHOCYTES % (AUTO) 17.6 % (20.0-44.0); MEAN CORPUSCULAR HEMOGLOBIN 38 PG (26.0-33.0); MEAN CORPUSCULAR HGB CONC 35 g/dl (31.0-36.0); MEAN CORPUSCULAR VOLUME 110 fL (82-100); MONOCYTES # (AUTO) 0.2 K/uL (0.1-1.30); MONOCYTES % (AUTO) 7.5 % (2.0-12.0); NEUTROPHILS # (AUTO) 2.2 K/uL (1.8-8.9); NEUTROPHILS % (AUTO) 72.9 % (43.0-81.0); RED CELL DISTRIBUTION WIDTH 23.3 % (11.5-15.0)
[2023-01-01 07:03] LABS: RED BLOOD CELL COUNT(AUTO) 1.69 MIL/uL (4.0-5.2)
[2023-01-01 07:04] LABS: PLATELET COUNT (AUTO) 39 K/uL (150-450)
[2023-01-01 07:05] LABS: HEMATOCRIT 19 % (33-45); HEMOGLOBIN 6.5 g/dL (11.5-14.8)
[2023-01-01 07:20] LABS: ALBUMIN 1.7 g/dL (3.4-5.0); BILIRUBIN,TOTAL 17.7 mg/dL (0.2-1.0); CALCIUM, SERUM 8.9 mg/dL (8.5-10.1); CREATININE 0.5 mg/dL (0.6-1.3); MAGNESIUM 1.5 mg/dL (1.8-2.4); PHOSPHORUS 3.8 mg/dL (2.5-4.9); TOTAL PROTEIN, SERUM 5.1 g/dL (6.4-8.2)
[2023-01-01 08:07] LABS: HBSAG SCREEN Negative (Negative); HEPATITIS A AB, IgM Negative (Negative); HEPATITIS B CORE AB, IgM Negative (Negative)
[2023-01-01] MEDS: THIAMINE HCL 100 MG TABLET PO SCH (08:13)
[2023-01-01] MEDS: MULTIVITAMINS,THERAGRAN 1 UDTAB TABLET PO SCH (08:14)
[2023-01-01] MEDS: FOLIC ACID 1 MG TABLET PO SCH (08:14)
[2023-01-01] MEDS: SPIRONOLACTONE 25 MG TABLET PO SCH (09:00)
[2023-01-01] MEDS ORDERED: MAGNESIUM OXIDE 400 MG TABLET PO ONE (10:00)
[2023-01-01 10:30] LABS: HEMOGLOBIN 8.6 g/dL (11.5-14.8)
[2023-01-01 10:34] LABS: POTASSIUM 4.3 mmol/L (3.5-5.1)
[2023-01-01] MEDS: MIDODRINE HCL (5MG) 5 MG TABLET PO PRN (11:15)
[2023-01-01 11:18] LABS: ANISOCYTOSIS 1+; BASOPHILS % (MANUAL) 0 % (0.0-2.0); EOSINOPHILS % (MANUAL) 0 % (0-4); HYPOCHROMASIA 1+; LYMPHOCYTES % (MANUAL) 15 % (16-48); MONOCYTES % (MANUAL) 6 % (0-11.0); NEUTROPHILS % (MANUAL) 79 (42-76); PLATELET ESTIMATE DECREASED
[2023-01-01] MEDS ORDERED: ALBUMIN 25% 25 GM in PREMIX 1 EA IV SCH (12:30)
[2023-01-01] MEDS: TRAZODONE 50 MG TABLET PO SCH (21:58)
[2023-01-02] VITALS (19 sets, daily range): BP systolic 86–198; BP diastolic 43–64; TEMP 97.7–98.6; O2SAT 94–98
[2023-01-02] MEDS: MIDODRINE HCL (5MG) 5 MG TABLET PO PRN (04:39)
[2023-01-02] MEDS: SPIRONOLACTONE 25 MG TABLET PO SCH (09:00)
[2023-01-02] MEDS: MULTIVITAMINS,THERAGRAN 1 UDTAB TABLET PO SCH (09:16)
[2023-01-02] MEDS: FOLIC ACID 1 MG TABLET PO SCH (09:16)
[2023-01-02] MEDS: THIAMINE HCL 100 MG TABLET PO SCH (09:17)
[2023-01-02 10:47] LABS: HEMOGLOBIN 8.1 g/dL (11.5-14.8)
[2023-01-02 11:00] LABS: INR 2.05 (0.91-1.10); PARTIAL THROMBOPLASTIN TIME 48.9 SEC (24.3-34.3); PROTHROMBIN TIME 20.7 SECS (9.2-11.1)
[2023-01-02 11:02] LABS: D-DIMER 5.18 mg/L(FEU (0.17-0.50)
[2023-01-02] MEDS ORDERED: PHYTONADIONE INJ 10 MG/1 ML AMPUL SQ ONE (16:00)
[2023-01-02] MEDS: CEFTRIAXONE 2 G in IV D5W 100 ML IV SCH (18:12)
[2023-01-02 20:32] LABS: HEMOGLOBIN 8.1 g/dL (11.5-14.8)
[2023-01-02] MEDS: TRAZODONE 50 MG TABLET PO SCH (21:58)
[2023-01-02 23:21] LABS: APPEARANCE,URINE TURBID (CLEAR); BILIRUBIN,URINE 3+ (NEGATIVE); BLOOD, URINE NEGATIVE Ery/uL (NEGATIVE); COLOR,URINE AMBER (YELLOW); KETONES,URINE 1+ mg/dL (NEGATIVE); LEUKOCYTE ESTERASE ,URINE TRACE (NEGATIVE); NITRITE, URINE POSITIVE (NEGATIVE); PH,URINE 6.5 (5.0-8.0); PROTEIN,URINE 1+ mg/dl (NEGATIVE); UGLUCOSE TRACE mg/dL (NEGATIVE)
[2023-01-02 23:41] LABS: ADD URINE CULTURE YES; BACTERIA,URINE Many /HPF (None Seen); RBC,URINE 0-2 /HPF (0-2)
[2023-01-02 23:43] LABS: URINE AMORPHOUS URATE Moderate /HPF (None Seen)
[2023-01-03] VITALS (11 sets, daily range): BP systolic 94–110; BP diastolic 51–65; TEMP 97.6–98.9; O2SAT 97–100
[2023-01-03 07:36] LABS: BASOPHILS # (AUTO) 0.1 K/uL (0.0-0.2); BASOPHILS % (AUTO) 1.9 % (0.0-2.0); EOSINOPHILS % (AUTO) 0.4 % (0.0-6.0); LYMPHOCYTES # (AUTO) 0.3 K/uL (0.8-4.8); LYMPHOCYTES % (AUTO) 10.8 % (20.0-44.0); MEAN CORPUSCULAR HEMOGLOBIN 34 PG (26.0-33.0); MEAN CORPUSCULAR HGB CONC 35 g/dl (31.0-36.0); MEAN CORPUSCULAR VOLUME 98 fL (82-100); MONOCYTES # (AUTO) 0.2 K/uL (0.1-1.30); MONOCYTES % (AUTO) 6.6 % (2.0-12.0); NEUTROPHILS # (AUTO) 2.4 K/uL (1.8-8.9); NEUTROPHILS % (AUTO) 80.3 % (43.0-81.0); RED BLOOD CELL COUNT(AUTO) 2.04 MIL/uL (4.0-5.2); RED CELL DISTRIBUTION WIDTH 33.9 % (11.5-15.0); RETICULOCYTE COUNT 6.5 % (0.6-2.5)
[2023-01-03 07:39] LABS: HEMATOCRIT 20 % (33-45)
[2023-01-03 07:42] LABS: HEMOGLOBIN 6.9 g/dL (11.5-14.8); PLATELET COUNT (AUTO) 30 K/uL (150-450)
[2023-01-03 07:51] LABS: RHEUMATOID FACTOR SCREEN NEGATIVE (NEGATIVE)
[2023-01-03 07:53] LABS: INR 1.86 (0.91-1.10); PARTIAL THROMBOPLASTIN TIME 48.7 SEC (24.3-34.3); PROTHROMBIN TIME 18.9 SECS (9.2-11.1)
[2023-01-03 07:54] LABS: D-DIMER 6.36 mg/L(FEU (0.17-0.50)
[2023-01-03 08:12] LABS: IRON, SERUM 100 ug/dl (50-175); TOTAL IRON BINDING CAPACITY 104 ug/dl (250-450)
[2023-01-03 08:30] LABS: ALANINE AMINOTRANSFERASE 26 U/L (12-78); ALBUMIN 1.8 g/dL (3.4-5.0); ALKALINE PHOSPHATASE 108 U/L (46-116); ASPARTATE AMINOTRANSFERASE 59 U/L (15-37); BILIRUBIN,TOTAL 15.2 mg/dL (0.2-1.0); CALCIUM, SERUM 8.6 mg/dL (8.5-10.1); CARBON DIOXIDE 19 mmol/L (21-32); CHLORIDE 107 mmol/L (98-107); CREATININE 0.5 mg/dL (0.6-1.3); GLUCOSE 104 mg/dL (74-106); POTASSIUM 3.9 mmol/L (3.5-5.1); SODIUM SERUM 136 mmol/L (136-145); TOTAL PROTEIN, SERUM 4.8 g/dL (6.4-8.2); UREA NITROGEN, BLOOD 15 mg/dL (7-18)
[2023-01-03 08:48] LABS: FERRITIN 1621 ng/mL (8-388)
[2023-01-03 08:50] LABS: C-REACTIVE PROTEIN < 0.2 mg/dL (0.0-0.9)
[2023-01-03 10:52] LABS: HEMOGLOBIN 6.7 g/dL (11.5-14.8)
[2023-01-03] MEDS ORDERED: diphenhydrAMINE HCL 50 MG/ML VIAL IV ONE (12:30)
[2023-01-03 12:31] LABS: ANISOCYTOSIS 1+; BASOPHILS % (MANUAL) 0 % (0.0-2.0); EOSINOPHILS % (MANUAL) 0 % (0-4); LYMPHOCYTES % (MANUAL) 14 % (16-48); MONOCYTES % (MANUAL) 8 % (0-11.0); NEUTROPHILS % (MANUAL) 78 (42-76); PLATELET ESTIMATE DECREASED
[2023-01-03] MEDS: MULTIVITAMINS,THERAGRAN 1 UDTAB TABLET PO SCH (12:45)
[2023-01-03] MEDS: SPIRONOLACTONE 25 MG TABLET PO SCH (12:45)
[2023-01-03] MEDS: FOLIC ACID 1 MG TABLET PO SCH (12:45)
[2023-01-03] MEDS: THIAMINE HCL 100 MG TABLET PO SCH (12:46)
[2023-01-03] MEDS: METRONIDAZOLE 500 MG TABLET PO SCH ×2 (14:32→21:42)
[2023-01-03] MEDS: CEFTRIAXONE 2 G in IV D5W 100 ML IV SCH (18:06)
[2023-01-03 20:30] LABS: HEMOGLOBIN 8.4 g/dL (11.5-14.8)
[2023-01-03] MEDS: TRAZODONE 50 MG TABLET PO SCH (21:42)
[2023-01-04] VITALS: BP 98/55; TEMP 97.9; O2SAT 95
[2023-01-04 02:16] LABS: HEMOGLOBIN 8.5 g/dL (11.5-14.8)
[2023-01-04 04:00] VITALS: BP 103/56; TEMP 98.4; O2SAT 98
[2023-01-04] MEDS: METRONIDAZOLE 500 MG TABLET PO SCH ×3 (04:57→20:37)
[2023-01-04 06:16] LABS: BASOPHILS % (AUTO) 1.2 % (0.0-2.0); EOSINOPHILS % (AUTO) 0.4 % (0.0-6.0); HEMATOCRIT 24 % (33-45); HEMOGLOBIN 8.1 g/dL (11.5-14.8); LYMPHOCYTES # (AUTO) 0.3 K/uL (0.8-4.8); LYMPHOCYTES % (AUTO) 15.5 % (20.0-44.0); MEAN CORPUSCULAR HEMOGLOBIN 32 PG (26.0-33.0); MEAN CORPUSCULAR HGB CONC 34 g/dl (31.0-36.0); MEAN CORPUSCULAR VOLUME 95 fL (82-100); MONOCYTES # (AUTO) 0.3 K/uL (0.1-1.30); MONOCYTES % (AUTO) 11.3 % (2.0-12.0); NEUTROPHILS # (AUTO) 1.6 K/uL (1.8-8.9); NEUTROPHILS % (AUTO) 71.6 % (43.0-81.0); RED CELL DISTRIBUTION WIDTH 30.5 % (11.5-15.0); WHITE BLOOD COUNT (AUTO) 2.3 K/uL (4.3-11.0)
[2023-01-04 06:26] LABS: PLATELET COUNT (AUTO) 24 K/uL (150-450)
[2023-01-04 06:29] LABS: ALBUMIN 1.7 g/dL (3.4-5.0); BILIRUBIN,TOTAL 15.1 mg/dL (0.2-1.0); CALCIUM, SERUM 8.7 mg/dL (8.5-10.1); CREATININE 0.5 mg/dL (0.6-1.3); POTASSIUM 4.2 mmol/L (3.5-5.1); TOTAL PROTEIN, SERUM 4.6 g/dL (6.4-8.2)
[2023-01-04 06:35] LABS: INR 1.91 (0.91-1.10); PARTIAL THROMBOPLASTIN TIME 51.7 SEC (24.3-34.3); PROTHROMBIN TIME 19.3 SECS (9.2-11.1)
[2023-01-04 06:37] LABS: D-DIMER 5.79 mg/L(FEU (0.17-0.50)
[2023-01-04 08:00] VITALS: BP 100/66; TEMP 97.9; O2SAT 98
[2023-01-04] MEDS: MULTIVITAMINS,THERAGRAN 1 UDTAB TABLET PO SCH ×2 (10:03→10:04)
[2023-01-04] MEDS: THIAMINE HCL 100 MG TABLET PO SCH (10:04)
[2023-01-04] MEDS: SPIRONOLACTONE 25 MG TABLET PO SCH (10:05)
[2023-01-04] MEDS: FOLIC ACID 1 MG TABLET PO SCH (10:05)
[2023-01-04 10:07] LABS: *ANA ANTI-CENTROMERE B AB <0.2 AI (0.0-0.9); *ANA ANTI-DNA(DS) AB, QN 7 IU/mL (0-9); *ANA ANTI-JO-1 <0.2 AI (0.0-0.9); *ANA ANTICHROMATIN ANTIBODY <0.2 AI (0.0-0.9); *ANA RNP ANTIBODIES <0.2 AI (0.0-0.9); *ANA SJOGREN'S ANTI-SS-B <0.2 AI (0.0-0.9); *ANAANTI-SCLERODERMA-70 AB <0.2 AI (0.0-0.9); *ANASMITH AB <0.2 AI (0.0-0.9)
[2023-01-04 11:06] LABS: IMMUNOGLOBULIN A, SERUM 360 mg/dL (87-352); IMMUNOGLOBULIN G, SERUM 1435 mg/dL (586-1602); IMMUNOGLOBULIN M, SERUM 96 mg/dL (26-217)
[2023-01-04 11:32] LABS: HEMOGLOBIN 8.1 g/dL (11.5-14.8)
[2023-01-04 12:00] VITALS: BP 114/67; TEMP 97.6; O2SAT 98
[2023-01-04 12:10] LABS: OCCULT BLOOD STOOL NEGATIVE (NEGATIVE)
[2023-01-04 12:19] LABS: ANISOCYTOSIS 2+; LYMPHOCYTES % (MANUAL) 16 % (16-48); MONOCYTES % (MANUAL) 10 % (0-11.0); NEUTROPHILS % (MANUAL) 74 (42-76); PLATELET ESTIMATE DECREASED
[2023-01-04 12:20] LABS: OVALOCYTES 1+
[2023-01-04 13:04] LABS: IRON, SERUM 104 ug/dl (50-175); TOTAL IRON BINDING CAPACITY 96 ug/dl (250-450)
[2023-01-04 13:26] LABS: FERRITIN 1647 ng/mL (8-388)
[2023-01-04 16:00] VITALS: BP 110/58; TEMP 98.2; O2SAT 97
[2023-01-04] MEDS: CEFTRIAXONE 2 G in IV D5W 100 ML IV SCH (18:00)
[2023-01-04] MEDS ORDERED: prednisoLONE 5 MG/5 ML UDC PO ONE (19:00)
[2023-01-04 20:00] VITALS: BP 104/58; TEMP 98.2; O2SAT 97
[2023-01-04] MEDS ORDERED: predniSONE 20 MG TABLET PO ONE (20:00)
[2023-01-04] MEDS ORDERED: predniSONE 20 MG TABLET PO SCH (20:00)
[2023-01-04] MEDS: FUROSEMIDE 40 MG TABLET PO SCH (20:37)
[2023-01-04] MEDS: TRAZODONE 50 MG TABLET PO SCH (21:52)
[2023-01-05] VITALS: BP 106/52; TEMP 98; O2SAT 97
[2023-01-05 00:07] LABS: FOLIC ACID 15.9 ng/mL (>3.0)
[2023-01-05 01:07] LABS: AFP, TUMOR MARKER 4.2 ng/mL (0.0-6.4); CANCER AG, 15-3 41.6 U/mL (0.0-25.0)
[2023-01-05 02:08] LABS: HEMOGLOBIN 8.3 g/dL (11.5-14.8)
[2023-01-05 03:07] LABS: HBSAG SCREEN Negative (Negative); HEPATITIS A AB, IgM Negative (Negative); HEPATITIS B CORE AB, IgM Negative (Negative)
[2023-01-05 04:00] VITALS: BP 104/56; TEMP 98.2; O2SAT 95
[2023-01-05] MEDS: METRONIDAZOLE 500 MG TABLET PO SCH ×2 (04:29→13:00)
[2023-01-05 06:29] LABS: BASOPHILS % (AUTO) 0.3 % (0.0-2.0); HEMATOCRIT 26 % (33-45); HEMOGLOBIN 9.1 g/dL (11.5-14.8); LYMPHOCYTES # (AUTO) 0.2 K/uL (0.8-4.8); LYMPHOCYTES % (AUTO) 7.9 % (20.0-44.0); MEAN CORPUSCULAR HEMOGLOBIN 33 PG (26.0-33.0); MEAN CORPUSCULAR HGB CONC 35 g/dl (31.0-36.0); MEAN CORPUSCULAR VOLUME 96 fL (82-100); MONOCYTES # (AUTO) 0.1 K/uL (0.1-1.30); MONOCYTES % (AUTO) 5.2 % (2.0-12.0); NEUTROPHILS # (AUTO) 2.4 K/uL (1.8-8.9); NEUTROPHILS % (AUTO) 86.6 % (43.0-81.0); RED BLOOD CELL COUNT(AUTO) 2.75 MIL/uL (4.0-5.2); WHITE BLOOD COUNT (AUTO) 2.8 K/uL (4.3-11.0)
[2023-01-05 06:33] LABS: PLATELET COUNT (AUTO) 27 K/uL (150-450)
[2023-01-05 06:45] LABS: D-DIMER 6.46 mg/L(FEU (0.17-0.50); INR 1.79 (0.91-1.10); PARTIAL THROMBOPLASTIN TIME 50.5 SEC (24.3-34.3); PROTHROMBIN TIME 18.2 SECS (9.2-11.1)
[2023-01-05 07:14] LABS: ALBUMIN 1.8 g/dL (3.4-5.0); CREATININE 0.6 mg/dL (0.6-1.3); POTASSIUM 4.7 mmol/L (3.5-5.1)
[2023-01-05 08:00] VITALS: BP 106/60; TEMP 98.2; O2SAT 96
[2023-01-05] MEDS ORDERED: ENSURE ENLIVE 237 ML LIQUID (VANILLA) PO SCH (09:00)
[2023-01-05] MEDS ORDERED: PROSOURCE / PROSTAT (PYXIS) 30 ML UDC PO SCH (09:00)
[2023-01-05] MEDS: THIAMINE HCL 100 MG TABLET PO SCH (09:27)
[2023-01-05] MEDS: SPIRONOLACTONE 25 MG TABLET PO SCH (09:28)
[2023-01-05] MEDS: FOLIC ACID 1 MG TABLET PO SCH (09:28)
[2023-01-05] MEDS: FUROSEMIDE 40 MG TABLET PO SCH (09:28)
[2023-01-05 10:07] LABS: *SPE A/G RATIO 0.9 (0.7-1.7); *SPE ALBUMIN 2.1 g/dL (2.9-4.4); *SPE ALPHA-1-GLOBULIN 0.2 g/dL (0.0-0.4); *SPE ALPHA-2-GLOBULIN 0.4 g/dL (0.4-1.0); *SPE BETA GLOBULIN 0.7 g/dL (0.7-1.3); *SPE GLOBULIN, TOTAL 2.4 g/dL (2.2-3.9); *SPE M-SPIKE Not Observed g/dL (Not Observed); *SPE PROTEIN TOTAL 4.5 g/dL (6.0-8.5); *SPEGAMMA GLOBULIN 1.1 g/dL (0.4-1.8)
[2023-01-05 10:55] LABS: ANISOCYTOSIS 1+; BAND % (MANUAL) 4 % (0.0-5.0); BASOPHILS % (MANUAL) 0 % (0.0-2.0); EOSINOPHILS % (MANUAL) 0 % (0-4); LYMPHOCYTES % (MANUAL) 9 % (16-48); MONOCYTES % (MANUAL) 6 % (0-11.0); NEUTROPHILS % (MANUAL) 81 (42-76); PLATELET ESTIMATE DECREASED
[2023-01-05 11:19] LABS: HEMOGLOBIN 8.6 g/dL (11.5-14.8)
[2023-01-05] MEDS ORDERED: FURO40TA5 PO (11:44)
[2023-01-05 12:00] VITALS: BP 104/58; TEMP 98.1; O2SAT 95
== END 2023-01-05 20:17 | disposition home health service (06) | DRG 432 ==
LOC: ER 10:35 → TELE1 12:36 → TELE-TD 13:24 → TELE1 01-01 09:59
PROVIDERS: ADMIT Internal Medicine; ATTEND Nurse Practitioner Acute Care
PROC: 30233N1 Transfusion of Nonautologous Red Blood Cells into Peripheral Vein, Percutaneous Approach (ICD-10-PCS; 2022-12-31)
PROC: 0W9G3ZX Drainage of Peritoneal Cavity, Percutaneous Approach, Diagnostic (ICD-10-PCS; 2023-01-01)
PROC: 30233M1 Transfusion of Nonautologous Plasma Cryoprecipitate into Peripheral Vein, Percutaneous Approach (ICD-10-PCS; principal; 2023-01-02)
PROC: 0DJ08ZZ Inspection of Upper Intestinal Tract, Via Natural or Artificial Opening Endoscopic (ICD-10-PCS; 2023-01-04)
PROC: 05HB33Z Insertion of Infusion Device into Right Basilic Vein, Percutaneous Approach (ICD-10-PCS; 2023-01-05)
DX: K70.31 Alcoholic cirrhosis of liver with ascites (principal); D65 Disseminated intravascular coagulation [defibrination syndrome]; K76.6 Portal hypertension; D61.818 Other pancytopenia; J98.11 Atelectasis; J90 Pleural effusion, not elsewhere classified; I31.39 Other pericardial effusion (noninflammatory); D68.9 Coagulation defect, unspecified; K31.89 Other diseases of stomach and duodenum; E86.0 Dehydration; Z98.890 Other specified postprocedural states; Z88.8 Allergy status to other drugs, medicaments and biological substances; Z91.018 Allergy to other foods; Z79.899 Other long term (current) drug therapy; D63.8 Anemia in other chronic diseases classified elsewhere; E80.6 Other disorders of bilirubin metabolism; K80.20 Calculus of gallbladder without cholecystitis without obstruction; N63.0 Unspecified lump in unspecified breast; I95.89 Other hypotension
CPT/HCPCS: 36415; 49083; 71045-TC; 71270-TC; 74178; 76641-TC; 76700-TC; 76705-TC; 80048-TC; 80053-TC; 80076-TC; 81001; 82105; 82140-TC; 82272-TC; 82378; 82607-TC; 82728-TC; 82784; 83540-TC; 83605-TC; 83690-TC; 83735-TC; 84100-TC; 84155; 84165; 84439-TC; 84443-TC; 84703-TC; 85025-TC; 85027-TC; 85045-TC; 85396; 85730-TC; 86140-TC; 86225; 86235; 86300; 86334; 86431-TC; 86850-TC; 87040-TC; 87086-TC; 87806; A4216; A4223; G0378; J0696; J1200; J2405; J2704; J3430; J3490; J7030; J7050; J7060; J7510; P9012; P9016; P9047

== ENCOUNTER 2023-01-29 18:00 | Emergency (ER) | payer BC ==
[~2023-01-29] VITALS: Ht 154.9 cm; Wt 54.4 kg
[~2023-01-29 18:00] MED LIST changes: +FOLI0.4T6 PO; -FOLI0.8C PO; +FURO40TA5 PO; +LACT10SO3 PO; +MULT-24 PO; -MULT-754 PO; -ONDA4TAB11 PO; +ONDA4TAB11 SL; -SPIR25TA6 PO; +SPIR50TA5 PO; +THIA100T88 PO; -Thiamine HCL PO
[2023-01-29] MEDS ORDERED: ONDANSETRON HCL/PF 4 MG/2 ML VIAL ONE (19:25)
[2023-01-29] MEDS ORDERED: IV NS 0.9% 1,000 ML BAG IV ONE (19:30)
[2023-01-29] MEDS ORDERED: ONDANSETRON HCL/PF 4 MG/2 ML VIAL IVP ONE (19:30)
[2023-01-29 19:43] LABS: BASOPHILS % (AUTO) 0.8 % (0.0-2.0); EOSINOPHILS % (AUTO) 0.1 % (0.0-6.0); HEMATOCRIT 22 % (33-45); HEMOGLOBIN 7.7 g/dL (11.5-14.8); LYMPHOCYTES # (AUTO) 0.3 K/uL (0.8-4.8); LYMPHOCYTES % (AUTO) 6.9 % (20.0-44.0); MEAN CORPUSCULAR HEMOGLOBIN 34 PG (26.0-33.0); MEAN CORPUSCULAR HGB CONC 35 g/dl (31.0-36.0); MEAN CORPUSCULAR VOLUME 97 fL (82-100); MONOCYTES # (AUTO) 0.3 K/uL (0.1-1.30); MONOCYTES % (AUTO) 7.5 % (2.0-12.0); NEUTROPHILS # (AUTO) 3.9 K/uL (1.8-8.9); NEUTROPHILS % (AUTO) 84.7 % (43.0-81.0); PLATELET COUNT (AUTO) 62 K/uL (150-450); RED BLOOD CELL COUNT(AUTO) 2.28 MIL/uL (4.0-5.2); RED CELL DISTRIBUTION WIDTH 23.7 % (11.5-15.0); WHITE BLOOD COUNT (AUTO) 4.6 K/uL (4.3-11.0)
[2023-01-29 20:05] LABS: CALCIUM, SERUM 9.2 mg/dL (8.5-10.1); CARBON DIOXIDE 21 mmol/L (21-32); CHLORIDE 105 mmol/L (98-107); CREATININE 0.5 mg/dL (0.6-1.3); GLUCOSE 112 mg/dL (74-106); POTASSIUM 4.8 mmol/L (3.5-5.1); SODIUM SERUM 136 mmol/L (136-145); UREA NITROGEN, BLOOD 31 mg/dL (7-18)
[2023-01-29 20:11] LABS: ALANINE AMINOTRANSFERASE 52 U/L (12-78); ALBUMIN 1.8 g/dL (3.4-5.0); ALKALINE PHOSPHATASE 116 U/L (46-116); ASPARTATE AMINOTRANSFERASE 55 U/L (15-37); BILIRUBIN,DIRECT 10.2 mg/dL (0.0-0.2); BILIRUBIN,TOTAL 18.3 mg/dL (0.2-1.0); LIPASE 10 U/L (16-77)
[2023-01-29] MEDS ORDERED: METOCLOPRAMIDE HCL 10 MG/2 ML VIAL IV ONE (21:30)
[2023-01-29] MEDS ORDERED: METOCLOPRAMIDE HCL 10 MG/2 ML VIAL ONE (21:33)
[2023-01-29] MEDS ORDERED: METO5SOL GT (21:50)
[2023-01-29 22:29] LABS: LYMPHOCYTES % (MANUAL) 12 % (16-48); MONOCYTES % (MANUAL) 8 % (0-11.0); NEUTROPHILS % (MANUAL) 80 (42-76); PLATELET ESTIMATE DECREASED
[2023-01-29 22:30] LABS: ANISOCYTOSIS 1+; ROULEAUX 1+
[2023-01-29 22:40] VITALS: BP 110/65; TEMP 98; O2SAT 100
== END 2023-01-29 22:41 | disposition home or self-care (01) ==
LOC: ER 18:00
DX: R10.9 Unspecified abdominal pain (principal); R11.2 Nausea with vomiting, unspecified
CPT/HCPCS: 99284; 96365; 96361; 96375; 85025; 80048; 87040 ×2; 83605; 83690; 80076; 36415; 86900; 86850; 85007; J2765; J2405; J7030